=== PATIENT | male | born 1955 | race Caucasian/White ===

== ENCOUNTER → 2017-12-12 08:05 | Outpatient (CLI) | payer BC, SELFPAY | PROVIDERS: Family Provider Family Medicine; PCP Family Medicine; Visit Provider Family Medicine | DX: R13.10 Dysphagia, unspecified (principal) | CPT/HCPCS: 74246 ==

== ENCOUNTER → 2019-12-07 14:03 | Outpatient (CLI) | payer BC, SELFPAY ==
--- NOTE | 2019-12-07 14:16 | EKG12_ITS ---
Test Reason : PREOP Blood Pressure : / mmHG Vent. Rate : 064 BPM Atrial Rate : 064 BPM P-R Int : 160 ms QRS Dur : 078 ms QT Int : 426 ms P-R-T Axes : 055 005 016 degrees QTc Int : 439 ms Normal sinus rhythm Normal ECG Confirmed by EVENS DOUGHERTY, TAMMI ([id number]), senior technical editor CARLOS BANGURA ([id number]) on 12/08/2019 10:48:52 AM Referred By: Nathaniel Garcia Confirmed By:TAMMI HORNER MD
[2019-12-07 14:35] LABS: Hematocrit 46.1 % (40-54); Hemoglobin 15.1 g/dL (13.0-16.5); Mean Corp Hgb Conc 32.8 g/dL (32-36); Mean Corpuscular Hgb 29.9 pg (27.0-32.0); Mean Corpuscular Volume 91.3 fL (80-94); Mean Platelet Vol. 9.4 fl (6.2-12.0); Platelet Count 246 K/mm3 (150-450); RBC Distribution Width CV 13.4 % (11.6-14.6); RBC Distribution Width SD 44.5 fl (35.1-43.9); Red Blood Count 5.05 M/mm3 (4.6-6.2); White Blood Count 8.1 K/mm3 (4.4-11.0)
[2019-12-07 14:49] LABS: Anion Gap 6 (5-15); BUN 17 mg/dL (7-18); BUN/Creat Ratio 17.6 RATIO (10-20); Chloride 106 mmol/L (98-107); Creatinine, Serum 0.96 mg/dL (0.70-1.30); EST Glomerular Filtration Rate 84 mL/min (>60); Est Glom Filt Rate - Afr Amer 101 mL/min (>60); Glucose 90 mg/dL (74-106); Potassium 3.5 mmol/L (3.5-5.1); Sodium Level 139 mmol/L (136-145)
== END ==
PROVIDERS: PCP Family Medicine; Referring Provider Physician Assistant Surgical; Visit Provider Physician Assistant Surgical
DX: Z01.810 Encounter for preprocedural cardiovascular examination (principal); Z01.818 Encounter for other preprocedural examination
CPT/HCPCS: 36415; 80048; 85027; 93005

== ENCOUNTER → 2019-12-08 11:20 | Outpatient (CLI) | payer BC, SELFPAY | PROVIDERS: PCP Family Medicine; Referring Provider Physician Assistant Surgical; Visit Provider Physician Assistant Surgical | DX: Z11.59 Encounter for screening for other viral diseases (principal) | CPT/HCPCS: 87635; 94799; U0003 ==

== ENCOUNTER 2024-12-27 11:38 | Emergency (ER) | payer MEDICARE, BC, SELFPAY ==
[2024-12-27 11:38] VITALS: BP 198/97; PULSE 81; RESP 16; TEMP 36.1; O2SAT 100; BMI 31.2
--- NOTE | 2024-12-27 11:53 | EDS_ITS ---
HPI HPI - GI History of Present Illness Chief Complaint: GI Bleed Informant: patient Abdominal Pain/Flank Pain Onset: Today Current Severity: Mild Nausea/Vomiting/Emesis GI Symptom: Negative for Nausea or Vomiting Diarrhea/Melena/Hematochezia GI Symptom: Positive for Melena; Negative for Diarrhea or Hematochezia Associated Symptoms Associated Symptoms: Negative for Dysuria, Frequency, Hematuria or Urgency Narrative Narrative: 69-year-old male today had blood in his stool. It was mainly dark. He has no history of GI bleed. He has never had rectal bleeding. He denies any nausea no weight loss. He has had no significant abdominal surgeries. Is not ever had upper or lower endoscopy they tried 1 time to do a colonoscopy but he said it was not very informative because he was not cleaned out enough. No history of cancer. He denies any abdominal pain. No nausea or vomiting. No hematemesis. He does use both meloxicam and allopurinol for gout and arthritis. He does occasionally use prilosec for hiatal hernia. Prior similar symptoms: No Recent Illness/Hospitalization: No PFSH [facility] Medical History (Updated 12/27/24 @ 13:[address] Calin Orellana MD) Hypertension GERD (gastroesophageal reflux disease) Hiatal hernia Home Medications ?Medication ?Instructions ?Recorded ?Last Taken ?Type pantoprazole 40 mg tablet,delayed 40 mg PO BID #60 tab s 12/27/24 Unknown Rx release (Protonix) Allergy/AdvReac Type Severity Reaction Status Date / Time Penicillins (PCN) Allergy Intermediate Hives Verified 12/27/24 11:40 Family History no significant family his Social History Smoking Status: Never smoker ROS ROS ED ROS Narrative Denies recent illness. Constitutional Constitutional ED: Denies chills or fever(s) ENT ENT ED: Denies ear pain Cardiovascular Cardiovascular: Denies chest pain Respiratory/Chest Respiratory/Chest: Denies cough or dyspnea Gastrointestinal Gastrointestinal: Denies abdominal pain Genitourinary Genitourinary ED: Denies dysuria or hematuria Musculoskeletal Musculoskeletal: Denies arthralgias Integumentary Denies abscess Neurologic Neurologic: Denies headache(s) Psychiatric Psychiatric: Denies anxiety or depression Endocrine Endocrinology: Denies polydipsia or polyphagia Hematologic/Lymphatic Hematologic/Lymphatic: Denies easy bleeding, easy bruising or lymphadenopathy Allergic/Immunologic Allergic/Immunologic ED: Denies mouth swelling, tongue swelling or urticaria EXAM Physical Exam Narrative Exam Narrative: 61-year-old male sitting upright in bed no acute distress. at bedside. Vital signs are stable afebrile. No acute distress. H EENT exam pupils round react light. Moist mucous members. Neck nontender no lymphadenopathy. Back nontender. Lungs clear to auscultation bilaterally. Heart regular rhythm no murmur. Rate about 80. Chest wall and ribs are nontender. Abdomen soft, nontender, nondistended normal bowel sounds without peritoneal signs. Moving all 4 extremities. Nontender no edema. Neurologically is awake alert. Answering question following commands. Rectal exam really no significant external hemorrhoids on his anus. Rectal exam no mass but he does have black stool consistent with a suspected upper GI bleed. Const Vital Signs: 12/27/24 11:38 Temperature 96.9 F L Temperature Source Temporal Pulse Rate 81 Respiratory Rate 16 Blood Pressure 198/97 H Blood Pressure Mean 130 Pulse Ox 100 Positive well nourished and well developed; Negative for cachectic, contractures or unkempt General Appearance ED: well developed; Negative for unkempt, cachectic, contractures or pallor Nutritional Appearance: Negative for cachectic HEENT Reports moist mucous membranes normocephalic and atraumatic Eyes PERRL and EOMs intact bilaterally General Eye ED: Negative for pale conjunctiva or scleral icterus Neck no lymphadenopathy, supple and no JVD Resp normal respiratory effort and clear to auscultation bilaterally Cardio regular rate, S1 normal heart sound, S2 normal heart sound and no murmurs GI non-tender, non-distended and no masses GI Narrative: Rectal exam no mass. Black stool consistent with upper GI bleed. Abdomen is completely nontender. No external hemorrhoids. Auscultation: normoactive bowel sounds Palpation: soft; Negative for tender, guarding, mass, pulsatile mass or rebound tenderness present Back/Spine no CVA tenderness Extremity full ROM Neuro CN's II-XII intact bilaterally and moves all extremities Sensorium / Orientation: alert, oriented to person, oriented to place and oriented to time Motor Exam: strength 5/5 throughout Psych mental status grossly normal and thought process normal Appearance: Negative for unkempt Skin no wounds General Skin Exam: Negative for jaundice or pallor Lesions: no lesions Rashes: no rashes MDM MDM MDM Narrative Medical decision making narrative: 69-year-old male had dark stool and blood this morning. He is never had a GI bleed. I suspect this may be upper because it is maroon to black stool. He will be started on Protonix. Blood counts to be obtained. He will be typed and screened. I do not think he needs any imaging he is having no abdominal pain I do not suspect he is bleeding enough to see it on CAT scan. Repeat exam patient is doing well at 1:20 PM. Abdomen is benign. He has not passed any more blood or black stool since he has been here. He has had no vomiting or nausea. His labs are unremarkable. I spoke to Dr. Marsh of GI. Both he and I and the patient and his are comfortable with him being discharged home. He will be started on Protonix twice a day. He will stop the meloxicam and allopurinol. And he will follow-up with Dr. Marsh's office this week. Were trying to schedule an appointment through the emergency department. Patient knows to return if he is passing more black or bloody stools, develops abdominal pain, vomiting blood or just feels worse. History & Record Review Discussion w/independent historian: Patient Additional record(s) reviewed:: Prior inpatient record, Prior outpatient record, Prior ED visit and Prior labs Lab Data Attestation: I reviewed the patient's lab results. Lab results narrative: CBC shows normal white count of 7 H&H 14.241 consistent with his baseline. Platelets 231. Electrolytes show sodium 140 gap 11. Normal BUN of 14 creatinine of 0.8. Glucose of 163. Labs: Laboratory Results - last 24 hr 12/27/24 12:20 WBC 7.0 RBC 4.62 Hgb 14.2 Hct 41.7 MCV 90.3 MCH 30.7 MCHC 34.1 RDW Std Deviation 46.9 H RDW Coeff of Mehul 14.3 Plt Count 231 MPV 9.6 Immature Gran % (Auto) 0.300 Neut % (Auto) 66.4 Lymph % (Auto) 25.3 [place] % (Auto) 5.0 Eos % (Auto) 2.1 Baso % (Auto) 0.9 Absolute Neuts (auto) 4.7 Absolute Lymphs (auto) 1.78 Nucleated RBC % 0 Sodium 140 Potassium 4.1 Chloride 105 Carbon Dioxide 23.7 Anion Gap 11 BUN 14 Creatinine 0.88 Estim Creat Clear Calc 91.81 Est GFR (MDRD) Non-Af 94 BUN/Creatinine Ratio 15.6 Glucose 163 H Calcium 8.8 Discharge Plan Triage Chief Complaint: GI Bleed ED Provider: Calin Orellana Dx/Rx/DC Orders Clinical Impression: GI (gastrointestinal bleed) Instructions: ED Lower GI Bleeding (Stable) Prescriptions: New pantoprazole [Protonix] 40 mg tablet,delayed release (DR/EC) 40 mg PO BID Qty: 60 0RF Primary Care Provider: Talha Gong Referrals: Talha Gong MD [Primary Care Provider] - Wang Marsh DO [Med Staff - Active Staff] - As soon as possible Activity Restrictions/Additional Instructions: You have GI bleeding. I suspect it is coming from your stomach and may be from the medications meloxicam and allopurinol. It could also be lower bleeding from the right side of your colon. The reason we know this is because of the black stool and dark blood is usually either stomach or right-sided colon. Stop the allopurinol and stop the meloxicam. We will start you on a stomach medication called Protonix that you will take it twice a day. Call and follow-up with Dr. Marsh the plumber maintenance this week. If you have increased bleeding or throw up any blood or you are just feeling worse return. Print Language: Albanian Disposition Disposition: Home, Self Care
--- OUTSIDE RECORDS SUMMARY | 2024-12-27 12:19 | XMS RPT_ITS | CCD ---
Author Organization [facility] Care Team Providers Care Hand Laster Name Role Phone Talha Fraga MD Primary Care Provider Talha Fraga MD Primary Care Provider [phone] [place] [employer] HAND.Aditi DAVID Unavailable Alee Pham PA-C Unavailable [phone] TALHA FRAGA Primary Care Unavailable JOSE FRANCISCO MAIN Attending Unavailable IVONNE BALDERAS Referring Unavailable IVONNE BALDERAS Attending Unavailable TALHA FRAGA Primary Care Unavailable TALHA FRAGA Referring Unavailable TALHA FRAGA Primary Care Unavailable TALHA FRAGA Referring Unavailable TALHA FRAGA Primary Care Unavailable TALHA FRAGA Attending Unavailable TK STILES Referring Unavailab le TALHA FRAGA Primary Care Unavailable TALHA FRAGA Referring Unavailable TALHA FRAGA Primary Care Unavailable TALHA FRAGA Primary Care Unavailable TALHA FRAGA Primary Care Unavailable TALHA FRAGA Referring Unavailable TALHA FRAGA Primary Care Unavailable TALHA FRAGA Referring Unavailable Alee Pham PA-C Unavailable [phone] [place] [employer] HAND.Aditi DAVID Unavailable Alee Pham PA-C Unavailable Allergies Allergy Classification Reported Allergen(s) Allergy Type Date of Onset Reaction(s) Facility (19 sources) Ampicillin; Translations: [AMPICILLIN] Drug Allergy 02-15-2005 [facility] [place] Work Phone: (15 sources) Penicillins; Translations: [PENICILLINS] Drug Allergy 02-15-2005 [facility] [place] Work Phone: (4 sources) Penicillins Drug Allergy 02-15-2005 Hives [facility] Medications Current Medications Medication Drug Class(es) Dates Sig (Normalized) Sig (Original) allopurinol 300 mg oral tablet (20 sources) Xanthine Oxidase Inhibitor Start: 04-25-2021 End: 10-14-2024 take 1 tablet by mouth once daily allopurinol (ZYLOPRIM) 300 mg tablet Take 1 tablet by mouth once daily. 90 tablet 1 10/15/2024 Active Comment on above: Take 1 tablet by jeremy once daily. ascorbic acid 500 mg oral tablet (18 sources) Vitamin C Start: 11-22-2014 take 1 tablet by mouth once daily ascorbic acid (VITAMIN C) 500 mg tablet Take 1 tablet by mouth once daily. 0 11/22/2014 Active Comment on above: Take 1 tablet by jeremy th once daily. cholecalciferol 0.05 mg oral capsule (19 sources) Vitamin D Start: 02-03-2024 take 1 capsule by mouth once daily Cholecalciferol, Vitamin D3, 50 mcg (2,000 unit) cap Take 1 capsule by mouth once daily. 02/03/2024 Active Start: 11-22-2014 End: 02-03-2024 take 1 capsule by mouth once daily Cholecalciferol, Vitamin D3, 5,000 unit cap Take 1 capsule by mouth once daily. 0 11/22/2014 02/03/2024 Discontinued (Clinical Decision) Comment on above: Take 1 capsule by mo [facility] once daily. chondroitin sulfates 400 mg / glucosamine hydrochloride 500 mg oral capsule (18 sources) Start: 8 gluc samuels/chondro samuels a/vit c/mn(GLUCOSAMINE-CHO NDROITIN MAX ST 500 MG-400 MG CAP) 2 tabs daily 0 07/17/2007 Active Comment on above: 2 tabs daily COMPOUNDED PRESCRIPTION (18 sources) Start: 7 COMPOUNDED PRESCRIPTION Prostate supplement - Revive - OTC 0 01/31/2017 Active Comment on above: Prostate supplement - Revive - OTC lisinopril 20 mg oral tablet (17 sources) Angiotensin Converting Enzyme Inhibitor Start: 5 End: 5 take 1 tablet by mouth once daily lisinopril (ZESTRIL) 20 mg tablet Take 1 tablet by mouth once daily. 90 tablet 1 10/15/2024 Active Start: 01-24-2023 End: 07-31-2024 take 1 tablet by mouth once daily lisinopril (ZESTRIL) 20 mg tablet Take 1 tablet by mouth once daily. 90 tablet 1 01/31/2024 07/31/2024 Discontinued Comment on above: Take 1 tablet by jeremy th once daily. meloxicam 15 mg oral tablet (11 sources) Nonsteroidal Anti-inflammatory Drug Start: take 1 tablet by mouth once daily at mealtime meloxicam (MOBIC) 15 mg tablet Take 1 tablet by mouth once daily. Take with food. 90 tablet 1 01/31/2024 Active multivitamins w-minerals/lut(CENTRU M SILVER TAB) (18 sources) Start: 008 multivitamins w-minerals/lut(CENTR UM SILVER TAB) Take one(1) tablet daily. 0 07/17/2007 Active Comment on above: Take one(1) tablet d aily. niacin 500 mg oral tablet (18 sources) Nicotinic Acid Start: 008 NIACIN 500 MG TAB Take one(1) tablet daily at bedtime. 0 07/17/2007 Active Comment on above: Take one(1) tablet d aily at bedtime. omeprazole 20 mg delayed release oral tablet (14 sources) Proton Pump Inhibitor Start: take 1 tablet by mouth once daily before breakfast Omeprazole Magnesium (PRILOSEC OTC) 20 mg tablet Take 1 tablet by mouth daily before breakfast. 1/2 hr before meal. 01/24/2023 Active Comment on above: Take 1 tablet by jeremy th daily before breakfast. 1/2 hr before meal. oseltamivir 75 mg oral capsule (1 source) Neuraminidase Inhibitor Start: End: take 1 capsule by mouth twice daily oseltamivir (TAMIFLU) 75 mg capsule Take 1 capsule by mouth two times a day for 5 days. 10 capsule 05/14/2024 05/19/2024 Active polyethylene glycol 3350 335369 mg / potassium chloride 2970 mg / sodium bicarbonate 6740 mg / sodium chloride 5860 mg / sodium sulfate 72549 mg powder for oral solution (1 source) Osmotic Laxative Start: End: peg 3350-Electrolytes (GOLYTELY) 236-22.74-6.74 -5.86 gram suspension Indications: Screening for colon cancer Take 4,000 mL by mouth one time only for 1 dose. Refer to printed prep instructions from your provider. 4000 mL 02/03/2024 02/03/2024 Active Zinc (18 sources) Start: 015 take 1 tablet by mouth once daily Zinc (CHELATED ZINC) 50 mg tab Take 1 tablet by mouth once daily. 0 11/22/2014 Active Comment on above: Take 1 tablet by [facility] once daily. Completed/Discontinued Medications Medication Drug Class(es) Dates Sig (Normalized) Sig (Original) Benzocaine (1 source) Standardized Chemical Allergen Start: 02-06-2024 End: 02-06-2024 1 [place], TOPICAL, DIRECTED, Starting on Cherelle 02/06/24 at 1330, Until Cherelle 02/06/24 at 1729, Dosing as directed for intraprocedural use only - Pharmaceutical Waste: Aerosol -, Intraprocedure calcium chloride 0.0014 meq/ml / potassium chloride 0.004 meq/ml / sodium chloride 0.103 meq/ml / sodium lactate 0.028 meq/ml injectable solution (1 source) Start: 02-06-2024 End: 02-06-2024 take 30 mL intravenously every hour 30 mL/hr, INTRAVENOUS, CONTINUOUS, Starting on Cherelle 02/06/24 at 1230, Until Cherelle 02/06/24 at 1347, Preprocedure celecoxib 200 mg oral capsule (5 sources) Nonsteroidal Anti-inflammatory Drug Start: 01-25-2022 End: 10-02-2022 take 1 capsule by mouth twice daily celecoxib (CELEBREX) 200 mg capsule Take 1 capsule by mouth twice daily. 180 capsule 1 07/17/2022 10/02/2022 Discontinued (Lack of Efficacy) Start: 11-20-2021 End: 01-25-2022 take 1 capsule by mouth once daily celecoxib (CELEBREX) 200 mg capsule Take 1 capsule by mouth once daily. 90 capsule 1 11/20/2021 01/25/2022 Discontinued Comment on above: Take 1 capsule by mo ut twice daily. Take 1 capsule by mo [facility] once daily. diphenhydrAMINE (1 source) Histamine-1 Receptor Antagonist Start: 2023 End: 2023 12.5-50 mg, INTRAVENOUS, DIRECTED, Starting on Cherelle 02/06/24 at 1330, Until Cherelle 02/06/24 at 1729, DOSING DIRECTED BY PHYSICIAN FOR PROCEDURAL SEDATION ONLY, Intraprocedure etodolac 300 mg oral capsule (3 sources) Nonsteroidal Anti-inflammatory Drug Start: 2022 End: 2022 take 1 capsule by mouth twice daily etodolac (LODINE) 300 mg capsule Take 1 capsule by mouth twice daily. 60 capsule 5 10/02/2022 01/24/2023 Discontinued Comment on above: Take 1 capsule by [facility] twice daily. 1 ml fentaNYL 0.05 mg/ml injection (1 source) Opioid Agonist Start: 2023 End: 2023 25-100 mcg, INTRAVENOUS, DIRECTED, Starting on Cherelle 02/06/24 at 1330, Until Cherelle 02/06/24 at 1729, DOSING DIRECTED BY PHYSICIAN FOR PROCEDURAL SEDATION ONLY, Intraprocedure hydroCHLOROthiazide 12.5 mg / lisinopril 10 mg oral tablet (7 sources) Thiazide Diuretic, Angiotensin Converting Enzyme Inhibitor Start: 2020 End: 2022 take 10-12.5 mg by mouth once lisinopril-hydroCHLO ROthiazide (ZESTORETIC) 10-12.5 mg per tablet Indications: Essential hypertension, benign Take 1 tablet by mouth once daily. 90 tablet 1 07/17/2022 01/24/2023 Discontinued (Changing Therapy/Dosage Form) Comment on above: Take 1 tablet by [facility] once daily. 5 ml midazolam 1 mg/ml injection (1 source) Benzodiazepine Start: 2023 End: 2023 1-5 mg, INTRAVENOUS, DIRECTED, Starting on Cherelle 02/06/24 at 1330, Until Cherelle 02/06/24 at 1729, DOSING DIRECTED BY PHYSICIAN FOR PROCEDURAL SEDATION ONLY, Intraprocedure mometasone furoate 1 mg/ml topical cream (5 sources) Corticosteroid Start: 2019 End: 2022 mometasone (ELOCON) 0.1 % cream Indications: Granuloma annulare Apply 1 application to affected area once daily. 45 g 1 01/11/2020 01/24/2023 Discontinued Comment on above: Apply 1 application to affected area once daily. Problems Active Problems Problem Classification Problem Date Documented Date Episodic/Chronic Disorders of lipid metabolism (20 sources) Mixed hyperlipidemia; Translations: [Mixed hyperlipidemia] Onset: 12-06-2015 Chronic Esophageal disorders (20 sources) Gastroesophageal reflux disease without esophagitis; Translations: [Gastro-esophageal reflux disease without esophagitis] Onset: 11-22-2014 Chronic Essential hypertension (20 sources) Benign essential hypertension; Translations: [Essential (primary) hypertension] Onset: 05-28-2005 Chronic Fever of unknown origin (1 source) Fever; Translations: [Fever, unspecified] 05-14-2024 Episodic Gout and other crystal arthropathies (20 sources) Chronic gout without tophus; Translations: [Chronic gout, unspecified, without tophus (tophi)] Onset: 10-29-2007 Chronic Hyperplasia of prostate (20 sources) Benign prostatic hypertrophy with outflow obstruction; Translations: [Benign prostatic hyperplasia with lower urinary tract symptoms] Onset: 11-22-2014 Chronic Influenza (1 source) Influenza due to Influenza A virus; Translations: [Influenza due to other identified influenza virus with other respiratory manifestations] 05-14-2024 Episodic Osteoarthritis (12 sources) Arthritis; Translations: [Unspecified osteoarthritis, unspecified site] Onset: 01-31-2024 01-31-2024 Chronic Other nervous system disorders (18 sources) Bilateral carpal tunnel syndrome; Translations: [Carpal tunnel syndrome, bilateral upper limbs] Onset: 11-22-2014 10-12-2020 Chronic Other nutritional; endocrine; and metabolic disorders (1 source) Body mass index 30+ - obesity; Translations: [Body mass index (BMI) 30.0-30.9, adult] 01-31-2024 Chronic Other nutritional; endocrine; and metabolic disorders (14 sources) Hypervitaminosis D; Translations: [Hypervitaminosis D] Onset: 02-03-2024 02-03-2024 Chronic Other nutritional; endocrine; and metabolic disorders (1 source) Hypervitaminosis D; Translations: [High vitamin D level] Onset: 02-03-2024 Chronic Other nutritional; endocrine; and metabolic disorders (1 source) Body mass index (BMI) 30.0-30.9, adult; Translations: [Body mass index (BMI) 30.0-30.9, adult] Onset: 01-31-2024 Chronic Poisoning by nonmedicinal substances (8 sources) Toxic effect of lead and its compounds, undetermined, initial encounter; Translations: [Toxic effect of unspecified lead compound] Onset: 03-14-2024 02-03-2024 Chronic Poisoning by nonmedicinal substances (1 source) Toxic effect of lead and its compounds, undetermined, sequela; Translations: [Late effect of toxic effects of nonmedical substances] 03-14-2024 Episodic Spondylosis; intervertebral disc disorders; other back problems (20 sources) Degeneration of cervical intervertebral disc; Translations: [Other cervical disc degeneration, unspecified cervical region] Onset: 11-22-2014 10-12-2020 Chronic Past or Other Problems Problem Classification Problem Date Documented Da te Episodic/Chronic Abdominal hernia (19 sources) Hiatal hernia; Translations: [Diaphragmatic hernia without obstruction or gangrene] Onset: 10-26-2020 10-26-2020 Episodic Administrative/social admission (20 sources) Advance directive discussed with patient; Translations: [Other specified counseling] Onset: 01-25-2022 Episodic Genitourinary symptoms and ill-defined conditions (2 sources) Microscopic hematuria; Translations: [Other microscopic hematuria] Onset: 03-13-2024 02-03-2024 Episodic Other acquired deformities (16 sources) Lumbar spondylolisthesis; Translations: [Spondylolisthesis , lumbar region] Onset: 01-24-2023 01-24-2023 Episodic Other aftercare (20 sources) Patient encounter status; Translations: [Other senior living (current) drug therapy] Onset: 10-12-2020 10-12-2020 Episodic Other aftercare (1 source) Other senior living (current) drug therapy; Translations: [Medication management] Onset: 10-12-2020 Episodic Other gastrointestinal disorders (10 sources) Burping; Translations: [Eructation] Onset: 02-06-2024 02-03-2024 Episodic Other gastrointestinal disorders (1 source) Eructation; Translations: [Belching] Onset: 02-06-2024 Episodic Other inflammatory condition of skin (18 sources) Granuloma annulare; Translations: [Granuloma annulare] Onset: 11-21-2018 10-12-2020 Episodic Other screening for suspected conditions (not mental disorders or infectious disease) (20 sources) Raised prostate specific antigen; Translations: [Elevated prostate specific antigen [PSA]] Onset: 11-22-2014 Episodic Residual codes; unclassified (20 sources) Contact with and (suspected) exposure to lead; Translations: [Personal history of contact with and (suspected) exposure to lead] Onset: 05-30-2015 05-30-2015 Episodic Residual codes; unclassified (11 sources) Active living will ; Translations: [Other specified health status] Onset: 01-31-2024 01-31-2024 Episodic Results Test Name Value Interpretation Reference Range Facility 25(OH)D3 [facility] 2024 25-hydroxyvitamin D3 [Mass/Vol] 77.3 ng/mL Normal 31.0-80.0 [facility] Comment on above: Order Comment: Speci men Type: BLOOD SPECIMENOrdering Facility: [facility] Address: [address] [place] [address] Result Comment: Clas sification of 25 OH Vitamin D status: Deficiency/Insufficiency: < or = 30 ng/ml. Sufficiency/Optimal Levels: 31-80 ng/mL Toxicity: > 100 ng/mL. Test performed by chemiluminescent immunoassay. Performed By: #### 1 989-3 ####[facility] [id number] [address] 25(OH)D3 [facility] 2024 25-hydroxyvitamin D3 [Mass/Vol] 89.0 ng/mL High 31.0-80.0 [facility] Comment on above: Order Comment: Speci men Type: BLOOD SPECIMENOrdering Facility: [facility] Address: [address] [place] [address] Result Comment: Clas sification of 25 OH Vitamin D status: Deficiency/Insufficiency: < or = 30 ng/ml. Sufficiency/Optimal Levels: 31-80 ng/mL Toxicity: > 100 ng/mL. Test performed by chemiluminescent immunoassay. Performed By: #### 1 989-3 ####[facility] [id number] [address] [place] CNOVon 05-14-2024 CNOV Office Visit (UCWSTR ) ARTHUR DIEGO ([id number]) 1955 M Date Time Provider Department 05/14/24 3:45 PM TALHA HUERTA [facility] During your visit today, we recorded the following information about you: Temperature Pulse Respiration Blood pressure 99.8 degrees 102/minute 20/minute 157/98 Weight 95.4 kg Talha Huerta, YUSRA[employer] 05/14/2024 4:00 PM Signed Subjective HPI Nontoxic-appearing male presents urgent care chief complaint flulike symptoms. Duration of symptom 1 day. Associated symptoms cough shortness of breath with coughing body aches chills fatigue sore throat headache. States symptoms were abrupt. Sick contact . OTC medications Mucinex Tylenol. Denies any chest pain hemoptysis pleuritic pain nausea vomiting abdominal pain change in bowel or bladder habits. Past medical history prescription medications allergies reviewed. .Patient presents with: Cough: Sob with intermittent low grade temp x 1 day PAST MEDICAL HISTORY Diagnosis Date Advance directive discussed with patient 01/25/2022 Discussed 12/2021, declined packets Anterolisthesis of lumbar spine 01/24/2023 MRI: 11/06/2022: L5-S1 2-3 mm Arthritis 01/31/2024 On meloxicam BENIGN HYPERTENSION 05/28/2005 BPH with urinary obstruction 11/22/2014 Carpal tunnel syndrome, bilateral 11/22/2014 Cerebral cysts Degenerative disc disease, cervical 11/22/2014 Elevated prostate specific antigen (PSA) 11/22/2014 Encounter for Medicare annual wellness exam 10/26/2020 Medicare Part B: 08/27/2021 Last done: 01/24/2023 Gastroesophageal reflux disease 11/22/2014 Gout 10/29/2007 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 Patient declined. Mixed hyperlipidemia 12/06/2015 Spondylosis of lumbar region without myelopathy or radiculopathy 11/21/2018 Well adult exam 10/26/2020 Last done: 10/26/2020 PAST SURGICAL HISTORY Procedure Laterality Date CARPAL TUNNEL Left 12/18/2019 COLONOSCOPY FLX DX W/COLLJ SPEC WHEN PFRMD 05/15/13 Colonoscopy NEUROPLASTY AND/TRANSPOSITION ULNAR NERVE ELBOW Left 12/18/2019 ALLERGIES Ampicillin and Penicillins MEDICATIONS Cholecalciferol, Vitamin D3, 50 mcg (2,000 unit) cap Take 1 capsule by mouth once daily. allopurinol (ZYLOPRIM) 300 mg tablet Take 1 tablet by mouth once daily. lisinopril (ZESTRIL) 20 mg tablet Take 1 tablet by mouth once daily. meloxicam (MOBIC) 15 mg tablet Take 1 tablet by mouth once daily. Take with food. Omeprazole Magnesium (PRILOSEC OTC) 20 mg tablet Take 1 tablet by mouth daily before breakfast. 1/2 hr before meal. COMPOUNDED PRESCRIPTION Prostate supplement - Revive - OTC Zinc (CHELATED ZINC) 50 mg tab Take 1 tablet by mouth once daily. ascorbic acid (VITAMIN C) 500 mg tablet Take 1 tablet by mouth once daily. multivitamins w-minerals/lut(CENTRUM SILVER TAB) Take one(1) tablet daily. gluc samuels/chondro samuels a/vit c/mn(GLUCOSAMINE-CHONDROITIN MAX ST 500 MG-400 MG CAP) 2 tabs daily NIACIN 500 MG TAB Take one(1) tablet daily at bedtime. FAMILY HISTORY Problem Relation Age of Onset Hypertension Mother other (dementia [Other]) Mother other (pancreatic cancer [Other]) Father other (ovarian cancer [Other]) Sister Chronic Kidney Disease Sister on dialysis None Brother Social History Tobacco Use Smoking status: Never Smokeless tobacco: Never Vaping Use Vaping status: Never Used Substance Use Topics Alcohol use: Yes Comment: RARE Drug use: Never BP 157/98 Pulse 102 Temp 37.7 ?C (99.8 ?F) (Right Tympanic) Resp 20 Wt 95.4 kg (210 lb 5.1 oz) SpO2 98% BMI 31.91 kg/m? Review of Systems Constitutional: Positive for chills, fever and malaise/fatigue. HENT: Positive for congestion and sore throat. Negative for ear discharge, ear pain and sinus pain. Eyes: Negative for blurred vision, pain, discharge and redness. Respiratory: Positive for cough. Negative for hemoptysis, sputum production, shortness of breath, wheezing and stridor. Cardiovascular: Negative for chest pain. Gastrointestinal: Negative for abdominal pain, diarrhea, nausea and vomiting. Musculoskeletal: Positive for myalgias. Skin: Negative for itching and rash. Neurological: Positive for headaches. Negative for dizziness. Objective Physical Exam Constitutional: General: He is not in acute distress. Appearance: He is not diaphoretic. HENT: Head: Normocephalic. Jaw: No trismus, tenderness, swelling or pain on movement. Nose: Congestion present. Mouth/Throat: Mouth: Mucous membranes are moist. Pharynx: Oropharynx is clear. Uvula midline. No pharyngeal swelling, oropharyngeal exudate, posterior oropharyngeal erythema or uvula swelling. Eyes: Conjunctiva/sclera: Conjunctivae normal. Pupils: Pupils are equal, round, and reactive to lig (more content not included)... Normal [facility] INFLUENZA A&B MOLECULAR (POC )on 05-14-2024 Flu A (POCT) Positive Abnormal Negative [facility] Comment on above: Location:[address], [facility] Interpretation and review of laboratory results Abnormal [facility] Procedural Control Valid [facility] Location:[address], [address] [place] [address] POINT OF CARE [facility] 25(OH)D3 [facility] 2023 25-hydroxyvitamin D3 [Mass/Vol] 99.3 ng/mL High 31.0-80.0 [facility] Comment on above: Order Comment: Speci men Type: BLOOD SPECIMENOrdering Facility: [facility] Address: [address] [place] [address] Result Comment: Clatavo sification of 25 OH Vitamin D status: Deficiency/Insufficiency: < or = 30 ng/ml. Sufficiency/Optimal Levels: 31-80 ng/mL Toxicity: > 100 ng/mL. Test performed by chemiluminescent immunoassay. Performed By: #### 1 989-3 ####[facility] [id number] [address] STATES OF [facility] CNPMira 04-16-2024 CNPN Telephone (FAMPWS) ARTHUR DIEGO ([id number]) 1955 Date Time Provider Department 04/16/24 [facility] During your visit today, we recorded the following information about you: Talha Fraga MD 04/16/2024 7:46 PM Signed Let patient know his Vit is improved at 99.3 compared to 126 last month. Advise to cont to avoid any supplemental Vit D and will repeat in a month. Order placed. Lulu Mckeon MA 04/17/2024 8:27 AM Signed Left message for patient to contact office. .TEQUILA De La Rosa Kathryn, MA 04/20/2024 10:39 AM Signed Message left for pt to call back for results. Laila Reyes MA, LPN 04/23/2024 2:53 PM Signed Patient notified of results and provider's instructions. Patient verbalizes understanding. Laila Greer LPN Allergies As of Date: 04/16/2024 Noted Allergy Reaction AMPICILLIN 02/15/2005 4 - Hives PENICILLINS 02/15/2005 4 - Hives Date Reviewed: 02/06/2024 Reviewed by: Aruna Dougherty, RN - Fully Assessed Reason for Visit: Results [95] Primary Visit Diagnosis:High vitamin D level [E67.3] Order(s):VITAMIN D 25 HYDROXY [SQVITD] Order #: [id number] FUTURE Prescriptions as of 04/23/2024 - Cholecalciferol, Vitamin D3, 50 mcg (2,000 unit) cap Take 1 capsule by mouth once daily. - allopurinol (ZYLOPRIM) 300 mg tablet Take 1 tablet by mouth once daily. - lisinopril (ZESTRIL) 20 mg tablet Take 1 tablet by mouth once daily. - meloxicam (MOBIC) 15 mg tablet Take 1 tablet by mouth once daily. Take with food. - Omeprazole Magnesium (PRILOSEC OTC) 20 mg tablet Take 1 tablet by mouth daily before breakfast. 1/2 hr before meal. - COMPOUNDED PRESCRIPTION Prostate supplement - Revive - OTC - Zinc (CHELATED ZINC) 50 mg tab Take 1 tablet by mouth once daily. - ascorbic acid (VITAMIN C) 500 mg tablet Take 1 tablet by mouth once daily. - multivitamins w-minerals/lut(CENTRUM SILVER TAB) Take one(1) tablet daily. - gluc samuels/chondro samuels a/vit c/mn(GLUCOSAMINE-CHONDROITIN MAX ST 500 MG-400 MG CAP) 2 tabs daily - NIACIN 500 MG TAB Take one(1) tablet daily at bedtime. Problem List As Of Date 04/16/2024 Noted Resolved Essential hypertension, benign [I10] 05/28/2005 Gout [M10.9] 10/29/2007 BPH with urinary obstruction [N40.1, N13.8] 11/22/2014 Carpal tunnel syndrome, bilateral [G56.03] 11/22/2014 Elevated prostate specific antigen (PSA) [R97.2*11/22/2014 Gastroesophageal reflux disease [K21.9] 11/22/2014 Degenerative disc disease, cervical [M50.30] 11/22/2014 Lead exposure [Z77.011] 05/30/2015 Mixed hyperlipidemia [E78.2] 12/06/2015 Spondylosis of lumbar region without myelopathy*11/21/2018 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/21/2018 Encounter for screening for diabetes mellitus [*10/12/2020 Medication management [Z79.899] 10/12/2020 Encounter for Medicare annual wellness exam [Z0*10/26/2020 Hiatal hernia [K44.9] 10/26/2020 Advance directive discussed with patient [Z71.8*01/25/2022 Anterolisthesis of lumbar spine [M43.16] 01/24/2023 Screening for colon cancer [Z12.11] 01/31/[address] [Z78.9] 01/31/2024 Arthritis [M19.90] 01/31/2024 High vitamin D level [E67.3] 02/03/2024 Belching [R14.2] 02/06/2024 Lead poisoning [T56.0X1A] 03/14/2024 Encounter Status:[facility] Tele[facility] (FAMPWS) ARTHUR DIEGO ([id number]) 1955 M Date Time Provider Department 03/14/24 [facility] During your visit today, we recorded the following information about you: Talha Fraga MD 03/14/2024 8:38 AM Signed Let patient know his UA is ok. His Vit D is still way to high. Advise him to stop any supplemental Vit D he is taking. Order placed to repeat in a month. Tommy Forbes LPN 03/14/2024 10:39 AM Signed Telephone call placed to patient. Made aware of results and recommendations. Voices understanding. 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 - allopurinol (ZYLOPRIM) 300 mg tablet Take 1 tablet by mouth once daily. - lisinopril (ZESTRIL) 20 mg tablet Take 1 tablet by mouth once daily. - meloxicam (MOBIC) 15 mg tablet Take 1 tablet by mouth once daily. Take with food. - Omeprazole Magnesium (PRILOSEC OTC) 20 mg tablet Take 1 tablet by mouth daily before breakfast. 1/2 hr before meal. - COMPOUNDED PRESCRIPTION Prostate supplement - Revive - OTC - Zinc (CHELATED ZINC) 50 mg tab Take 1 tablet by mouth once daily. - ascorbic acid (VITAMIN C) 500 mg tablet Take 1 tablet by mouth once daily. - multivitamins w-minerals/lut(CENTRUM SILVER TAB) Take one(1) tablet daily. - gluc samuels/chondro samuels a/vit c/mn(GLUCOSAMINE-CHONDROITIN MAX ST 500 MG-400 MG CAP) 2 tabs daily - NIACIN 500 MG TAB Take one(1) tablet daily at bedtime. 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/21/2018 Encounter for screening for diabetes mellitus [*10/12/2020 Medication management [Z79.899] 10/12/2020 Encounter for Medicare annual wellness exam [Z0*10/26/2020 Hiatal hernia [K44.9] 10/26/2020 Advance directive discussed with patient [Z71.8*01/25/2022 Anterolisthesis of lumbar spine [M43.16] 01/24/2023 Screening for colon cancer [Z12.11] 01/31/[address] [Z78.9] 01/31/2024 Arthritis [M19.90] 01/31/2024 High vitamin D level [E67.3] 02/03/2024 Belching [R14.2] 02/06/2024 Lead poisoning [T56.0X1A] 03/14/2024 Encounter Status:Closed by TOMMY FORBES on 03/14/24 Normal [facility] 25(OH)D3 SerPl-mCncon 2023 25-hydroxyvitamin D3 [Mass/Vol] 126.0 ng/mL High 31.0-80.0 [facility] Comment on above: Order Comment: Speci men Type: BLOOD SPECIMENOrdering Facility: [facility] Address: [address] [place] [address] Result Comment: Clas sification of 25 OH Vitamin D status: Deficiency/Insufficiency: < or = 30 ng/ml. Sufficiency/Optimal Levels: 31-80 ng/mL Toxicity: > 100 ng/mL. Test performed by chemiluminescent immunoassay. Performed By: #### 1 989-3 ####[facility] [id number] [place] [address] [place] Urinalysis complete panel (U )on 03-13-2024 Bacteria LM.HPF (Urine sed) [#/Area] Negative Normal Negative [facility] Comment on above: Order Comment: Speci men Type: URINE SPECIMENOrdering Facility: [facility] Address: [address] [place] [address] Performed By: #### 2 4356-8 ####[facility] [id number] [place] [address] [place] Bilirubin Ql (U) Negative Normal Negative [facility] Comment on above: Order Comment: Speci men Type: URINE SPECIMENOrdering Facility: [facility] Address: [address] [place] [address] Performed By: #### 2 4356-8 ####[facility] [id number] [place] [address] [place] Clarity (Unsp spec) Clear Normal Clear [facility] Comment on above: Order Comment: Speci men Type: URINE SPECIMENOrdering Facility: [facility] Address: [address] [place] [address] Performed By: #### 2 4356-8 ####[facility] [id number] [place] [address] [place] [facility] Color (U) Yellow Normal Yellow [facility] Comment on above: Order Comment: Speci men Type: URINE SPECIMENOrdering Facility: [facility] Address: [address] [place] [address] Performed By: #### 2 4356-8 ####[facility] [id number] [place] [address] [place] Epithelial cells LM.HPF (Urine sed) [#/Area] None Seen Normal [facility] Comment on above: Order Comment: Speci men Type: URINE SPECIMENOrdering Facility: [facility] Address: [address] [place] [address] Performed By: #### 2 4356-8 ####[facility] [id number] [place] [address] [place] Glucose Test strip (U) [Mass/Vol] Negative Normal Negative [facility] Comment on above: Order Comment: Speci men Type: URINE SPECIMENOrdering Facility: [facility] Address: [address] [place] [address] Performed By: #### 2 4356-8 ####[facility] [id number] [place] [address] [place] Hemoglobin Ql (U) Negative Normal Negative [facility] Comment on above: Order Comment: Speci men Type: URINE SPECIMENOrdering Facility: [facility] Address: [address] [place] [address] Performed By: #### 2 4356-8 ####[facility] [id number] [id number] [place] [address] [place] Hyaline casts (Urine sed) [#/Area] 0 /[LPF] Normal 0 /LPF [facility] Comment on above: Order Comment: Speci men Type: URINE SPECIMENOrdering Facility: [facility] Address: [address] [place] [address] Performed By: #### 2 4356-8 ####[facility] [id number] [place] [address] [place] Ketones Ql (U) Negative Normal Negative [facility] Comment on above: Order Comment: Speci men Type: URINE SPECIMENOrdering Facility: [facility] Address: [address] [place] [address] Performed By: #### 2 4356-8 ####[facility] [id number] [place] Leukocyte esterase Test strip Ql (U) Trace Abnormal Negative [facility] Comment on above: Order Comment: Speci men Type: URINE SPECIMENOrdering Facility: [facility] Address: [address] [place] [address] Performed By: #### 2 4356-8 ####[facility] [id number] [place] [address] [place] Nitrite Ql (U) Negative Normal Negative [facility] Comment on above: Order Comment: Speci men Type: URINE SPECIMENOrdering Facility: [facility] Address: [address] [place] [address] Performed By: #### 2 4356-8 ####[facility] [id number] [place] [address] [place] pH (U) 6.0 [pH] Normal <8.5 [facility] Comment on above: Order Comment: Speci men Type: URINE SPECIMENOrdering Facility: [facility] Address: [address] [place] [address] Performed By: #### 2 4356-8 ####[facility] [id number] [place] [address] [place] Protein (U) [Mass/Vol] Negative Normal Negative [facility] Comment on above: Order Comment: Speci men Type: URINE SPECIMENOrdering Facility: [facility] Address: [address] [place] [address] Performed By: #### 2 4356-8 ####[facility] [id number] [place] [address] [place] RBC LM.HPF (Urine sed) [#/Area] 0-2 /HPF Normal 0-2 /HPF [facility] Comment on above: Order Comment: Speci men Type: URINE SPECIMENOrdering Facility: [facility] Address: [address] [place] [address] Performed By: #### 2 4356-8 ####[facility] [id number] [place] [address] [place] Specific gravity (U) [Rel density] 1.019 Normal 1.005-1.030 [facility] Comment on above: Order Comment: Speci men Type: URINE SPECIMENOrdering Facility: [facility] Address: [address] [place] [address] Performed By: #### 2 4356-8 ####[facility] [id number] [place] [address] [place] Urobilinogen Ql (U) 1.0 EU/dL Normal 0.2-1.0 EU/dL [facility] Comment on above: Order Comment: Speci men Type: URINE SPECIMENOrdering Facility: [facility] Address: [address] [place] [address] Performed By: #### 2 4356-8 ####[facility] [id number] [place] [address] [place] WBC LM.HPF (Urine sed) [#/Area] 0-5 /HPF Normal 0-5 /HPF [facility] Comment on above: Order Comment: Speci men Type: URINE SPECIMENOrdering Facility: [facility] Address: [address] [place] [address] Performed By: #### 2 4356-8 ####[facility] [id number] VEE SANCHEZ [id number] [place], [place] [address] [place] [id number] 02-06-2024 [id number] HNO ID: [id number] Author: ARUNA DOUGHERTY RN Service: ? Author Type: Registered Nurse Type: [id number] Filed: 02/06/2024 13:51 Note Text: The patient received a copy of Colonoscopy and EGD discharge instructions that contain information for how to contact the physician who performed the procedure and when to seek medical care. Aruna Dougherty RN Normal [facility] Colonoscopyon 02-06-2024 Colonoscopy [facility] Patient Name: Arthur Diego Procedure Date: 02/06/2024 1:09 PM Date of : 1955 Admit Type: Outpatient Age: 68 Gender: Male Note Status: Finalized Procedure: Colonoscopy Indications: Screening for colorectal malignant neoplasm Providers: Jose Francisco Main MD Patient Profile: This is a 68 year old male. Refer to note in patient chart for documentation of history and physical. Last Colonoscopy: April 2013. Referring Physician: Ivonne Balderas (Referring ), Talha Fraga (Referring MD) Medicines: Fentanyl 50 micrograms IV, Midazolam 5 mg IV, Diphenhydramine 50 mg IV Complications: No immediate complications. Estimated blood loss: None. Requesting Provider: Procedure: Pre-Anesthesia Assessment: - Prior to the procedure, a History and Physical was performed, and patient medications and allergies were reviewed. The patient's tolerance of previous anesthesia was also reviewed. The risks and benefits of the procedure and the sedation options and risks were discussed with the patient. All questions were answered, and informed consent was obtained. Prior Anticoagulants: The patient has taken no anticoagulant or antiplatelet agents. ASA Grade Assessment: II - A patient with mild systemic disease. After reviewing the risks and benefits, the patient was deemed in satisfactory condition to undergo the procedure. After I obtained informed consent, the scope was passed under direct vision. Throughout the procedure, the patient's blood pressure, pulse, and oxygen saturations were monitored continuously. The Colonoscope was introduced through the anus with the intention of advancing to the cecum. The scope was advanced to the sigmoid colon before the procedure was aborted. Medications were given. The colonoscopy was extremely difficult due to poor endoscopic visualization. The patient tolerated the procedure well. The quality of the bowel preparation was unsatisfactory. No anatomical landmarks were photographed. Moderate Sedation: The administration of moderate sedation was initiated at 13:14 PM. Moderate (conscious) sedation was personally administered by the endoscopist. The following parameters were monitored: oxygen saturation, heart rate, blood pressure, respiratory rate, EKG, adequacy of pulmonary ventilation, and response to care. Total physician intraservice time was 16 minutes. Findings: The perianal and digital rectal examinations were normal. Multiple medium-mouthed and small-mouthed diverticula were found in the sigmoid colon. Extensive amounts of semi-liquid semi-solid solid stool was found in the entire colon, precluding visualization. The exam was otherwise without abnormality. Impression: - Preparation of the colon was unsatisfactory. Patient will need to have 2 days of clear liquids followed by his bowel prep. Would recommend drinking the bowel prep as fast as he can. His preparation today was entirely unsatisfactory and with the amount of diverticular disease try to advance the scope in the setting could outpatient psychiatrist to be a [place] adventure. - Diverticulosis in the sigmoid colon. - Stool in the entire examined colon. - The examination was otherwise normal. - No specimens collected. Recommendation: - Patient has a contact number available for emergencies. The signs and symptoms of potential delayed complications were discussed with the patient. Return to normal activities tomorrow. Written discharge instructions were provided to the patient. - Resume previous diet. - Continue present medications. - Repeat colonoscopy at appointment to be scheduled because the bowel preparation was poor. - Return to nurse practitioner at appointment to be scheduled. Procedure Code(s): --- Professional --- 60208, 53, Colonoscopy, flexible; diagnostic, including collection of specimen(s) by brushing or washing, when performed (separate procedure) G0500, Moderate sedation services provided by the same physician or other qualified health post acute care nurse performing a gastrointestinal endoscopic service that sedation supports, requiring the presence of an independent trained observer to assist in the monitoring of the patient's level of consciousness and physiological status; initial 15 minutes of intra-service time; patient age 5 years or older (additional time may be reported with [address]3027, as appropriate) Diagnosis Code(s): --- Professional --- Z12.11, Encounter for screening for malignant neoplasm of colon K57.30, Diverticulosis of large intestine without perforation or abscess without bleeding CPT copyright 2020 [employer]. All rights reserved. The codes documented in this report are preliminary and upon chief strategy officer review may be revised to meet current compliance requirements. Attending Participation: I personally performed the entir (more content not included)... Normal [facility] Colonoscopy Study observatio non 02-06-2024 [facility] Patient Name: Arthur Diego Procedure Date: 02/06/2024 1:09 PM Date of : 1955 Admit Type: Outpatient Age: 68 Gender: Male Note Status: Finalized Procedure: Colonoscopy Indications: Screening for colorectal malignant neoplasm Providers: Jose Francisco Main MD Patient Profile: This is a 68 year old male. Refer to note in patient chart for documentation of history and physical. Last Colonoscopy: April 2013. Referring Physician: Ivonne Balderas (Referring MD), Talha Fraga (Referring MD) Medicines: Fentanyl 50 micrograms IV, Midazolam 5 mg IV, Diphenhydramine 50 mg IV Complications: No immediate complications. Estimated blood loss: None. Requesting Provider: Procedure: Pre-Anesthesia Assessment: - Prior to the procedure, a History and Physical was performed, and patient medications and allergies were reviewed. The patient's tolerance of previous anesthesia was also reviewed. The risks and benefits of the procedure and the sedation options and risks were discussed with the patient. All questions were answered, and informed consent was obtained. Prior Anticoagulants: The patient has taken no anticoagulant or antiplatelet agents. ASA Grade Assessment: II - A patient with mild systemic disease. After reviewing the risks and benefits, the patient was deemed in satisfactory condition to undergo the procedure. After I obtained informed consent, the scope was passed under direct vision. Throughout the procedure, the patient's blood pressure, pulse, and oxygen saturations were monitored continuously. The Colonoscope was introduced through the anus with the intention of advancing to the cecum. The scope was advanced to the sigmoid colon before the procedure was aborted. Medications were given. The colonoscopy was extremely difficult due to poor endoscopic visualization. The patient tolerated the procedure well. The quality of the bowel preparation was unsatisfactory. No anatomical landmarks were photographed. Moderate Sedation: The administration of moderate sedation was initiated at 13:14 PM. Moderate (conscious) sedation was personally administered by the endoscopist. The following parameters were monitored: oxygen saturation, heart rate, blood pressure, respiratory rate, EKG, adequacy of pulmonary ventilation, and response to care. Total physician intraservice time was 16 minutes. Findings: The perianal and digital rectal examinations were normal. Multiple medium-mouthed and small-mouthed diverticula were found in the sigmoid colon. Extensive amounts of semi-liquid semi-solid solid stool was found in the entire colon, precluding visualization. The exam was otherwise without abnormality. Impression: - Preparation of the colon was unsatisfactory. Patient will need to have 2 days of clear liquids followed by his bowel prep. Would recommend drinking the bowel prep as fast as he can. His preparation today was entirely unsatisfactory and with the amount of diverticular disease try to advance the scope in the setting could outpatient psychiatrist to be a [place] adventure. - Diverticulosis in the sigmoid colon. - Stool in the entire examined colon. - The examination was otherwise normal. - No specimens collected. Recommendation: - Patient has a contact number available for emergencies. The signs and symptoms of potential delayed complications were discussed with the patient. Return to normal activities tomorrow. Written discharge instructions were provided to the patient. - Resume previous diet. - Continue present medications. - Repeat colonoscopy at appointment to be scheduled (more content not included)... [facility] EGD Study observation Eder antonio 02-06-2024 [facility] Gastrointestinal Endoscopy Patient Name: Arthur Diego Procedure Date: 02/06/2024 1:09 PM Date of : 1955 Admit Type: Outpatient Age: 68 Gender: Male Note Status: Finalized Procedure: Upper GI endoscopy Indications: Gastro-esophageal reflux disease, Eructation Providers: Jose Francisco Main MD Patient Profile: This is a 68 year old male. Refer to note in patient chart for documentation of history and physical. Referring Physician: Ivonne Balderas (Referring MD) Medicines: Fentanyl 50 micrograms IV, Midazolam 5 mg IV, Diphenhydramine 50 mg IV, Benzocaine spray Complications: No immediate complications. Estimated blood loss: Minimal. Requesting Provider: Procedure: Pre-Anesthesia Assessment: - Prior to the procedure, a History and Physical was performed, and patient medications and allergies were reviewed. The patient's tolerance of previous anesthesia was also reviewed. The risks and benefits of the procedure and the sedation options and risks were discussed with the patient. All questions were answered, and informed consent was obtained. Prior Anticoagulants: The patient has taken no anticoagulant or antiplatelet agents. ASA Grade Assessment: II - A patient with mild systemic disease. After reviewing the risks and benefits, the patient was deemed in satisfactory condition to undergo the procedure. After obtaining informed consent, the endoscope was passed under direct vision. Throughout the procedure, the patient's blood pressure, pulse, and oxygen saturations were monitored continuously. The Endoscope was introduced through the mouth, and advanced to the second part of duodenum. The upper GI endoscopy was accomplished without difficulty. The patient tolerated the procedure well. Moderate Sedation: The administration of moderate sedation was initiated at 13:14 PM. Moderate (conscious) sedation was personally administered by the endoscopist. The following parameters were monitored: oxygen saturation, heart rate, blood pressure, respiratory rate, EKG, adequacy of pulmonary ventilation, and response to care. Total physician intraservice time was 16 minutes. Findings: The Z-line was variable and was found 39 cm from the incisors. Biopsies were taken with a cold forceps for histology. The entire examined stomach was normal. Biopsies were taken with a cold forceps for Helicobacter pylori testing. The examined duodenum was normal. Biopsies for histology were taken with a cold forceps for evaluation of celiac disease. Impression: - Z-line variable, 39 cm from the incisors. Biopsied. - Normal stomach. Biopsied. - Normal examined duodenum. Biopsied. Recommendation: - Patient has a contact number available for emergencies. The signs and symptoms of potential delayed complications were discussed with the patient. Return to normal activities tomorrow. Written discharge instructions were provided to the patient. - Resume previous diet. - Continue present medications. - Await pathology results. - Repeat upper endoscopy in 5 years for surveillance. - Return to nurse practitioner at appointment to be scheduled. Procedure Code(s): --- Professional --- 96211, Esophagogastroduodenoscopy, flexible, transoral; with biopsy, single or multiple G0500, Moderate sedation services provided by the same physician or other qualified health post acute care nurse performing a gastrointestinal endoscopic service that sedation supports, requiring the presence of an independent trained observer to assist in the monitoring of the patient's level of consciousness and physiological status; initial 15 minutes of intra-service time; (more content not included)... [facility] HISTORY PHYSICALon HISTORY PHYSICAL HNO ID: [id number] Author: JOSE FRANCISCO MAIN MD Service: General Surgery Author Type: Physician Type: H&P Filed: 02/06/2024 12:29 Note Text: HISTORY AND PHYSICAL Arthur Diego : 1955 REFERRING PHYSICIAN: Talha Fraga [address] [facility] [address] CHIEF COMPLAINT: Patient presents with: Consult HPI: Arthur is a 68 year old male referred for endoscopy. Arthur notes due for screening colonoscopy. rAthur denies abdominal pain. Arthur denies diarrhea. Arthur denies constipation. Arthur denies a change in bowel habits. Arthur denies melena. Arthur denies bright red blood per rectum. Arthur denies hemorrhoids. Arthur notes heartburn. Well controlled with Prilosec 20mg daily +excessive belching after drinks or meals, even water. +hx of hiatal hernia after excessive coughing with walking pneumonia in 2015. Refers symptoms have just gotten much worse.- Thought EGD would have been done with last scope, no findings of that. Typically take NSAIDs, however is currently not taking. Arthur denies dysphagia. Arthur denies a history of ulcers/ peptic ulcer disease. Arthur denies family history of colon issues. Arthur's medical history is significant for HTN, GERD, gout AND arthritis. Arthur has undergone prior endoscopy. Last colonoscopy 04/2013 at [facility] with Dr. Flower. Sedation received: Midazolam 7 mg IV, Fentanyl 50 micrograms IV Impression: -Diverticulosis in the sigmoid colon and in the descending colon. - Internal hemorrhoids. CURRENT MEDICATIONS Current Outpatient Medications Medication Sig Cholecalciferol, Vitamin D3, 50 mcg (2,000 unit) cap Take 1 capsule by mouth once daily. allopurinol (ZYLOPRIM) 300 mg tablet Take 1 tablet by mouth once daily. lisinopril (ZESTRIL) 20 mg tablet Take 1 tablet by mouth once daily. meloxicam (MOBIC) 15 mg tablet Take 1 tablet by mouth once daily. Take with food. Omeprazole Magnesium (PRILOSEC OTC) 20 mg tablet Take 1 tablet by mouth daily before breakfast. 1/2 hr before meal. COMPOUNDED PRESCRIPTION Prostate supplement - Revive - OTC Zinc (CHELATED ZINC) 50 mg tab Take 1 tablet by mouth once daily. ascorbic acid (VITAMIN C) 500 mg tablet Take 1 tablet by mouth once daily. multivitamins w-minerals/lut(CENTRUM SILVER TAB) Take one(1) tablet daily. gluc samuels/chondro samuels a/vit c/mn(GLUCOSAMINE-CHONDROITIN MAX ST 500 MG-400 MG CAP) 2 tabs daily NIACIN 500 MG TAB Take one(1) tablet daily at bedtime. No current facility-administered medications for this visit. ALLERGIES: Ampicillin and Penicillins PAST MEDICAL HISTORY PAST MEDICAL HISTORY Diagnosis Date Advance directive discussed with patient 01/25/2022 Discussed 12/2021, declined packets Anterolisthesis of lumbar spine 01/24/2023 MRI: 11/06/2022: L5-S1 2-3 mm Arthritis 01/31/2024 On meloxicam BENIGN HYPERTENSION 05/28/2005 BPH with urinary obstruction 11/22/2014 Carpal tunnel syndrome, bilateral 11/22/2014 Cerebral cysts Degenerative disc disease, cervical 11/22/2014 Elevated prostate specific antigen (PSA) 11/22/2014 Encounter for Medicare annual wellness exam 10/26/2020 Medicare Part B: 08/27/2021 Last done: 01/24/2023 Gastroesophageal reflux disease 11/22/2014 Gout 10/29/2007 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 Hiatal hernia 10/26/2020 Mixed hyperlipidemia 12/06/2015 Spondylosis of lumbar region without myelopathy or radiculopathy 11/21/2018 Well adult exam 10/26/2020 Last done: 10/26/2020 PAST SURGICAL HISTORY PAST SURGICAL HISTORY Procedure Laterality Date CARPAL TUNNEL Left 12/18/2019 COLONOSCOPY FLX DX W/COLLJ SPEC WHEN PFRMD 05/15/13 Colonoscopy NEUROPLASTY AND/TRANSPOSITION ULNAR NERVE ELBOW Left 12/18/2019 FAMILY HISTORY FAMILY HISTORY Problem Relation Age of Onset Hypertension Mother other (dementia [Other]) Mother other (pancreatic cancer [Other]) Father other (ovarian cancer [Other]) Sister Chronic Kidney Disease Sister on dialysis None Brother SOCIAL HISTORY Social History Tobacco Use Smoking status: Never Smokeless tobacco: Never Vaping Use Vaping status: Never Used Substance Use Topics Alcohol use: Yes Comment: RARE Drug use: Never REVIEW OF SYMPTOMS: The review of systems data was entered by the nurse and reviewed by me Nursing Notes: Cyndi Seymour LPN 02/03/2024 1:23 PM Signed REVIEW OF SYSTEMS: General: The patient denies fatigue, denies weight loss, denies weight gain, denies feeling hot, and denies feelings of cold. Eyes: The patient denies glaucoma, denies eye injury/surgery, wears glasses or contacts. Ear/Nose/Throat: The patient denies allergies, denies hayfever, denies ear infections, and denies bloody noses. Cardiovascular: The patient denies chest pain, denies heart disease, denies high blood pressure,denies cardiac stent, denies prior heart attack, denies irregular heart beat, denies high cholesterol, denies poor circulation, denies heart failure, other cardia (more content not included)... Normal [facility] No Panel Informationon 02-05 Radiology Study observation (narrative) [facility] SURGICAL PATHOLOGYon 024 CASE REPORT Normal [facility] Comment on above: Order Comment: Speci men Type: TISSUE SPECIMEN Ordering Facility: [facility] Address: [address] [place] [address] Result Comment: Surg ica Pathology Report Case: [id number] Authorizing Provider: Jose Francisco Main MD Collected: 02/06/2024 01:22 PM Ordering Location: Ambulatory Surgery Received: 02/06/2024 01:52 PM Pathologist: Shukri Acosta MD Specimens: A) - Small Bowel, Duodenum, Biopsy B) - Stomach, Antrum, Biopsy, Antral for H/H C) - Esophagus, Distal, Biopsy D) - Esophagus, Mid, Biopsy Performed By: #### S #### [facility] CLIA [id number] [address] [place], [place] [address] [place] FINAL DIAGNOSIS Normal [facility] Comment on above: Order Comment: Speci men Type: TISSUE SPECIMEN Ordering Facility: [facility] Address: [address] [place] [address] Result Comment: A. S mall bowel, duodenum, biopsy: - Duodenal mucosa within normal limits. B. Stomach, antrum, biopsy: - Antral / corpus junctional mucosa with patchy chronic inactive gastritis. - No morphologic evidence of Helicobacter. C. Esophagus, distal, biopsy: - Squamous mucosa within normal limits. D. Esophagus, mid, biopsy: - Squamous mucosa within normal limits. Performed By: #### S #### [facility] CLIA [id number] [address] [place] [address] OF [place] FINAL PERFORMING LAB Normal [facility] Comment on above: Order Comment: Speci men Type: TISSUE SPECIMEN Ordering Facility: [facility] Address: [address] [place] [address] Result Comment: Diag nostic interpretation performed at [facility], [address] [place] [address] CLIA# [id number] Aitchbone Breaker: Juan Moura M.D. Performed By: #### S #### [facility] CLIA [id number] [address] [place] [address] GROSS DESCRIPTION Normal [facility] Comment on above: Order Comment: Speci men Type: TISSUE SPECIMEN Ordering Facility: [facility] Address: [address] [place] [address] Result Comment: A. S mall Bowel, Duodenum, Biopsy Received in formalin are two pieces of feliciano, soft tissue aggregating to 0.8 x 0.3 x 0.1 cm. Totally submitted in one cassette. B. Stomach, Antrum, Biopsy Received in formalin is one piece of feliciano, soft tissue measuring 0.8 x 0.2 x 0.1 cm. Totally submitted in one cassette. C. Esophagus, Distal, Biopsy Received in formalin are two pieces of feliciano-white, soft tissue aggregating to 1.0 x 0.3 x 0.1 cm. Totally submitted in one cassette. D. Esophagus, Mid, Biopsy Received in formalin is one piece of feliciano-white, soft tissue measuring 0.5 x 0.3 x 0.1 cm. Totally submitted in one cassette. Gross examination performed at [facility], [address] [place] [address] FFS 02/06/2024 10:15 PM Performed By: #### S #### [facility] CLIA [id number] [address] [place], [place] [id number] [place] Upper GI endoscopyon 10-10-2 024 Upper GI endoscopy [facility] Gastrointestinal Endoscopy Patient Name: Arthur Diego Procedure Date: 02/06/2024 1:09 PM Date of : 1955 Admit Type: Outpatient Age: 68 Gender: Male Note Status: Finalized Procedure: Upper GI endoscopy Indications: Gastro-esophageal reflux disease, Eructation Providers: Jose Francisco Main MD Patient Profile: This is a 68 year old male. Refer to note in patient chart for documentation of history and physical. Referring Physician: Ivonne Balderas (Referring MD) Medicines: Fentanyl 50 micrograms IV, Midazolam 5 mg IV, Diphenhydramine 50 mg IV, Benzocaine spray Complications: No immediate complications. Estimated blood loss: Minimal. Requesting Provider: Procedure: Pre-Anesthesia Assessment: - Prior to the procedure, a History and Physical was performed, and patient medications and allergies were reviewed. The patient's tolerance of previous anesthesia was also reviewed. The risks and benefits of the procedure and the sedation options and risks were discussed with the patient. All questions were answered, and informed consent was obtained. Prior Anticoagulants: The patient has taken no anticoagulant or antiplatelet agents. ASA Grade Assessment: II - A patient with mild systemic disease. After reviewing the risks and benefits, the patient was deemed in satisfactory condition to undergo the procedure. After obtaining informed consent, the endoscope was passed under direct vision. Throughout the procedure, the patient's blood pressure, pulse, and oxygen saturations were monitored continuously. The Endoscope was introduced through the mouth, and advanced to the second part of duodenum. The upper GI endoscopy was accomplished without difficulty. The patient tolerated the procedure well. Moderate Sedation: The administration of moderate sedation was initiated at 13:14 PM. Moderate (conscious) sedation was personally administered by the endoscopist. The following parameters were monitored: oxygen saturation, heart rate, blood pressure, respiratory rate, EKG, adequacy of pulmonary ventilation, and response to care. Total physician intraservice time was 16 minutes. Findings: The Z-line was variable and was found 39 cm from the incisors. Biopsies were taken with a cold forceps for histology. The entire examined stomach was normal. Biopsies were taken with a cold forceps for Helicobacter pylori testing. The examined duodenum was normal. Biopsies for histology were taken with a cold forceps for evaluation of celiac disease. Impression: - Z-line variable, 39 cm from the incisors. Biopsied. - Normal stomach. Biopsied. - Normal examined duodenum. Biopsied. Recommendation: - Patient has a contact number available for emergencies. The signs and symptoms of potential delayed complications were discussed with the patient. Return to normal activities tomorrow. Written discharge instructions were provided to the patient. - Resume previous diet. - Continue present medications. - Await pathology results. - Repeat upper endoscopy in 5 years for surveillance. - Return to nurse practitioner at appointment to be scheduled. Procedure Code(s): --- Professional --- 05697, Esophagogastroduodenoscopy, flexible, transoral; with biopsy, single or multiple G0500, Moderate sedation services provided by the same physician or other qualified health post acute care nurse performing a gastrointestinal endoscopic service that sedation supports, requiring the presence of an independent trained observer to assist in the monitoring of the patient's level of consciousness and physiological status; initial 15 minutes of intra-service time; patient age 5 years or older (additional time may be reported with 84656, as appropriate) Diagnosis Code(s): --- Professional --- K22.89, Other specified disease of esophagus K21.9, Gastro-esophageal reflux disease without esophagitis R14.2, Eructation CPT copyright 2020 [employer]. All rights reserved. The codes documented in this report are preliminary and upon chief strategy officer review may be revised to meet current compliance requirements. Attending Participation: I personally performed the entire procedure. Scope In: 1:19:35 PM Scope Out: 1:23:56 PM MD Jose Francisco Robin MD 02/06/2024 1:34:45 PM This report has been signed electronically by Jose Francisco Main MD Number of Addenda: 0 Note Initiated On: 02/06/2024 1:09 PM Estimated Blood Loss: Estimated blood loss was minimal. Normal [facility] CNOVon 02-03-2024 CNOV Office Visit (GENSWS ) ARTHUR DIEGO ([id number]) 1955 M Date Time Provider Department 02/03/24 1:30 PM IVONNE BALDERAS During your visit today, we recorded the following information about you: Temperature Pulse Respiration Blood pressure 97.3 degrees 76/minute 14/minute 142/90 Weight Height 93 kg 1.729 m LionCyndiJONATHAN 02/03/2024 1:23 PM Signed REVIEW OF SYSTEMS: General: The patient denies fatigue, denies weight loss, denies weight gain, denies feeling hot, and denies feelings of cold. Eyes: The patient denies glaucoma, denies eye injury/surgery, wears glasses or contacts. Ear/Nose/Throat: The patient denies allergies, denies hayfever, denies ear infections, and denies bloody noses. Cardiovascular: The patient denies chest pain, denies heart disease, denies high blood pressure,denies cardiac stent, denies prior heart attack, denies irregular heart beat, denies high cholesterol, denies poor circulation, denies heart failure, other cardiac issues, denies claudication, denies cold feet, denies peripheral arterial stent. Respiratory: The patient denies tuberculosis, denies pneumonia, denies frequent cough, denies pulmonary embolism, denies shortness of breath, and denies coughing up blood. Gastrointestinal: The patient denies difficulty swallowing, denies acid reflux, denies ulcers, denies vomiting, denies jaundice/hepatitis, denies gallbladder problems, denies black or tarry stools, denies hemorrhoids, denies bleeding from rectum, notes diverticulitis, denies constipation, denies diarrhea, denies loss of stool control, and notes hernias. Kidney/Bladder: The patient denies kidney stones, denies urine infections, and denies bloody urine. Skin: The patient denies a history of skin cancer, denies bleeding/changing moles, and denies a history of skin rash. Neurologic: The patient denies a history of epilepsy/convulsions, denies headaches, denies head/spinal injuries, and denies stroke/TIA. Psychiatric: The patient denies psychiatric medications, denies depression, and denies voices, denies substance abuse. Endocrine: The patient denies thyroid disorders, denies diabetes, and denies hormonal problems. Hematologic: The patient denies a history of bruising, denies bleeding, and denies anemia, denies blood clots. Infections: The patient denies a history of measles and mumps, denies rheumatic fever, and denies sexually transmitted diseases. Musculoskeletal: The patient denies back pain/injury, notes back problems, denies sciatica, denies knee/foot trouble, notes arthritis, or notes gout. When was patient's last Mammogram screening? N/A Last Colonoscopy: 05/15/2013 JONATHAN Araujo Kimberley, [employer] TEACHER 02/03/2024 1:42 PM Signed HISTORY AND PHYSICAL Arthur Diego : 1955 REFERRING PHYSICIAN: Talha Fraga [address] [place] [id number] CHIEF COMPLAINT: Patient presents with: Consult HPI: Arthur is a 68 year old male referred for endoscopy. Arthur notes due for screening colonoscopy. Arthur denies abdominal pain. Arthur denies diarrhea. Arthur denies constipation. Arthur denies a change in bowel habits. Arthur denies melena. Arthur denies bright red blood per rectum. Arthur denies hemorrhoids. Arthur notes heartburn. Well controlled with Prilosec 20mg daily +excessive belching after drinks or meals, even water. +hx of hiatal hernia after excessive coughing with walking pneumonia in 2015. Refers symptoms have just gotten much worse.- Thought EGD would have been done with last scope, no findings of that. Typically take NSAIDs, however is currently not taking. Arthur denies dysphagia. Arthur denies a history of ulcers/ peptic ulcer disease. Arthur denies family history of colon issues. Arthur's medical history is significant for HTN, GERD, gout AND arthritis. Arthur has undergone prior endoscopy. Last colonoscopy 04/2013 at [facility] with Dr. Flower. Sedation received: Midazolam 7 mg IV, Fentanyl 50 micrograms IV Impression: -Diverticulosis in the sigmoid colon and in the descending colon. - Internal hemorrhoids. Current Outpatient Medications Medication Sig Cholecalciferol, Vitamin D3, 50 mcg (2,000 unit) cap Take 1 capsule by mouth once daily. allopurinol (ZYLOPRIM) 300 mg tablet Take 1 tablet by mouth once daily. lisinopril (ZESTRIL) 20 mg tablet Take 1 tablet by mouth once daily. meloxicam (MOBIC) 15 mg tablet Take 1 tablet by mouth once daily. Take with food. Omeprazole Magnesium (PRILOSEC OTC) 20 mg tablet Take 1 tablet by mouth daily before breakfast. 1/2 hr before meal. COMPOUNDED PRESCRIPTION Prostate supplement - Revive - OTC Zinc (CHELATED ZINC) 50 mg tab Take 1 tablet by mouth once daily. ascorbic acid (VITAMIN C) 500 mg tablet Take 1 tablet by mouth once daily. multivitamins w-minerals/lut(CENTRUM SILVER TAB) T (more content not included)... Normal [facility] 02-03-2024 [facility]THUR DIEGO ([id number]) 1955 M Date Time Provider Department 02/03/24 TALHA FRAGA [facility] During your visit today, we recorded the following information about you: Talha Fraga MD 02/03/2024 11:28 AM Signed Let patient know his lead level is high. I have placed a referral to see occupational Med to help get this lower. His UA showed some blood. Want to repeat in a month. Order placed. His Vit D level is way to high at 144.8. this can lead to calcium issues. I would advise him to stop his vit D for a week the start 2,000 international unit(s) 's just once a day. We will recheck level in a month. Lipid panel ok. HDL is low and increased physical activity can help improve this. All his other labs and PSA were ok. Destiney Bhagat MA 02/03/2024 11:44 AM Signed Patient informed and verbalized understanding. Does not wish at this time to see Occ med. TEQUILA Miles Jeffrey A, MD 02/03/2024 12:25 PM Signed Please advise patient that lead toxicity can lead to memory and chronic physical issues. Talha Fraga MD 02/03/2024 12:25 PM Signed Addended by: TALHA FRAGA on: 02/03/2024 12:25 PM Modules accepted: Lulu Bond MA 02/03/2024 1:22 PM Signed Left message with patient's to contact the office. TEQUILA De La Rosa Laurie Lynn, LPN 02/03/2024 2:32 PM Signed Spoke with pt and information listed below given. Pt verbalizes understanding. Pt aware of your information. Does not wish to pursue at this time. Masha Johnson LPN Allergies As of Date: 02/03/2024 Noted Allergy Reaction AMPICILLIN 02/15/2005 4 - Hives PENICILLINS 02/15/2005 4 - Hives Date Reviewed: 02/03/2024 Reviewed by: Ivonne Balderas APRN.[employer]UC[employer] TEACHER - Fully Assessed Reason for Visit: Results [95] Primary Visit Diagnosis:Toxic effect of lead, undetermined intent, initial encounter [T56.0X4A] Other Visit Diagnoses:Microscopic hematuria [R31.29] High vitamin D level [E67.3] Order(s):URINALYSIS, WITH MICROSCOPIC [SQUAWMIC] Order #: [id number] FUTURE VITAMIN D 25 HYDROXY [SQVITD] Order #: [id number] FUTURE Cholecalciferol, Vitamin D3, 50 mcg (2,000 unit) capTake 1 capsule by mouth once daily.Disp: Rfl: Prescriptions as of 02/03/2024 - Cholecalciferol, Vitamin D3, 50 mcg (2,000 unit) cap Take 1 capsule by mouth once daily. - peg 3350-Electrolytes (GOLYTELY) 236-22.74-6.74 -5.86 gram suspension Take 4,000 mL by mouth one time only for 1 dose. Refer to printed prep instructions from your provider. - allopurinol (ZYLOPRIM) 300 mg tablet Take 1 tablet by mouth once daily. - lisinopril (ZESTRIL) 20 mg tablet Take 1 tablet by mouth once daily. - meloxicam (MOBIC) 15 mg tablet Take 1 tablet by mouth once daily. Take with food. - Omeprazole Magnesium (PRILOSEC OTC) 20 mg tablet Take 1 tablet by mouth daily before breakfast. 1/2 hr before meal. - COMPOUNDED PRESCRIPTION Prostate supplement - Revive - OTC - Zinc (CHELATED ZINC) 50 mg tab Take 1 tablet by mouth once daily. - ascorbic acid (VITAMIN C) 500 mg tablet Take 1 tablet by mouth once daily. - multivitamins w-minerals/lut(CENTRUM SILVER TAB) Take one(1) tablet daily. - gluc samuels/chondro samuels a/vit c/mn(GLUCOSAMINE-CHONDROITIN MAX ST 500 MG-400 MG CAP) 2 tabs daily - NIACIN 500 MG TAB Take one(1) tablet daily at bedtime. Medication notes this encounter CHOLECALCIFEROL (VITAMIN D3) 125 MCG (5,000 UNIT) CAPSULE >> Talha Fraga MD 02/03/2024 11:26 AM level over 144 Problem List As Of Date 02/03/2024 Noted Resolved Essential hypertension, benign [I10] 05/28/2005 Gout [M10.9] 10/29/2007 BPH with urinary obstruction [N40.1, N13.8] 11/22/2014 Carpal tunnel syndrome, bilateral [G56.03] 11/22/2014 Elevated prostate specific antigen (PSA) [R97.2*11/22/2014 Gastroesophageal reflux disease [K21.9] 11/22/2014 Degenerative disc disease, cervical [M50.30] 11/22/2014 Lead exposure [Z77.011] 05/30/2015 Mixed hyperlipidemia [E78.2] 12/06/2015 Spondylosis of lumbar region without myelopathy*11/21/2018 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/21/2018 Encounter for screening for diabetes mellitus [*10/12/2020 Medication management [Z79.899] 10/12/2020 Encounter for Medicare annual wellness exam [Z0*10/26/2020 Hiatal hernia [K44.9] 10/26/2020 Advance directive discussed with patient [Z71.8*01/25/2022 Anterolisthesis of lumbar spine [M43.16] 01/24/2023 Screening for colon cancer [Z12.11] 01/31/[address] [Z78.9] 01/31/2024 Arthritis [M19.90] 01/31/2024 High vitamin D level [E67.3] 02/03/2024 Prescriptions ordered this encounter Disp Refills Start End CHOLECALCIFEROL (VITAMIN D3) 50 MCG * 02/03/2024 Class: OTC Route: ORAL Sig: Take 1 capsule by mouth once daily. Medications Discontinued During This Encounter Prescriptions - Cholecalciferol, Vitamin D3, 5,000 unit cap (Disconti (more content not included)... Normal [facility] 25(OH)D3 SerPl-mCncon 2023 25-hydroxyvitamin D3 [Mass/Vol] 144.8 ng/mL High 31.0-80.0 [facility] Comment on above: Order Comment: Speci men Type: BLOOD SPECIMENOrdering Facility: [facility] Address: [address] [place] [address] Performed By: #### 1 [id number] ####[facility] [id number] [address] OF [facility] CNOVon 01-31-2024 CNOV Office Visit (FAMPWS ) ARTHUR DIEGO ([id number]) 1955 M Date Time Provider Department 01/31/24 8:00 AM TALHA FRAGA FAMPWS During your visit today, we recorded the following information about you: Pulse Respiration Blood pressure Weight 62/minute 16/minute 136/82 91.6 kg Height 1.734 m Talha Fraga MD 01/31/2024 10:16 AM Addendum Arthur Diego is a 68 year old male here for a Medicare wellness visit. Medicare Health Risk Assessment General Health Good Exercise: Minutes/Day 0 min Exercise: Days/Week 0 days Alcohol: Daily Use Monthly or less Alcohol: Drinks/Day 1 or 2 Alcohol: 6 or more drinks Never Feel off balance No Concerns: Teeth/Dentures No Concerns: Sexual function No Troubled by feelings None of the above Frequency: Eating healthy diet Several days ADLs requiring help None of the above Safety precautions in home/vehicle No Smoke, vape, chews tobacco No Difficulty hearing No Difficulty seeing No Current Providers Specialists: I have reviewed specialist-related care of the patient in the medical record. Current care team: Patient Care Team: Talha Fraga MD as PCP - General (Family Medicine) Optho Medical/Family history review Reviewed and updated problem list, medical/surgical/family/soci al history, medications, and allergies. Opioid use review Opioid Medications (last 90 days) No data to display Anxiety/Depression screening PHQ-2 Score: 0 (Lower risk for depression) Recommendation: no further intervention at this time Cognitive screening Cognitive screening reviewed and No further action needed (score 3-5). Functional Observation Was the patient's Timed Up AND Go test unsteady or >= 12 seconds? No Advance Care Planning Surrogate decision maker and/or advance care plan documented Measurements BP 142/94 (BP Site: Left Arm, BP Position: Sitting, BP Cuff Size: Regular Adult) Pulse 62 Resp 16 Ht 173.4 cm (5' 8.25) Wt 91.6 kg (202 lb) BMI 30.49 kg/m? Vision Screening: Follows with optometry/ophthalmology Assessment/Plan Medicare annual wellness visit, subsequent (Z00.00) - Counseled on healthy diet and regular exercise - Fall avoidance information provided - Personalized prevention plan provided See Below Chief Complaint Patient presents with: Medicare Wellness Exam HPI Arthur Diego is a 68 year old male who presents here today for Chronic Medical Conditions. and Medicare Annual Visit. Patient with Hx of HTN, Hyperlipidemia, GERD, Gout, BPH, elevated PSA, spondylosis lumbar region as well as those reviewed and addressed below and in ROS. Patient has been doing well. No new issues or concerns. Past medical history, appointments, medications, allergies reviewed. Previous Medical History PAST MEDICAL HISTORY Diagnosis Date Advance directive discussed with patient 01/25/2022 Discussed 12/2021, declined packets Anterolisthesis of lumbar spine 01/24/2023 MRI: 11/06/2022: L5-S1 2-3 mm BENIGN HYPERTENSION 05/28/2005 BPH with urinary obstruction 11/22/2014 Carpal tunnel syndrome, bilateral 11/22/2014 Cerebral cysts Degenerative disc disease, cervical 11/22/2014 Elevated prostate specific antigen (PSA) 11/22/2014 Encounter for Medicare annual wellness exam 10/26/2020 Medicare Part B: 08/27/2021 Last done: 01/24/2023 Gastroesophageal reflux disease 11/22/2014 Gout 10/29/2007 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 Hiatal hernia 10/26/2020 Mixed hyperlipidemia 12/06/2015 Spondylosis of lumbar region without myelopathy or radiculopathy 11/21/2018 Well adult exam 10/26/2020 Last done: 10/26/2020 Previous Surgical History PAST SURGICAL HISTORY Procedure Laterality Date CARPAL TUNNEL Left 12/18/2019 COLONOSCOPY FLX DX W/COLLJ SPEC WHEN PFRMD 05/15/13 Colonoscopy NEUROPLASTY AND/TRANSPOSITION ULNAR NERVE ELBOW Left 12/18/2019 Family History FAMILY HISTORY Problem Relation Age of Onset Hypertension Mother other (pancreatic cancer [Other]) Father other (ovarian cancer [Other]) Sister None Sister None Brother other (dementia [Other]) Mother Patient Allergies ALLERGIES Allergen Reactions Ampicillin Hives Penicillins Hives Current Medications Current Outpatient Medications on File Prior to Visit Medication Sig lisinopril (ZESTRIL) 20 mg tablet Take 1 tablet by mouth once daily. allopurinol (ZYLOPRIM) 300 mg tablet Take 1 tablet by mouth once daily. Omeprazole Magnesium (PRILOSEC OTC) 20 mg tablet Take 1 tablet by mouth daily before breakfast. 1/2 hr before meal. COMPOUNDED PRESCRIPTION Prostate supplement - Revive - OTC Zinc (CHELATED ZINC) 50 mg tab Take 1 tablet by mouth once daily. Cholecalciferol, Vitamin D3, 5,000 unit cap Take 1 capsule by mouth once daily. (Patient taking differently: Take 5,000 Units by mouth once daily. Take (2) tablets daily) ascorbic acid (VITAMIN C) 500 mg tab (more content not included)... Normal [facility] Comprehensive metabolic 2000 panelon 01-31-2024 Albumin [Mass/Vol] 4.6 g/dL Normal 3.9-4.9 [facility] Comment on above: Order Comment: Speci men Type: BLOOD SPECIMENOrdering Facility: [facility] Address: [facility] [place] [address] Performed By: #### 2 132-9, 36412-4 ####[facility] [id number] [place] [address] [place] ALP [Catalytic activity/Vol] 106 U/L Normal 38-113 [facility] Comment on above: Order Comment: Speci men Type: BLOOD SPECIMENOrdering Facility: [facility] Address: [address] [place] [address] Performed By: #### 2 132-9, 06909-2 ####[facility] [id number] [place] [address] [place] ALT [Catalytic activity/Vol] 39 U/L Normal 10-54 [facility] Comment on above: Order Comment: Speci men Type: BLOOD SPECIMENOrdering Facility: [facility] Address: [address] [place] [address] Performed By: #### 2 132-9, 00499-4 ####[facility] [id number] [place] [address] [place] Anion gap [Moles/Vol] 12 mmol/L Normal 8-15 [facility] Comment on above: Order Comment: Speci men Type: BLOOD SPECIMENOrdering Facility: [facility] Address: [address] [place] [address] Performed By: #### 2 132-9, 44637-5 ####[facility] [id number] [place] [address] [place] AST [Catalytic activity/Vol] 26 U/L Normal 14-40 [facility] Comment on above: Order Comment: Speci men Type: BLOOD SPECIMENOrdering Facility: [facility] Address: [address] [place] [address] Performed By: #### 2 132-9, 19572-8 ####[facility] [id number] [place] [address] [place] Bilirubin [Mass/Vol] 0.4 mg/dL Normal 0.2-1.3 [facility] Comment on above: Order Comment: Speci men Type: BLOOD SPECIMENOrdering Facility: [facility] Address: [address] [place] [address] Performed By: #### 2 132-9, 53945-6 ####[facility] [id number] [place] [address] [place] Calcium [Mass/Vol] 9.7 mg/dL Normal 8.5-10.2 [facility] Comment on above: Order Comment: Speci men Type: BLOOD SPECIMENOrdering Facility: [facility] Address: [address] [place] [address] Performed By: #### 2 132-9, 25387-3 ####[facility] [id number] [place] [address] [place] Chloride [Moles/Vol] 103 mmol/L Normal 98-107 [facility] Comment on above: Order Comment: Speci men Type: BLOOD SPECIMENOrdering Facility: [facility] Address: [address] [place] [address] Performed By: #### 2 132-9, 39723-2 ####[facility] [id number] [place] [address] [place] CO2 [Moles/Vol] 25 mmol/L Normal 22-30 [facility] Comment on above: Order Comment: Speci men Type: BLOOD SPECIMENOrdering Facility: [facility] Address: [address] [place] [address] Performed By: #### 2 132-9, 18597-3 ####[facility] [id number] [place] [address] [place] Creatinine [Mass/Vol] 0.85 mg/dL Normal 0.73-1.22 [facility] Comment on above: Order Comment: Speci men Type: BLOOD SPECIMENOrdering Facility: [facility] Address: [address] [place] [address] Performed By: #### 2 132-9, 65415-0 ####[facility] [id number] [place] [address] [place] Creatinine and Glomerular filtration rate.predicted panel (S/P/Bld) 95 mL/min/1.73m??? Normal >=60 [facility] Comment on above: Order Comment: Akiko johnson Type: BLOOD SPECIMENOrdering Facility: [facility] Address: [address] [place] [address] Result Comment: Amanda mated Glomerular Filtration Rate (eGFR) is calculated using the 2020 CKD-EPI creatinine equation. This equation utilizes serum creatinine, sex, and age as parameters. The creatinine assay has traceable calibration to isotope dilution-mass spectrometry. Refer to KDIGO guidelines for clinical interpretation. In patients with unstable renal function, e.g. those with acute kidney injury, the eGFR may not accurately reflect actual GFR. Performed By: #### 2 132-9, 14002-1 ####[facility] [id number] [place] [address] [place] Glucose [Mass/Vol] 98 mg/dL Normal 74-99 [facility] Comment on above: Order Comment: Akiko johnson Type: BLOOD SPECIMENOrdering Facility: [facility] Address: [address] [place] [address] Result Comment: The [place] Diabetes [employer] (ADA) provides guidance for cutoff values for fasting glucose and random glucose. The ADA defines fasting as no caloric intake for at least 8 hours. Fasting plasma glucose results between 100 to 125 mg/dL indicate increased risk for diabetes (prediabetes). Fasting plasma glucose results greater than or equal to 126 mg/dL meet the criteria for diagnosis of diabetes. In the absence of unequivocal hyperglycemia, results should be confirmed by repeat testing. In a patient with classic symptoms of hyperglycemia or hyperglycemic crisis, random plasma glucose results greater than or equal to 200 mg/dL meet the criteria for diagnosis of diabetes. Reference: Standards of Medical Care in Diabetes 2016, [place] [employer]. Diabetes Care. 2016.39(Suppl 1). Performed By: #### 2 132-9, ####[facility] [id number] [address] [address] [place] Potassium [Moles/Vol] 4.2 mmol/L Normal 3.7-5.1 [facility] Comment on above: Order Comment: Speci men Type: BLOOD SPECIMENOrdering Facility: [facility] Address: [address] [place] [address] Performed By: #### 2 132-9, ####[facility] [id number] [place] [address] [place] Protein [Mass/Vol] 6.8 g/dL Normal 6.3-8.0 [facility] Comment on above: Order Comment: Speci men Type: BLOOD SPECIMENOrdering Facility: [facility] Address: [address] [place] [address] Performed By: #### 2 1329, ####[facility] [id number] [place] [address] [place] Sodium [Moles/Vol] 140 mmol/L Normal 136-144 [facility] Comment on above: Order Comment: Speci men Type: BLOOD SPECIMENOrdering Facility: [facility] Address: [address] [place] [address] Performed By: #### 2 132-9, ####[facility] [id number] [place] [id number] [place] Urea nitrogen [Mass/Vol] 14 mg/dL Normal 9-24 [facility] Comment on above: Order Comment: Speci men Type: BLOOD SPECIMENOrdering Facility: [facility] Address: [address] [place] [address] Performed By: #### 2 132-9, ####[facility] [id number] [place] [id number] [place] Free PSA [Mass/Vol]on 2023 Free PSA/Total PSA [Mass fraction] 28 % Normal [facility] Comment on above: Order Comment: Speci men Type: BLOOD SPECIMENOrdering Facility: [facility] Address: [address] [place] [address] Result Comment: Tota l and free PSA test methodology used is the Electrochemiluminescence Immunoassay by [employer]. Total or free PSA values by differing methodologies cannot be interchanged. The below table lists the probability of finding prostate cancer upon needle biopsy, for men 50 years or older and total PSA concentrations from 4.0-10.0 ng/mL. Results should be interpreted within the broader clinical context. Free PSA(%) 50-59 years 60-69 years >69 years <11 49.2% 57.5% 64.5% 11-18 26.9% 33.9% 40.8% 19-25 18.3% 23.9% 29.7% >25 9.1% 12.2% 15.8% Performed By: #### L IP, 3084-1, 78707-8, 41940-3 ####[facility] [id number] [facility] [id number] [place] [address] [place] Prostate specific Ag [Mass/Vol] 3.01 ng/mL High <2.60 [facility] Comment on above: Order Comment: Speci men Type: BLOOD SPECIMENOrdering Facility: [facility] Address: [address] [place] [address] Result Comment: Tota l PSA test methodology used is the Electrochemiluminescence Immunoassay by [employer]. Total PSA values by differing methodologies cannot be interchanged. For an individual patient, the significance of a PSA level should be interpreted in a broad clinical context, including age, race, family history, digital rectal exam, prostate size, results of prior testing (prostate biopsy, free PSA, PCA3), and use of 5-alpha reductase inhibitors. Considering the high incidence of asymptomatic cancer in the general population that may not pose an ultimate risk to a patient, the decision to recommend urological evaluation or prostate biopsy should be individualized after consideration of all these factors. REFERENCE: Brody Foster M.D., M.P.H., Raf Ambrocio M.D., Ph.D., Indra Spence M.D., Cyndi Shah M.P.H., Ella Molina Sc.D. Effect of Verification Bias on Screening for Prostate Cancer by Measurement of Prostatic Specific Antigen. N Engl J Med 2003,349:335-42. Performed By: #### L IPNF, 3084-1, 09701-2, ####[facility] [id number] [address] [address] [place] LIPID PANEL, NONFASTINGon Cholesterol [Mass/Vol] 163 mg/dL Normal <200 [facility] Comment on above: Order Comment: Speci men Type: BLOOD SPECIMENOrdering Facility: [facility] Address: [address] [place] [address] Result Comment: <200 mg/dL, Desirable 200-239 mg/dL, Borderline high >239 mg/dL, High Performed By: #### L IPNF, 3084-1, 72816-5, ####[facility] [id number] [place] [address] [place] HDL CHOLESTEROL, NF 30 mg/dL Low >39 [facility] Comment on above: Order Comment: Speci men Type: BLOOD SPECIMENOrdering Facility: [facility] Address: [address] [place] [address] Result Comment: 40-5 9 mg/dL, Acceptable >59 mg/dL, High: Negative risk factor for coronary heart disease <40 mg/dL, Low: Positive risk factor for coronary heart disease Performed By: #### L IPNF, 3084-1, 05823-6, ####[facility] [id number] [place] [address] [place] LDL CHOLESTEROL, NF 104 mg/dL High <100 [facility] Comment on above: Order Comment: Speci men Type: BLOOD SPECIMENOrdering Facility: [facility] Address: [address] [place] [address] Result Comment: <100 mg/dL, Optimal 100-129 mg/dL, Near optimal/above optimal 130-159 mg/dL, Borderline high 160-189 mg/dL, High >189 mg/dL, Very high Secondary prevention optimal LDL Cholesterol levels are recommended to be < 70 mg/dL Performed By: #### L IPCARRIE, 3084-1, 62410-4, ####[facility] [id number] [place] [address] [place] LDL/HDL RATIO, NF 3.47 mg/dL High <2.54 [facility] Comment on above: Order Comment: Akiko men Type: BLOOD SPECIMENOrdering Facility: [facility] Address: [address] [place] [address] Result Comment: Refe rence: 1. National Cholesterol Education Program ATP III Guideline At-A-Glance Quick Desk Reference: National Heart, Lung, and Blood [place]. National Institutes of Health. 2001: NIH Publication No. 01-3305. 2. An International Atherosclerosis Society position paper: global recommendations for the management of dyslipidemia: executive summary, Atherosclerosis. 2014: 232(2):410-413. Performed By: #### L GARIMA, 4-1, 77327-9, ####[facility] [id number] [place] [address] [place] NON HDL CHOL, NF 133 mg/dL High <130 [facility] Comment on above: Order Comment: Akiko men Type: BLOOD SPECIMENOrdering Facility: [facility] Address: [address] [place] [address] Result Comment: <130 mg/dL, Optimal 130-159 mg/dL, Near optimal/above optimal 160-189 mg/dL, Borderline high 190-219 mg/dL, High >219 mg/dL, Very high Secondary prevention optimal non HDL Cholesterol levels are recommended to be <100 mg/dL Performed By: #### L IPNF, 3084-1, 79226-0, ####[facility] [id number] [place] [id number] [place] T CHOL/HDL RATIO NF 5.43 mg/dL High <5.10 [facility] Comment on above: Order Comment: Speci men Type: BLOOD SPECIMENOrdering Facility: [facility] Address: [address] [place] [address] Performed By: #### L IPNF, 3084-1, 17440-2, ####[facility] [id number] [place] [address] [place] TRIGLYCERIDES, NF 144 mg/dL Normal <150 [facility] Comment on above: Order Comment: Speci men Type: BLOOD SPECIMENOrdering Facility: [facility] Address: [address] [place] [address] Result Comment: <150 mg/dL, Normal 150-199 mg/dL, Borderline high 200-499 mg/dL, High >499 mg/dL, Very high Performed By: #### L IPNF, 3084-1, 80324-8, ####[facility] [id number] [place] [address] [place] VLDL CHOLESTEROL, NF 29 mg/dL Normal <30 [facility] Comment on above: Order Comment: Speci men Type: BLOOD SPECIMENOrdering Facility: [facility] Address: [address] [place] [address] Performed By: #### L IPNF, 3084-1, 38295-1, ####[facility] [id number] [place] [address] [place] Lead (Bld) [Mass/Vol]on Lead (BldV) [Mass/Vol] 17.0 ug/dL High <3.5 [facility] Comment on above: Order Comment: Speci men Type: VENOUS BLOOD SPECIMENOrdering Facility: [facility] Address: [address] [place] [address] Result Comment: The Centers for Disease Control and Prevention (CDC) recommends a blood lead reference value of less than 3.5 ???g/dL (Update of the Blood Lead Reference Value - [facility], 2020). The CDC's updated Recommended Actions Based on Blood Lead Level can be accessed at www.cdc.gov. Consult [facility] Department of Health and/or applicable regulatory agencies for specific guidance on testing follow up and patient management. This test was developed, and its performance characteristics determined by the [facility] Department of Pathology and Laboratory Medicine. It has not been cleared or approved by the FDA. The [facility] Department of Pathology and Laboratory Medicine is regulated under CLIA as qualified to perform high-complexity testing. This test is used for clinical purposes. It should not be regarded as investigational or for research. Performed By: #### 5 671-3 ####[facility] [id number] [place] [address] [place] Magnesium SerPl-mCncon 01-30 Magnesium [Mass/Vol] 1.8 mg/dL Normal 1.7-2.3 [facility] Comment on above: Order Comment: Speci men Type: BLOOD SPECIMENOrdering Facility: [facility] Address: [address] [place] [address] Performed By: #### L IP, 3084-1, 00993-6, 76637-4 ####[facility] [id number] [place] [address] [place] Urate SerPl-mCncon 4 Urate [Mass/Vol] 3.9 mg/dL Low 4.0-8.1 [facility] Comment on above: Order Comment: Speci men Type: BLOOD SPECIMENOrdering Facility: [facility] Address: [address] [place] [address] Performed By: #### L IPNF, 3084-1, 52537-1, 71387-5 ####[facility] [id number] [place] [address] [place] Urinalysis complete panel (U )on 01-31-2024 Bacteria LM.HPF (Urine sed) [#/Area] Negative Normal Negative [facility] Comment on above: Order Comment: Speci men Type: URINE SPECIMENOrdering Facility: [facility] Address: [address] [place] [address] Performed By: #### 2 4356-8 ####[facility] [id number] [place] [address] [place] Bilirubin Ql (U) Negative Normal Negative [facility] Comment on above: Order Comment: Speci men Type: URINE SPECIMENOrdering Facility: [facility] Address: [address] [place] [address] Performed By: #### 2 4356-8 ####[facility] [id number] [place] [address] [place] Clarity (Unsp spec) Clear Normal Clear [facility] Comment on above: Order Comment: Speci men Type: URINE SPECIMENOrdering Facility: [facility] Address: [address] [place] [address] Performed By: #### 2 4356-8 ####[facility] [id number] [place] [address] [place] Color (U) Yellow Normal Yellow [facility] Comment on above: Order Comment: Speci men Type: URINE SPECIMENOrdering Facility: [facility] Address: [address] [place] [address] Performed By: #### 2 4356-8 ####[facility] [id number] [place] [address] [place] Epithelial cells LM.HPF (Urine sed) [#/Area] None Seen Normal [facility] Comment on above: Order Comment: Speci men Type: URINE SPECIMENOrdering Facility: [facility] Address: [address] [place] [address] Performed By: #### 2 4356-8 ####[facility] [id number] [place] [address] [place] Glucose Test strip (U) [Mass/Vol] Negative Normal Negative [facility] Comment on above: Order Comment: Speci men Type: URINE SPECIMENOrdering Facility: [facility] Address: [address] [place] [address] Performed By: #### 2 4356-8 ####[facility] [id number] [place] [address] [place] Hemoglobin Ql (U) 1+ Abnormal Negative [facility] Comment on above: Order Comment: Speci men Type: URINE SPECIMENOrdering Facility: [facility] Address: [address] [place] [address] Performed By: #### 2 4356-8 ####[facility] [id number] [place] [address] [place] Hyaline casts (Urine sed) [#/Area] 0 /[LPF] Normal 0 /LPF [facility] Comment on above: Order Comment: Speci men Type: URINE SPECIMENOrdering Facility: [facility] Address: [address] [place] [address] Performed By: #### 2 4356-8 ####[facility] [id number] [place] [address] [place] Ketones Ql (U) Negative Normal Negative [facility] Comment on above: Order Comment: Speci men Type: URINE SPECIMENOrdering Facility: [facility] Address: [address] [place] [address] Performed By: #### 2 4356-8 ####[facility] [id number] [place] [address] [place] Leukocyte esterase Test strip Ql (U) Negative Normal Negative [facility] Comment on above: Order Comment: Speci men Type: URINE SPECIMENOrdering Facility: [facility] Address: [address] [place] [address] Performed By: #### 2 4356-8 ####[facility] [id number] [place] [address] [place] Nitrite Ql (U) Negative Normal Negative [facility] Comment on above: Order Comment: Speci men Type: URINE SPECIMENOrdering Facility: [facility] Address: [address] [place] [address] Performed By: #### 2 4356-8 ####[facility] [id number] [place] [address] [place] pH (U) 6.0 [pH] Normal <8.5 [facility] Comment on above: Order Comment: Speci men Type: URINE SPECIMENOrdering Facility: [facility] Address: [address] [place] [address] Performed By: #### 2 4356-8 ####[facility] [id number] [place] [address] [place] Protein (U) [Mass/Vol] Negative Normal Negative [facility] Comment on above: Order Comment: Speci men Type: URINE SPECIMENOrdering Facility: [facility] Address: [address] [place] [address] Performed By: #### 2 4356-8 ####[facility] [id number] [place] [address] [place] RBC LM.HPF (Urine sed) [#/Area] 3-5 /HPF Abnormal 0-2 /HPF [facility] Comment on above: Order Comment: Speci men Type: URINE SPECIMENOrdering Facility: [facility] Address: [address] [place] [address] Performed By: #### 2 4356-8 ####[facility] [id number] [place] [address] [place] Specific gravity (U) [Rel density] 1.020 Normal 1.005-1.030 [facility] Comment on above: Order Comment: Speci men Type: URINE SPECIMENOrdering Facility: [facility] Address: [address] [place] [address] Performed By: #### 2 4356-8 ####[facility] [id number] [place] [address] [place] Urobilinogen Ql (U) 0.2 EU/dL Normal 0.2-1.0 EU/dL [facility] Comment on above: Order Comment: Speci men Type: URINE SPECIMENOrdering Facility: [facility] Address: [address] [place] [address] Performed By: #### 2 4356-8 ####[facility] [id number] [place] [address] [place] WBC LM.HPF (Urine sed) [#/Area] 0-5 /HPF Normal 0-5 /HPF [facility] Comment on above: Order Comment: Speci men Type: URINE SPECIMENOrdering Facility: [facility] Address: [address] [place] [address] Performed By: #### 2 4356-8 ####[facility] [id number] [place] [address] [place] Vit B12 [facility] 01-30- 024 Cobalamin (Vitamin B12) [Mass/Vol] 927 pg/mL Normal 232-1245 [facility] Comment on above: Order Comment: Speci men Type: BLOOD SPECIMENOrdering Facility: [facility] Address: [address] [place] [address] Performed By: #### 2 132-9, 24549-4 ####[facility] [id number] [place] [address] [place] Comprehensive metabolic 2000 panelon 01-25-2023 Albumin [Mass/Vol] 4.8 g/dL 3.9 - 4.9 g/dL [facility] ALP [Catalytic activity/Vol] 86 U/L 38 - 113 U/L [facility] ALT [Catalytic activity/Vol] 37 U/L 10 - 54 U/L [facility] Anion gap [Moles/Vol] 13 mmol/L 9 - 18 mmol/L [facility] AST [Catalytic activity/Vol] 34 U/L 14 - 40 U/L [facility] Bilirubin [Mass/Vol] 0.5 mg/dL 0.2 - 1.3 mg/dL [facility] Calcium [Mass/Vol] 10.1 mg/dL 8.5 - 10. 2 mg/dL [facility] Chloride [Moles/Vol] 101 mmol/L 97 - 105 mmol/L [facility] CO2 [Moles/Vol] 26 mmol/L 22 - 30 mmol/L [facility] Creatinine [Mass/Vol] 0.88 mg/dL 0.73 - 1.22 mg/dL [facility] Estimated Glomerular Filtration Rate 95 mL/min/1.73m >=60 mL/min/1.73m [facility] Glucose [Mass/Vol] 86 mg/dL 74 - 99 mg/dL [facility] Potassium [Moles/Vol] 4.2 mmol/L 3.7 - 5.1 mmol/L [facility] Protein [Mass/Vol] 7.0 g/dL 6.3 - 8.0 g/dL [facility] Sodium [Moles/Vol] 140 mmol/L 136 - 144 mmol/L [facility] Urea nitrogen [Mass/Vol] 15 mg/dL 9 - 24 mg/dL [facility] LIPID PANEL, NONFASTINGon Cholesterol [Mass/Vol] 158 mg/dL <200 mg/dL [facility] HDL Cholesterol, Nonfasting 30 mg/dL Low >39 mg/dL [facility] LDL Cholesterol, Nonfasting 90 mg/dL <100 mg/dL [facility] LDL/HDL Ratio, Nonfasting 3.00 mg/dL High <2.54 mg/dL [facility] Non HDL Cholesterol, Nonfasting 128 mg/dL <130 mg/dL [facility] Total Chol/HDL Ratio, Nonfasting 5.27 mg/dL High <5.10 mg/dL [facility] Triglycerides, Nonfasting 189 mg/dL High <150 mg/dL [facility] VLDL Cholesterol, Nonfasting 38 mg/dL High <30 mg/dL [facility] MAGNESIUM BLDon 01-25-2023 Magnesium [Mass/Vol] 1.7 mg/dL 1.7 - 2.3 mg/dL [facility] URIC ACID BLOODon 01-25-2023 Urate [Mass/Vol] 3.7 mg/dL Low 4.0 - 8.1 mg/dL [facility] Urinalysis complete panel (U )on 01-25-2023 Bilirubin Ql (U) Negative Negative [facility] Clarity (Unsp spec) Clear Clear [facility] Color (U) Colorless Yellow [facility] Glucose Test strip (U) [Mass/Vol] Negative Trace, Negative [facility] Hemoglobin Ql (U) Negative Negative, Trace [facility] Ketones Ql (U) Negative Trace, Negative [facility] Leukocyte esterase Test strip Ql (U) Negative Negative, 25 Darwin/uL [facility] Nitrite Ql (U) Negative Negative [facility] pH (U) 6.5 [pH] 5.0 - 8.0 [facility] Protein (U) [Mass/Vol] Negative Trace, Negative [facility] RBC LM.HPF (Urine sed) [#/Area] 0-3 /HPF 0-3 /HPF [facility] Specific gravity (U) [Rel density] 1.009 1.005 - 1.030 [facility] Urobilinogen Ql (U) Negative Negative [facility] WBC LM.HPF (Urine sed) [#/Area] 0-5 /HPF 0-5 /HPF [facility] XR Lumbar spine 2 Viewson IMPRESSION: Lumbar s pine degenerative changes as described above. Hyperbaric Welder Diver: SELINA Transcribe Date/Time: Jan 25 2023 4:32P Dictated by : SHELLY BURDICK MD This examination was interpreted and the report reviewed and electronically signed by: SHELLY BURDICK MD on Jan 25 2023 4:34PM [facility] DIVISION OF RADIOLOGY * * *Final Report* * * DATE OF EXAM: Jan 24 2023 2:33PM WOX [id number] - XR LUMBAR 2V FLEX/EXT / PROCEDURE REASON: Anterolisthesis of lumbar spine * * * * Physician Interpretation * * * * EXAM TITLE: XR LUMBAR 2V FLEX/EXT EXAM DATE/TIME: 01/24/2023 2:33 PM COMPARISON: None. CLINICAL INDICATION/HISTORY: Anterolisthesis TECHNIQUE: Lateral extension and lateral flexion views of the lumbar spine are presented. FINDINGS: There are five [id number]-[id number] lumbar vertebrae. No fracture or subluxations are noted on the lateral projections. No change in alignment of the lumbar spine with lateral extension and lateral flexion. There appears be L3-4 mild disc space narrowing. There is mild to moderate osteophyte formation, with possible facet arthrosis. Multilevel kissing spine is demonstrated. DIVISION OF RADIOLOGY Provider, Basilia Carreon [facility] - 01/25/2023 * * *Final Report* * * DATE OF EXAM: Jan 24 2023 2:33PM WOX [id number] - XR LUMBAR 2V FLEX/EXT / PROCEDURE REASON: Anterolisthesis of lumbar spine * * * * Physician Interpretation * * * * EXAM TITLE: XR LUMBAR 2V FLEX/EXT EXAM DATE/TIME: 01/24/2023 2:33 PM COMPARISON: None. CLINICAL INDICATION/HISTORY: Anterolisthesis TECHNIQUE: Lateral extension and lateral flexion views of the lumbar spine are presented. FINDINGS: There are five xqk-gps-fuupbsq lumbar vertebrae. No fracture or subluxations are noted on the lateral projections. No change in alignment of the lumbar spine with lateral extension and lateral flexion. There appears be L3-4 mild disc space narrowing. There is mild to moderate osteophyte formation, with possible facet arthrosis. Multilevel kissing spine is demonstrated. IMPRESSION IMPRESSION: Lumbar spine degenerative changes as described above. Hyperbaric Welder Diver: SELINA Transcribe Date/Time: Jan 25 2023 4:32P Dictated by : SHELLY BURDICK MD This examination was interpreted and the report reviewed and electronically signed by: SHELLY BURDICK MD on Jan 25 2023 4:34PM EST [facility] XR Lumbar spine 2 ViewsOrder ed By: [facility] Provider on 01-25-2023 [facility] XR Lumbar spine 2 Viewson Radiology Study observation (narrative) [facility] CORONAVIRUS 19, DEMARIO SENDOUTo n 12-09-2019 COVID-19,DEMARIO Not Detected Normal Not Detected [facility] Comment on above: Result Comment: This test was developed and its performance characteristics determined by [employer]. This test has not been FDA cleared or approved. This test has been authorized by FDA under an Emergency Use Authorization (EUA). This test is only authorized for the duration of time the declaration that circumstances exist justifying the authorization of the emergency use of in vitro diagnostic tests for detection of SARS-CoV-2 virus and/or diagnosis of COVID-19 infection under section 564(b)(1) of the Act, 21 U.S.C. 360bbb-3(b)(1), unless the authorization is terminated or revoked sooner. When diagnostic testing is negative, the possibility of a false negative result should be considered in the context of a patient's recent exposures and the presence of clinical signs and symptoms consistent with COVID-19. An individual without symptoms of COVID-19 and who is not shedding SARS-CoV-2 virus would expect to have a negative (not detected) result in this assay. Performed By: #### L 3400.2408 #### [facility] (refer to report for specific site) refer to report for address and phone number 12 Lead EKGon 12-07-[address] [facility] [address] [place] [address] 12 Lead EKG 12/07/19 1426 MR#: [id number] Acct: [id number] Name: ARTHUR DIEGO Rep #: [id number] : [id number] From: Maikel Anaya MD Attending Dr: Nathaniel Garcia PA-C Status: REG CL I Ordering Dr: Nathaniel Garcia PA-C Date: 12/07/19 Location: LAB Sex: M C Admitted: Test Reason : PREOP Blood Pressure : / mmHG Vent. Rate : 064 BPM Atrial Rate : 064 BPM P-R Int : 160 ms QRS Dur : 078 ms QT Int : 426 ms P-R-T Axes : 055 005 016 degrees QTc Int : 439 ms Normal sinus rhythm Normal ECG Confirmed by MAIKEL ANAYA MD ([id number]), news video editor CARLOS BANGURA ([id number]) on 12/08/2019 10:48:52 AM Referred By: Nathaniel Garcia Confirmed By:MAIKEL ANAYA MD 12/08/19 1048 Date Maikel Anaya MD CC: KASI Garcia; Dr. Sam Estrada III, MD Signed Normal [facility] Basic Metabolic Profile (BMP )on 12-07-2019 Calcium [Mass/Vol] 9.0 mg/dL Normal 8.5-10.1 [facility] Comment on above: Performed By: #### L 500.2500 #### [facility] [address] [place], [address] Chloride [Moles/Vol] 106 mmol/L Normal 98-107 [facility] Comment on above: Performed By: #### L 500.2500 #### [facility] [address] [place], [address] CO2 [Moles/Vol] 27.0 mmol/L Normal 21.0-32.0 [facility] Comment on above: Performed By: #### L 500.2500 #### [facility] [address] [place], [address] Creatinine [Mass/Vol] 0.96 mg/dL Normal 0.70-1.30 [facility] Comment on above: Result Comment: The validity of the calculated GFR AND GFRAA in patients over 70 years has not been determined. Clinical correlation is essential. Performed By: #### L 500.2500 #### [facility] [address] [place], [address] EST GFR - AA 101 mL/min Normal >60 [facility] Comment on above: Result Comment: Afri can Anguillan GFR Calc Performed By: #### L 500.2500 #### [facility] [address] [place], [address] GAP 6 Normal 5-15 [facility] Comment on above: Performed By: #### L 500.2500 #### [facility] [address] [place], [address] GFR/1.73 sq M predicted among non-blacks MDRD (S/P/Bld) [Vol rate/Area] 84 mL/min/{1.73_m2} Normal >60 [facility] Comment on above: Result Comment: Non- GFR Calc Performed By: #### L 500.2500 #### [facility] [address] [place] [place], [address] Glucose [Mass/Vol] 90 mg/dL Normal 74-106 [facility] Comment on above: Result Comment: Rajni laboy note revised GLUCOSE reference range effective 2017. Performed By: #### L 500.2500 #### [facility] [address] [place], [address] Potassium [Moles/Vol] 3.5 mmol/L Normal 3.5-5.1 [facility] Comment on above: Performed By: #### L 500.2500 #### [facility] [address] [place], [address] Sodium [Moles/Vol] 139 mmol/L Normal 136-145 [facility] Comment on above: Performed By: #### L 500.2500 #### [facility] [address] [place], [address] Urea nitrogen [Mass/Vol] 17 mg/dL Normal 7-18 [facility] Comment on above: Performed By: #### L 500.2500 #### [facility] [address] [place], [address] Urea nitrogen [Mass/Vol] 17.6 RATIO Normal 10-20 [facility] Comment on above: Performed By: #### L 500.2500 #### [facility] [address] [place], [address] CBC-Complete Blood Cnt No Di ffon 12-07-2019 Erythrocyte distribution width (RBC) [Ratio] 13.4 % Normal 11.6-14.6 [facility] Comment on above: Performed By: #### L 100.0500 #### [facility] [address] [place], [address] Hematocrit (Bld) [Volume fraction] 46.1 % Normal 40-54 [facility] Comment on above: Performed By: #### L 100.0500 #### [facility] [address] [place], [address] Hemoglobin (Bld) [Mass/Vol] 15.1 g/dL Normal 13.0-16.5 [facility] Comment on above: Performed By: #### L 100.0500 #### [facility] [address] [place], [address] MCH (RBC) [Entitic mass] 29.9 pg Normal 27.0-32.0 [facility] Comment on above: Performed By: #### L 100.0500 #### [facility] [address] [place], [address] MCHC (RBC) [Mass/Vol] 32.8 g/dL Normal 32-36 [facility] Comment on above: Performed By: #### L 100.0500 #### [facility] [address] [place], [address] MCV (RBC) [Entitic vol] 91.3 fL Normal 80-94 [facility] Comment on above: Performed By: #### L 100.0500 #### [facility] [address] [place], [address] Platelet mean volume (Bld) [Entitic vol] 9.4 fL Normal 6.2-12.0 [facility] Comment on above: Performed By: #### L 100.0500 #### [facility] [address] [place], [address] Platelets (Bld) [#/Vol] 246 10*3/uL Normal 150-450 [facility] Comment on above: Performed By: #### L 100.0500 #### [facility] [address] [place], [address] RBC (Bld) [#/Vol] 5.05 M/mm3 Normal 4.6-6.2 [facility] Comment on above: Performed By: #### L 100.0500 #### [facility] [address] [place], [address] RDW SD 44.5 fl High 35.1-43.9 [facility] Comment on above: Performed By: #### L 100.0500 #### [facility] [address] [place], [address] WBC (Bld) [#/Vol] 8.1 10*3/uL Normal 4.4-11.0 [facility] Comment on above: Performed By: #### L 100.0500 #### [facility] [address] [place], [address] Vital Signs Date Time Vital Sign Value Performing Clinician Facility 05-14-2024 15:34-0500 Body mass index (BMI) [Ratio] 31.91 kg/m2 Talha Huerta APRN.[employer]CHO[employer] EDUCATION TEACHER Work Phone: [facility] 05-14-2024 15:34-0500 Body temperature 99.81 [degF] Talha Huerta APRN.H[employer] SPECIAL EDUCATION TEACHER Work Phone: [facility] 05-14-2024 15:34-0500 Body weight 95.4 kg Talha Huerta APRN.[employer] SPECIAL EDUCATION TEACHER Work Phone: [facility] 05-14-2024 15:34-0500 Diastolic blood pressure 98 mm[Hg] Talha Huerta APRN.H[employer]CHO[employer] SPECIAL EDUCATION TEACHER Work Phone: [facility] 05-14-2024 15:34-0500 Heart rate 102 /min Talha Huerta APRN.H[employer]CHO[employer] SPECIAL EDUCATION TEACHER Work Phone: [facility] 05-14-2024 15:34-0500 Respiratory rate 20 /min Talha Huerta APRN.H[employer] SCHO[employer] SPECIAL EDUCATION TEACHER Work Phone: [facility] 05-14-2024 15:34-0500 SaO2% (BldA) [Mass fraction] 98 % Talha Huerta BASE PLY HAND.H[employer]CHOOL SPECIAL EDUCATION TEACHER Work Phone: [facility] 05-14-2024 15:34-0500 Systolic blood pressure 157 mm[Hg] Talha Huerta [employer] HAND.[employer] EDUCATION TEACHER Work Phone: [facility] 02-06-2024 14:09-0400 Heart rate 66 /min Jose Francisco Main MD Work Phone: [facility] 02-06-2024 14:09-0400 Respiratory rate 16 /min Jose Francisco Main MD Work Phone: [facility] 02-06-2024 14:09-0400 SaO2% (BldA) [Mass fraction] 95 % Jose Francisco Main MD Work Phone: [facility] 02-06-2024 13:59-0400 Diastolic blood pressure 60 mm[Hg] Jose Francisco Main MD Work Phone: [facility] 02-06-2024 13:59-0400 Systolic blood pressure 117 mm[Hg] Jose Francisco Main MD Work Phone: [facility] 02-06-2024 12:28-0400 Body mass index (BMI) [Ratio] 31.11 kg/m2 Jose Francisco Main MD Work Phone: [facility] 02-06-2024 12:28-0400 Body temperature 97.2 [degF] Jose Francisco Main MD Work Phone: [facility] 02-06-2024 12:28-0400 Body weight 93 kg Jose Francisco Main MD Work Phone: [facility] 02-03-2024 13:17-0400 Body height 172.9 cm Ivonne Balderas [employer] EDUCATION TEACHER Work Phone: [facility] 02-03-2024 13:17-0400 Body mass index (BMI) [Ratio] 31.11 kg/m2 Ivonne Drew [employer] EDUCATION TEACHER Work Phone: [facility] 02-03-2024 13:17-0400 Body temperature 97.3 [degF] Ivonne Drew [employer] HAND.H[employer]CHO[employer] SPECIAL EDUCATION TEACHER Work Phone: [facility] 02-03-2024 13:17-0400 Body weight 92.99 kg Ivonne Drew [employer] SPECIAL EDUCATION TEACHER Work Phone: [facility] 02-03-2024 13:17-0400 Diastolic blood pressure 90 mm[Hg] Ivonne Drew [employer] HAND.H[employer]CHO[employer] SPECIAL EDUCATION TEACHER Work Phone: [facility] Comment on above: Cyndi notified of blood pressure- pat ient reports being nervous. 02-03-2024 13:17-0400 Heart rate 76 /min Ivonne Drew [employer].H[employer]CHO[employer] SPECIAL EDUCATION TEACHER Work Phone: [facility] 02-03-2024 13:17-0400 Respiratory rate 14 /min Ivonne Drew [employer] SPECIAL EDUCATION TEACHER Work Phone: [facility] 02-03-2024 13:17-0400 SaO2% (BldA) [Mass fraction] 99 % Ivonne Drew [employer].H[employer]CHO[employer] SPECIAL EDUCATION TEACHER Work Phone: [facility] 02-03-2024 13:17-0400 Systolic blood pressure 142 mm[Hg] Ivonne Drew [employer] HAND.H[employer]CHO[employer] EDUCATION TEACHER Work Phone: [facility] Comment on above: Cyndi notified of blood pressure- pat ient reports being nervous. 01-31-2024 08:32-0400 Diastolic blood pressure 82 mm[Hg] Talha Fraga MD Work Phone: [facility] 01-31-2024 08:32-0400 Systolic blood pressure 136 mm[Hg] Talha Fraga MD Work Phone: [facility] 01-31-2024 07:52-0400 Body height 173.4 cm Talha Fraga MD Work Phone: [facility] 01-31-2024 07:52-0400 Body mass index (BMI) [Ratio] 30.49 kg/m2 Talha Fraga MD Work Phone: [facility] 01-31-2024 07:52-0400 Body weight 91.63 kg Talha Fraga MD Work Phone: [facility] 01-31-2024 07:52-0400 Heart rate 62 /min Talha Fraga MD Work Phone: [facility] 01-31-2024 07:52-0400 Respiratory rate 16 /min Talha Fraga MD Work Phone: [facility] 01-24-2023 13:27-0400 Diastolic blood pressure 84 mm[Hg] Talha Fraga MD Work Phone: [facility] 01-24-2023 13:27-0400 Systolic blood pressure 122 mm[Hg] Talha Fraga MD Work Phone: [facility] 01-24-2023 13:09-0400 Body height 174 cm Talha Fraga MD Work Phone: [facility] 01-24-2023 13:09-0400 Body weight 92.08 kg Talha Fraga MD Work Phone: [facility] 01-24-2023 13:09-0400 Heart rate 64 /min Talha Fraga MD Work Phone: [facility] 01-24-2023 13:09-0400 Respiratory rate 16 /min Talha Fraga MD Work Phone: [facility] 01-25-2022 13:33-0400 Diastolic blood pressure 82 mm[Hg] Talha Fraga MD Work Phone: [facility] 01-25-2022 13:33-0400 Systolic blood pressure 128 mm[Hg] Talha Fraga MD Work Phone: [facility] 01-25-2022 13:04-0400 Body height 172.7 cm Talha Fraga MD Work Phone: [facility] 01-25-2022 13:04-0400 Body weight 91.63 kg Talha Fraga MD Work Phone: [facility] 01-25-2022 13:04-0400 Heart rate 72 /min Talha Fraga MD Work Phone: [facility] 01-25-2022 13:04-0400 Respiratory rate 16 /min Talha Fraga MD Work Phone: [facility] Encounters Encounter Date Encounter Type Care Provider Facility Start: 10-14-2024 End: 10-15-2024 Refill Talha Fraga MD Work Phone: [facility] [place] Comment on above: Refill Request Start: 09-25-2024 End: 09-28-2024 Follow-up encounter Tk Stiles MD Work Phone: [facility] [place] Start: 09-24-2024 End: 09-24-2024 ambulatory TK STILES Facility:[facility] Start: 07-31-2024 End: 08-03-2024 Refill Talha Fraga MD Work Phone: [facility] [place] Comment on above: Refill Request Start: 07-29-2024 End: 07-30-2024 Follow-up encounter Tk Stiles MD Work Phone: [facility] [place] Start: 07-27-2024 End: 07-27-2024 ambulatory TALHA FRAGA Facility:[facility] Start: 05-14-2024 End: 05-14-2024 ambulatory TALHA FRAGA Facility:[facility] Start: 05-14-2024 End: 05-14-2024 Office outpatient visit 25 minutes Talha Huerta APRN.CNP Work Phone: [place] [facility] Comment on above: Fever, unspecified f ever cause (Primary Dx); Influenza A Start: 04-16-2024 End: 04-23-2024 Telephone encounter Talha Fraga MD Work Phone: [facility] [place] Comment on above: Results Start: 04-16-2024 End: 04-16-2024 ambulatory TALHA FRAGA Facility:[facility] Start: 03-14-2024 End: 03-14-2024 Telephone encounter Talha Fraga MD Work Phone: [facility] [place] Comment on above: Results Start: 03-13-2024 End: 03-13-2024 ambulatory TALHA FRAGA Facility:[facility] Start: 02-06-2024 End: 02-06-2024 ambulatory TALHA FRAGA Facility:[facility] Start: 02-06-2024 End: 02-06-2024 Subsequent hospital visit by physician Jose Francisco Main MD Work Phone: Ambulatory Surgery Comment on above: Gastroesophageal ref lux disease, unspecified whether esophagitis present [K21.9] Start: 02-03-2024 End: 02-03-2024 Telephone encounter Talha Fraga MD Work Phone: [facility] [place] Comment on above: Results Start: 02-03-2024 End: 02-03-2024 ambulatory IVONNE BALDERAS Facility:[facility] Start: 02-03-2024 End: 02-03-2024 Patient encounter procedure Ivonne Balderas JUAN Work Phone: General Surgery Comment on above: Screening for colon cancer (Primary Dx); Gastroesophageal reflux disease, unspecified whether esophagitis present; Belching; Hiatal hernia Start: 01-31-2024 End: 01-31-2024 ambulatory TALHA FRAGA Facility:[facility] Start: 01-31-2024 End: 01-31-2024 Patient encounter procedure Talha Fraga MD Work Phone: [facility] [place] Comment on above: Encounter for Medica re annual wellness exam (Primary Dx); Essential hypertension, benign; Mixed hyperlipidemia; Gastroesophageal reflux disease without esophagitis; Chronic gout without tophus, unspecified cause, unspecified site; BPH with urinary obstruction; Elevated prostate specific antigen (PSA); Advance directive discussed with patient; Medication management; Screening for depression; Encounter for screening examination for other mental health and behavioral disorders; Screening for colon cancer; Body mass index (BMI) 30.0-30.9, adult; Arthritis; Lead exposure Start: 07-16-2023 Telephone encounter Talha Fraga MD Work Phone: [facility] [place] Start: 01-24-2023 End: 01-24-2023 Subsequent hospital visit by physician [facility] [place] Work Phone: Radiology Comment on above: Anterolisthesis of l umbar spine [M43.16] Start: 01-24-2023 End: 01-24-2023 Patient encounter procedure Talha Fraga MD Work Phone: [facility] [place] Comment on above: Encounter for Medica re annual wellness exam (Primary Dx); Essential hypertension, benign; Mixed hyperlipidemia; Gastroesophageal reflux disease without esophagitis; Chronic gout without tophus, unspecified cause, unspecified site; BPH with urinary obstruction; Elevated prostate specific antigen (PSA); Advance directive discussed with patient; Medication management; Anterolisthesis of lumbar spine Start: 10-04-2022 Telephone encounter Talha Fraga MD Work Phone: [facility] [place] Comment on above: Insurance Authorizat ion (Etodolac ) Start: 10-02-2022 ambulatory Talha ward MD Work Phone: [facility] [place] Comment on above: Other Anti -inflamma tory Drugs Start: 07-16-2022 Refill Talha ward MD Work Phone: [facility] [place] Comment on above: Refill Request Start: 01-25-2022 End: 01-25-2022 Patient encounter procedure Talha Fraga MD Work Phone: [facility] [place] Comment on above: Medicare annual well ness visit, initial (Primary Dx); Essential hypertension, benign; Mixed hyperlipidemia; Gastroesophageal reflux disease without esophagitis; Chronic gout without tophus, unspecified cause, unspecified site; Elevated prostate specific antigen (PSA); BPH with urinary obstruction; Advance directive discussed with patient Procedures Date Procedure Procedure Detail Performing Clinician Start: 05-14-2024 INFLUENZA A&B MOLECULAR (POC) [facility] Provid er Start: 02-06-2024 Colonoscopy flx dx w/collj spec when pfrmd Ivonne Balderas APRN.CNP Work Phone: Start: 02-06-2024 Esophagogastroduodenoscopy transoral diagnostic Ivonne Balderas APRN.CNP Work Phone: Start: 02-06-2024 Colonoscopy Jose Francisco Main MD Work Phone: Start: 01-31-2024 Adult depression screening assessment Talha Fraga MD Work Phone: Start: 01-31-2024 Lipid 1996 panel - Serum or Plasma Everett Fraga MD Work Phone: Start: 01-24-2023 Radex spine lumbosacral 2/3 views Sourav Fraga MD Work Phone: Start: 01-24-2023 Lipid 1996 panel - Serum or Plasma Everett Fraga MD Work Phone: Start: 05-15-2013 Colonoscopy Talha Fraga MD Work Phone: Plan of Treatment Date Care Activity Detail Author Start: 02-05-2034 Screening for malign ant neoplasm of colon [facility] Start: 09-24-2031 RSV Vaccine (1 - 1-d ose 75+ series) RSV Vaccine (1 - 1-dose 75+ series) [facility] Start: 10-26-2030 Urine microalbumin profile [facility] Start: 01-30-2029 Lipid panel Lipid Screening [facility] Start: 01-30-2029 Prostate specific antigen measurement Prostate Cancer Screening Discussion [facility] Start: 01-25-2028 Lipid panel Lipid Screening [facility] Start: 01-25-2028 Prostate specific antigen measurement Prostate Cancer Screening Discussion [facility] Start: 02-21-2027 Lipid 1996 panel - Serum or Plasma Lipid Screening [facility] Start: 02-21-2027 LIPID SCREEN LIPID SCREEN [facility] Start: 02-21-2027 PROSTATE CANCER SCREENING DISCUSSION PROSTATE CANCER SCREENING DISCUSSION [facility] Start: 01-30-2027 Diabetes Screening Diabetes Screenin [facility] Start: 01-24-2026 Diabetes Screening Diabetes Screenin [facility] Start: 10-19-2025 LIPID SCREEN LIPID SCREEN [facility] Start: 10-19-2025 PROSTATE CANCER SCREENING DISCUSSION PROSTATE CANCER SCREENING DISCUSSION [facility] Start: 02-21-2025 DIABETES SCREEN DIABETES SCREEN [facility] Start: 02-21-2025 Diabetes Screening Diabetes Screenin g [facility] Start: 02-02-2025 End: 02-02-2025 Patient encounter procedure [facility] [place] Comment on above: Medicare wellness Start: 01-30-2025 Annual PCP Team Process Stripper collin Disease Visit Annual PCP Team Chronic Disease Visit [facility] Start: 01-30-2025 Anxiety Screening Anxiety Screening [facility] Start: 01-30-2025 BP Controlled (<130/80) BP Controlle d (<130/80) [facility] Start: 01-30-2025 Depression Screening Depression Scre ening [facility] Start: 01-30-2025 Medicare Annual Wellness Visit Medicare Annual Wellness Visit [facility] Start: 01-30-2025 Pneumococcal Vaccine : 50+ (1 of 1 - PCV) Pneumococcal Vaccine: 50+ (1 of 1 - PCV) [facility] Comment on above: Postponed from 09/23 (Declined at this time) Start: 01-30-2025 Pneumococcal Vaccine : 65+ (1 of 1 - PCV) Pneumococcal Vaccine: 65+ (1 of 1 - PCV) [facility] Comment on above: Postponed from 09/23 (Declined at this time) Start: 01-30-2025 Shingrix Vaccine (1 of 2) Shingrix Vaccine (1 of 2) [facility] Comment on above: Postponed from 09/23 (Declined at this time) Start: 09-24-2024 End: 09-24-2024 ambulatory 09/24/2024 7:30 AM EDT Results Only [facility] [address] [place] [address] [facility] Start: 08-28-2024 End: 11-27-2024 25-hydroxyvitamin D3 [Mass/volume] in Serum or Plasma VITAMIN D 25 HYDROXY Lab Routine High vitamin D level Expected: 08/28/2024, Expires: 11/27/2024 [facility] Work Phone: Comment on above: Expected: 08/28/2024 , Expires: 11/27/2024 Start: 05-17-2024 End: 08-16-2024 25-hydroxyvitamin D3 [Mass/volume] in Serum or Plasma VITAMIN D 25 HYDROXY Lab Routine High vitamin D level Expected: 05/17/2024, Expires: 08/16/2024 [facility] Work Phone: Comment on above: Expected: 05/17/2024 , Expires: 08/16/2024 Start: 04-29-2024 Advance Directive Discussion Advance Directive Discussion [facility] Start: 04-15-2024 End: 04-15-2024 ambulatory 04/15/2024 8:15 AM EST Results Only [place] [facility] [address] [place] [address] [facility] Start: 04-13-2024 End: 07-13-2024 25-hydroxyvitamin D3 [Mass/volume] in Serum or Plasma VITAMIN D 25 HYDROXY Lab Routine High vitamin D level Expected: 04/13/2024, Expires: 07/13/2024 [facility] Work Phone: Comment on above: Expected: 04/13/2024 , Expires: 07/13/2024 Start: 03-05-2024 End: 06-04-2024 25-hydroxyvitamin D3 [Mass/volume] in Serum or Plasma VITAMIN D 25 HYDROXY Lab Routine High vitamin D level Expected: 03/05/2024, Expires: 06/04/2024 [facility] Comment on above: Expected: 03/05/2024 , Expires: 06/04/2024 Start: 03-05-2024 End: 06-04-2024 Urinalysis complete panel - Urine URINALYSIS, WITH MICROSCOPIC Lab Routine Microscopic hematuria Expected: 03/05/2024, Expires: 06/04/2024 [facility] Work Phone: Comment on above: Expected: 03/05/2024 , Expires: 06/04/2024 Start: 02-28-2024 Annual PCP Team Process Stripper collin Disease Visit Annual PCP Team Chronic Disease Visit [facility] Start: 02-14-2024 End: 02-14-2024 Patient encounter procedure 02/14/2024 11:00 AM EDT Office Visit General Surgery [address] [place] [address] Ivonne Balderas APRN.[employer] TEACHER [address] [place] [address] 02-05 colonoscopy follow up General Surgery Comment on above: 02-05 colonoscopy fo llow up Start: 02-06-2024 End: 02-06-2024 Patient encounter procedure 02/06/2024 2:45 PM EDT Appointment Ambulatory Surgery [address] [place] [address] Jose Francisco Main MD [address] [place] [address] Ambulatory Surgery Start: 02-03-2024 End: 02-03-2024 Patient encounter procedure 02/03/2024 1:30 PM EDT Office Visit General Surgery [address] [place] [address] Ivonne Balderas APRN.[employer] TE[employer]ER [address] [place] [address] Screening for colon cancer General Surgery Comment on above: Screening for colon cancer Start: 01-31-2024 End: 05-01-2024 25-hydroxyvitamin D3 [Mass/volume] in Serum or Plasma [facility] Comment on above: Expected: 01/31/2024 , Expires: 05/01/2024 Start: 01-31-2024 End: 05-01-2024 Cobalamin (Vitamin B12) [Mass/volume] in Serum or Plasma [facility] Work Phone: Comment on above: Expected: 01/31/2024 , Expires: 05/01/2024 Start: 01-31-2024 End: 05-01-2024 Comprehensive metabolic 2000 panel - Serum or Plasma [facility] Comment on above: Expected: 01/31/2024 , Expires: 05/01/2024 Start: 01-31-2024 End: 05-01-2024 Lead [Mass/volume] in Blood [facility] Comment on above: Expected: 01/31/2024 , Expires: 05/01/2024 Start: 01-31-2024 End: 05-01-2024 LIPID PANEL, NONFASTING [facility] Comment on above: Expected: 01/31/2024 , Expires: 05/01/2024 Start: 01-31-2024 End: 05-01-2024 Magnesium [Mass/volume] in Serum or Plasma [facility] Comment on above: Expected: 01/31/2024 , Expires: 05/01/2024 Start: 01-31-2024 End: 05-01-2024 Prostate Specific Ag Free [Mass/volume] in Serum or Plasma [facility] Comment on above: Expected: 01/31/2024 , Expires: 05/01/2024 Start: 01-31-2024 End: 05-01-2024 Urate [Mass/volume] in Serum or Plasma [facility] Comment on above: Expected: 01/31/2024 , Expires: 05/01/2024 Start: 01-31-2024 End: 05-01-2024 Urinalysis complete panel - Urine [facility] Comment on above: Expected: 01/31/2024 , Expires: 05/01/2024 Start: 01-29-2024 End: 01-29-2024 Patient encounter procedure 01/29/2024 8:00 AM EDT Office Visit [facility] [place] [address], [place] [address] Talha Fraga MD [address] [place], [place] [id number] Medicare Wellness [facility] [place] Comment on above: Medicare Wellness Start: 01-25-2024 Annual PCP Team Process Stripper collin Disease Visit Annual PCP Team Chronic Disease Visit [facility] Start: 12-29-2023 Covid-19 Vaccine ( season) Covid-19 Vaccine ( season) [facility] Start: 10-20-2023 DIABETES SCREEN DIABETES SCREEN [facility] Start: 05-15-2023 Colonoscopy COLONOSCOPY [facility] Start: 05-15-2023 COLORECTAL CANCER SCREENING COLORECTAL CANCER SCREENING [facility] Start: 05-15-2023 Screening for malign ant neoplasm of colon [facility] Start: 04-29-2023 Advance Directive Discussion Advance Directive Discussion [facility] Start: 04-29-2023 Depression Assessment Depression Ass essment [facility] Start: 01-25-2023 ANNUAL PCP TEAM VOIP NETWORK TECHNICIAN COLLIN DISEASE VISIT ANNUAL PCP TEAM CHRONIC DISEASE VISIT [facility] Start: 01-25-2023 BP CONTROLLED (<130/80) BP CONTROLLE D (<130/80) [facility] Start: 01-25-2023 COVID-19 VACCINE (2 - Booster for Magda series) COVID-19 VACCINE (2 - Booster for Magda series) [facility] Comment on above: Postponed from 12/15 (Declined at this time) Start: 01-25-2023 Pneumococcal Vaccine : 65+ (1 - PCV) Pneumococcal Vaccine: 65+ (1 - PCV) [facility] Comment on above: Postponed from 09/23 (Declined at this time) Start: 01-25-2023 PNEUMOCOCCAL: 65+ (1 - PCV) PNEUMOCOCCAL: 65+ (1 - PCV) [facility] Comment on above: Postponed from 09/23 (Declined at this time) Start: 01-25-2023 SHINGRIX VACCINE (1 of 2) SHINGRIX VACCINE (1 of 2) [facility] Comment on above: Postponed from 09/23 (Insurance Coverage) Start: 01-24-2023 End: 03-26-2023 Cobalamin (Vitamin B12) [Mass/volume] in Serum or Plasma [facility] Work Phone: Comment on above: Expected: 01/24/2023 , Expires: 03/26/2023 Start: 01-24-2023 End: 03-26-2023 Prostate Specific Ag Free [Mass/volume] in Serum or Plasma [facility] Work Phone: Comment on above: Expected: 01/24/2023 , Expires: 03/26/2023 Start: 12-28-2022 Covid-19 Vaccine () Covid-19 Vaccine () [facility] Start: 04-29-2022 ADVANCE DIRECTIVE DISCUSSION ADVANCE DIRECTIVE DISCUSSION [facility] Start: 04-29-2022 DEPRESSION ASSESSMENT DEPRESSION ASS ESSMENT [facility] Start: 01-25-2022 End: 03-27-2022 Comprehensive metabolic 2000 panel - Serum or Plasma COMP METABOLIC PANEL Lab Routine Essential hypertension, benign Mixed hyperlipidemia Expected: 01/25/2022, Expires: 03/27/2022 [facility] Work Phone: Comment on above: Expected: 01/25/2022 , Expires: 03/27/2022 Start: 01-25-2022 End: 03-27-2022 LIPID PANEL, NONFASTING LIPID PANEL, NONFASTING Lab Routine Essential hypertension, benign Mixed hyperlipidemia Expected: 01/25/2022, Expires: 03/27/2022 [facility] Work Phone: Comment on above: Expected: 01/25/2022 , Expires: 03/27/2022 Start: 01-25-2022 End: 03-27-2022 Prostate Specific Ag Free [Mass/volume] in Serum or Plasma PSA FREE Lab Routine Elevated prostate specific antigen (PSA) Expected: 01/25/2022, Expires: 03/27/2022 [facility] Work Phone: Comment on above: Expected: 01/25/2022 , Expires: 03/27/2022 Start: 01-25-2022 End: 03-27-2022 Urate [Mass/volume] in Serum or Plasma URIC ACID BLOOD Lab Routine Chronic gout without tophus, unspecified cause, unspecified site Expected: 01/25/2022, Expires: 03/27/2022 [facility] Work Phone: Comment on above: Expected: 01/25/2022 , Expires: 03/27/2022 Start: 01-25-2022 End: 03-27-2022 Urinalysis complete panel - Urine URINALYSIS, WITH MICROSCOPIC Lab Routine Essential hypertension, benign Mixed hyperlipidemia Expected: 01/25/2022, Expires: 03/27/2022 [facility] Work Phone: Comment on above: Expected: 01/25/2022 , Expires: 03/27/2022 Start: 2021 Pneumococcal Vaccine : 65+ (1 of 1 - PCV) Pneumococcal Vaccine: 65+ (1 of 1 - PCV) [facility] Start: 04-29-2021 DEPRESSION ASSESSMENT DEPRESSION ASS ESSMENT [facility] Start: 2016 RSV Vaccine (1 - 1-d ose 60+ series) RSV Vaccine (1 - 1-dose 60+ series) [facility] Start: 12-23-2012 FECAL OCCULT BLOOD FECAL OCCULT BLOO D [facility] Start: 12-23-2012 Screening for malign ant neoplasm of colon Fecal Occult Blood [facility] Start: 2006 Shingrix Vaccine (1 of 2) Shingrix Vaccine (1 of 2) [facility] Start: 2001 COLOGUARD (FIT-DNA) COLOGUARD (FIT-D NA) [facility] Start: [address] COLONOGRAPHY [facility] Start: 2001 Screening for malign ant neoplasm of colon [facility] Start: 2001 SIGMOIDOSCOPY SIGMOIDOSCOPY [facility] Start: 1974 Anxiety Screening Anxiety Screening [facility] Start: 1974 Depression Screening Depression Scre ening [facility] End: 02-02-2025 EGD DIAGNOSTIC EGD DIAGNOSTIC Endoscopy Routine Gastroesophageal reflux disease, unspecified whether esophagitis present Belching 1 Occurrences starting 02/03/2024 until 02/02/2025 [facility] Work Phone: Comment on above: 1 Occurrences starti ng 02/03/2024 until 02/02/2025 INFLUENZA A&B MOLECU LAR (POC) INFLUENZA A&B MOLECULAR (POC) Microbiology Routine Fever, unspecified fever cause Ordered: 05/14/2024 [facility] Work Phone: Comment on above: Ordered: 05/14/2024 End: 02-23-2024 Radex spine lumbosacral 2/3 views XR LUMBAR LIMITED 2V FLEX/EXT Radiology Routine Anterolisthesis of lumbar spine 1 Occurrences starting 01/24/2023 until 02/23/2024 [facility] Work Phone: Comment on above: 1 Occurrences starti ng 01/24/2023 until 02/23/2024 Radex spine lumbosac ral 2/3 views XR LUMBAR LIMITED 2V FLEX/EXT Radiology Routine Anterolisthesis of lumbar spine 01/24/2023 2:33 PM EDT [facility] Work Phone: End: 02-02-2025 Screening colonoscopy COLONOSCOPY SCREENING Endoscopy Routine Screening for colon cancer 1 Occurrences starting 02/03/2024 until 02/02/2025 [facility] Comment on above: 1 Occurrences starti ng 02/03/2024 until 02/02/2025 SURGICAL PATHOLOGY [facility] Work Phone: Comment on above: Release Upon Vimalin g for 1 Occurrences starting 02/06/2024, 1 completed [facility] Immunizations Immunization Date Immunization Notes Care Provider Radha reeves 10-26-2020 tetanus toxoid, redu claudette diphtheria toxoid, and acellular pertussis vaccine, adsorbed Talha Fraga MD Work Phone: [facility] 10-20-2020 COVID-19 vaccine (MAGDA) Talha Fraga MD Work Phone: [facility] Work Phone: 02-02-2013 influenza virus vaccine, unspecified formulation Talha Fraga MD Work Phone: [facility] 12-21-2011 tetanus toxoid, redu claudette diphtheria toxoid, and acellular pertussis vaccine, adsorbed Tahla Fraga MD Work Phone: [facility] 02-03-2011 influenza virus vaccine, unspecified formulation Talha Fraga MD Work Phone: [facility] 02-25-2010 influenza virus vaccine, unspecified formulation Talha Fraga MD Work Phone: [facility] Work Phone: 02-16-2005 influenza virus vaccine, whole virus Talha Fraga MD Work Phone: [facility] Work Phone: 03-29-2004 influenza virus vaccine, whole virus Talha Fraga MD Work Phone: [facility] Work Phone: 10-13-1982 diphtheria and tetan us toxoids, adsorbed for pediatric use Talha Fraga MD Work Phone: [facility] Work Phone: 08-14-1970 diphtheria and tetan us toxoids, adsorbed for pediatric use Talha Fraga MD Work Phone: [facility] Work Phone: Payers Date Payer Category Payer [facility] [employer] D[employer] SUPPLEMENT Member Subscriber Plan / Payer (Effective 2021-Present) Name: Arthur Diego Relation to Subscriber: Self Name: Arthur Diego Payer ID: [id number] (NAIC) Group ID: [id number] Type: Indemnity Address: [address] [place] [id number] 2021 Medicare [id number] 2021 Unknown [employer] [place] DICARE SUPPLEMENT [id number] 2021-Present [phone] [id number] [facility] [id number] 2021 Medicare [id number] 2021 Medicare [id number] Social History Date Type Detail Facility Start: 12-21-2011 Tobacco smoking status NHIS Never sm oked tobacco [facility] Start: 12-21-2011 Tobacco use and exposure Smoke less tobacco non-user [facility] Start: 01-25-2022 End: 05-14-2024 Alcohol intake Current drinker of alcohol (finding) [facility] Start: 01-24-2022 History SDOH Alcohol Frequency 2 [facility] Start: 01-24-2022 History SDOH Alcohol Std Drinks 1 [facility] Start: 01-24-2022 History SDOH Social Connections Phone 4 [facility] Start: 01-24-2022 History SDOH Social Connections Meetings 3 [facility] Start: 01-24-2022 History SDOH Physica l Activity DPW 5 [facility] Start: 10-20-2020 Education 17 [facility] Start: 1955 Sex Assigned At Not on file C [facility] Start: 01-15-2022 End: 01-25-2022 Exposure to SARS-CoV-2 (event) Not sure [facility] Start: 01-18-2023 End: 01-23-2024 History of Social function [facility] Start: 01-18-2023 End: 01-23-2024 [facility] [employer] [facility] Has the [employer] oil, or water company threatened to shut off services in your home in past 12Mo No [facility] Do you belong to any clubs or organizations such as alevism groups, unions, fraternal or athletic groups, or school groups? Yes [facility] Are you now , , , , never or living with a partner? [facility] How often to you hav e a drink containing alcohol? Monthly or less [facility] How many standard dr inks containing alcohol do you have on a typical day? 1 or 2 [facility] How often do you hav e 6 or more drinks on 1 occasion? Never [facility] How hard is it for y ou to pay for the very basics like food, housing, medical care, and heating Not hard at all [facility] Do you feel stress - tense, restless, nervous, or anxious, or unable to sleep at night because your mind is troubled all the time - these days [OSQ] Only a little [facility] (I/We) worried zachary er (my/our) food would run out before (I/we) got money to buy more. Never true [facility] Do you feel stress - tense, restless, nervous, or anxious, or unable to sleep at night because your mind is troubled all the time - these days [OSQ] Not at all [facility] Functional Status Date Assessment Result Facility 02-27-2018 Are you deaf, or do you have serious difficulty hearing No 02/27/2018 5:11 PM Sam Banks III, MD No [facility] 02-27-2018 Are you blind, or do you have serious difficulty seeing, even when wearing glasses No 02/27/2018 5:11 PM Sam Banks III, MD No [facility] 02-27-2018 Do you have serious difficulty walking or climbing stairs No 02/27/2018 5:11 PM EDT Sam Estrada III, MD No [facility] 02-27-2018 Do you have difficul ty dressing or bathing No 02/27/2018 5:11 PM EDT Sam Estrada III, MD No [facility] 02-27-2018 Because of a physica l, mental, or emotional condition, do you have difficulty doing errands alone such as visiting a physician's office or shopping No 02/27/2018 5:11 PM EDT Sam Estrada III, MD No [facility] Mental Status Date Assessment Result Facility 02-27-2018 Because of a physica l, mental, or emotional condition, do you have serious difficulty concentrating, remembering, or making decisions No 02/27/2018 5:11 PM EDT Sam Estrada III, MD No [facility] Clinical Notes 01-25-2022 to 10-15-2024 Telephone Encounter - Laila Greer LPN - 10/15/2024 1:15 PM EDTTelephone Encounter - Laila Greer LPN - 10/15/2024 1:15 PM EDTPTalha adan APRN.[employer] TEACHER - 05/14/2024 3:45 PM EST Note Date & Type Note Facility 10-15-2024 Telephone encounter Note Prescription Refill Information The patient has been identified by name and date of : Yes Caregiver verified no other encounters exist for this prescription request: Yes Caregiver confirmed with patient/requestor that no other refills are due, in the near future, with this provider at this time: Yes The last office visit in the department: 01/31/24 Does the patient have a future office visit with this provider/department: Yes Requested Prescriptions Pending Prescriptions Disp Refills allopurinol (ZYLOPRIM) 300 mg tablet 90 tablet 1 Sig: Take 1 tablet by mouth once daily. lisinopril (ZESTRIL) 20 mg tablet 90 tablet 1 Sig: Take 1 tablet by mouth once daily. Laila Greer LPN October 15, 2024 1:15 PM [facility] 10-15-2024 Miscellaneous Notes Prescription Refill Information The patient has been identified by name and date of : Yes Caregiver verified no other encounters exist for this prescription request: Yes Caregiver confirmed with patient/requestor that no other refills are due, in the near future, with this provider at this time: Yes The last office visit in the department: 01/31/24 Does the patient have a future office visit with this provider/department: Yes Requested Prescriptions Pending Prescriptions Disp Refills allopurinol (ZYLOPRIM) 300 mg tablet 90 tablet 1 Sig: Take 1 tablet by mouth once daily. lisinopril (ZESTRIL) 20 mg tablet 90 tablet 1 Sig: Take 1 tablet by mouth once daily. Laila Greer LPN October 15, 2024 1:15 PM documented in this encounter [facility] 09-28-2024 Telephone encounter Note Pt notified of results via Megathread. Ashlee Cruz Ma [facility] 09-28-2024 Telephone encounter Note ----- Message from Tk Stiles MD sent at 09/25/2024 7:12 AM EDT ----- Repeat vitamin D level is normal. May resume vitamin D supplement at 1,000 units per day. F/u with PCP for recheck. [facility] 09-28-2024 Miscellaneous Notes Pt notified of results via Megathread. Ashlee Cruz Ma ----- Message from Tk Stiles MD sent at 09/25/2024 7:12 AM EDT ----- Repeat vitamin D level is normal. May resume vitamin D supplement at 1,000 units per day. F/u with PCP for recheck. documented in this encounter [facility] 08-03-2024 Telephone encounter Note The following approved medication requests have been transmitted electronically. Requested Prescriptions Signed Prescriptions Disp Refills lisinopril (ZESTRIL) 20 mg tablet 90 tablet 1 Sig: Take 1 tablet by mouth once daily. Authorizing Provider: TALHA FRAGA MD [facility] 08-03-2024 Miscellaneous Notes The following approved medication requests have been transmitted electronically. Requested Prescriptions Signed Prescriptions Disp Refills lisinopril (ZESTRIL) 20 mg tablet 90 tablet 1 Sig: Take 1 tablet by mouth once daily. Authorizing Provider: TALHA FRAGA MD Prescription Refill Information The patient has been identified by name and date of : Yes Caregiver verified no other encounters exist for this prescription request: Yes Caregiver confirmed with patient/requestor that no other refills are due, in the near future, with this provider at this time: Yes The last office visit in the department: 01/2024 Does the patient have a future office visit with this provider/department: Yes Requested Prescriptions Pending Prescriptions Disp Refills lisinopril (ZESTRIL) 20 mg tablet 90 tablet 1 Sig: Take 1 tablet by mouth once daily. Lulu Mckeon MA August 03, 2024 9:27 AM documented in this encounter [facility] 08-03-2024 Telephone encounter Note Prescription Refill Information The patient has been identified by name and date of : Yes Caregiver verified no other encounters exist for this prescription request: Yes Caregiver confirmed with patient/requestor that no other refills are due, in the near future, with this provider at this time: Yes The last office visit in the department: 01/2024 Does the patient have a future office visit with this provider/department: Yes Requested Prescriptions Pending Prescriptions Disp Refills lisinopril (ZESTRIL) 20 mg tablet 90 tablet 1 Sig: Take 1 tablet by mouth once daily. Lulu Mckeon MA August 03, 2024 9:27 AM [facility] 07-30-2024 Telephone encounter Note Patient notified of results, verbalizes understanding of instructions. Amanda Obrien LPN [facility] 07-30-2024 Miscellaneous Notes Patient notified of results, verbalizes understanding of instructions. Amanda Obrien LPN ----- Message from Tk Stiles MD sent at 07/29/2024 1:06 PM EDT ----- Vitamin D level is still high, but improving. Continue to hold vitamin D supplements. Recheck in 1-2 months. documented in this encounter [facility] 07-30-2024 Telephone encounter Note ----- Message from Tk Stiles MD sent at 07/29/2024 1:06 PM EDT ----- Vitamin D level is still high, but improving. Continue to hold vitamin D supplements. Recheck in 1-2 months. [facility] 05-14-2024 Note HNO ID: [id number] Author: TALHA HUERTA APRN.[employer] TE[employer]ER Service: ? Author Type: Nurse Practitioner Type: Progress Notes Filed: 05/14/2024 16:00 Note Text: Subjective HPI Nontoxic-appearing male presents urgent care chief complaint flulike symptoms. Duration of symptom 1 day. Associated symptoms cough shortness of breath with coughing body aches chills fatigue sore throat headache. States symptoms were abrupt. Sick contact . OTC medications Mucinex Tylenol. Denies any chest pain hemoptysis pleuritic pain nausea vomiting abdominal pain change in bowel or bladder habits. Past medical history prescription medications allergies reviewed. .Patient presents with: Cough: Sob with intermittent low grade temp x 1 day PAST MEDICAL HISTORY Diagnosis Date Advance directive discussed with patient 01/25/2022 Discussed 12/2021, declined packets Anterolisthesis of lumbar spine 01/24/2023 MRI: 11/06/2022: L5-S1 2-3 mm Arthritis 01/31/2024 On meloxicam BENIGN HYPERTENSION 05/28/2005 BPH with urinary obstruction 11/22/2014 Carpal tunnel syndrome, bilateral 11/22/2014 Cerebral cysts Degenerative disc disease, cervical 11/22/2014 Elevated prostate specific antigen (PSA) 11/22/2014 Encounter for Medicare annual wellness exam 10/26/2020 Medicare Part B: 08/27/2021 Last done: 01/24/2023 Gastroesophageal reflux disease 11/22/2014 Gout 10/29/2007 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 Patient declined. Mixed hyperlipidemia 12/06/2015 Spondylosis of lumbar region without myelopathy or radiculopathy 11/21/2018 Well adult exam 10/26/2020 Last done: 10/26/2020 PAST SURGICAL HISTORY Procedure Laterality Date CARPAL TUNNEL Left 12/18/2019 COLONOSCOPY FLX DX W/COLLJ SPEC WHEN PFRMD 05/15/13 Colonoscopy NEUROPLASTY AND/TRANSPOSITION ULNAR NERVE ELBOW Left 12/18/2019 ALLERGIES Ampicillin and Penicillins MEDICATIONS Cholecalciferol, Vitamin D3, 50 mcg (2,000 unit) cap Take 1 capsule by mouth once daily. allopurinol (ZYLOPRIM) 300 mg tablet Take 1 tablet by mouth once daily. lisinopril (ZESTRIL) 20 mg tablet Take 1 tablet by mouth once daily. meloxicam (MOBIC) 15 mg tablet Take 1 tablet by mouth once daily. Take with food. Omeprazole Magnesium (PRILOSEC OTC) 20 mg tablet Take 1 tablet by mouth daily before breakfast. 1/2 hr before meal. COMPOUNDED PRESCRIPTION Prostate supplement - Revive - OTC Zinc (CHELATED ZINC) 50 mg tab Take 1 tablet by mouth once daily. ascorbic acid (VITAMIN C) 500 mg tablet Take 1 tablet by mouth once daily. multivitamins w-minerals/lut(CENTRUM SILVER TAB) Take one(1) tablet daily. gluc samuels/chondro samuels a/vit c/mn(GLUCOSAMINE-CHONDROITIN MAX ST 500 MG-400 MG CAP) 2 tabs daily NIACIN 500 MG TAB Take one(1) tablet daily at bedtime. FAMILY HISTORY Problem Relation Age of Onset Hypertension Mother other (dementia [Other]) Mother other (pancreatic cancer [Other]) Father other (ovarian cancer [Other]) Sister Chronic Kidney Disease Sister on dialysis None Brother Social History Tobacco Use Smoking status: Never Smokeless tobacco: Never Vaping Use Vaping status: Never Used Substance Use Topics Alcohol use: Yes Comment: RARE Drug use: Never BP 157/98 Pulse 102 Temp 37.7 ?C (99.8 ?F) (Right Tympanic) Resp 20 Wt 95.4 kg (210 lb 5.1 oz) SpO2 98% BMI 31.91 kg/m? Review of Systems Constitutional: Positive for chills, fever and malaise/fatigue. HENT: Positive for congestion and sore throat. Negative for ear discharge, ear pain and sinus pain. Eyes: Negative for blurred vision, pain, discharge and redness. Respiratory: Positive for cough. Negative for hemoptysis, sputum production, shortness of breath, wheezing and stridor. Cardiovascular: Negative for chest pain. Gastrointestinal: Negative for abdominal pain, diarrhea, nausea and vomiting. Musculoskeletal: Positive for myalgias. Skin: Negative for itching and rash. Neurological: Positive for headaches. Negative for dizziness. Objective Physical Exam Constitutional: General: He is not in acute distress. Appearance: He is not diaphoretic. HENT: Head: Normocephalic. Jaw: No trismus, tenderness, swelling or pain on movement. Nose: Congestion present. Mouth/Throat: Mouth: Mucous membranes are moist. Pharynx: Oropharynx is clear. Uvula midline. No pharyngeal swelling, oropharyngeal exudate, posterior oropharyngeal erythema or uvula swelling. Eyes: Conjunctiva/sclera: Conjunctivae normal. Pupils: Pupils are equal, round, and reactive to light. Cardiovascular: Rate and Rhythm: Normal rate and regular rhythm. Heart sounds: Normal heart sounds. Pulmonary: Effort: Pulmonary effort is normal. No tachypnea, accessory muscle usage or respiratory distress. Breath sounds: Normal breath sounds. No stridor. No wheezing, rhonc (more content not included)... [facility] 05-14-2024 History of Present illness Narrative Subjective HPI Nontoxic-appearing male presents urgent care chief complaint flulike symptoms. Duration of symptom 1 day. Associated symptoms cough shortness of breath with coughing body aches chills fatigue sore throat headache. States symptoms were abrupt. Sick contact . OTC medications Mucinex Tylenol. Denies any chest pain hemoptysis pleuritic pain nausea vomiting abdominal pain change in bowel or bladder habits. Past medical history prescription medications allergies reviewed. .Patient presents with: Cough: Sob with intermittent low grade temp x 1 day PAST MEDICAL HISTORY Diagnosis Date Advance directive discussed with patient 01/25/2022 Discussed 12/2021, declined packets Anterolisthesis of lumbar spine 01/24/2023 MRI: 11/06/2022: L5-S1 2-3 mm Arthritis 01/31/2024 On meloxicam BENIGN HYPERTENSION 05/28/2005 BPH with urinary obstruction 11/22/2014 Carpal tunnel syndrome, bilateral 11/22/2014 Cerebral cysts Degenerative disc disease, cervical 11/22/2014 Elevated prostate specific antigen (PSA) 11/22/2014 Encounter for Medicare annual wellness exam 10/26/2020 Medicare Part B: 08/27/2021 Last done: 01/24/2023 Gastroesophageal reflux disease 11/22/2014 Gout 10/29/2007 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 Patient declined. Mixed hyperlipidemia 12/06/2015 Spondylosis of lumbar region without myelopathy or radiculopathy 11/21/2018 Well adult exam 10/26/2020 Last done: 10/26/2020 PAST SURGICAL HISTORY Procedure Laterality Date CARPAL TUNNEL Left 12/18/2019 COLONOSCOPY FLX DX W/COLLJ SPEC WHEN PFRMD 05/15/13 Colonoscopy NEUROPLASTY &/TRANSPOSITION ULNAR NERVE ELBOW Left 12/18/2019 ALLERGIES Ampicillin and Penicillins MEDICATIONS Cholecalciferol, Vitamin D3, 50 mcg (2,000 unit) cap Take 1 capsule by mouth once daily. allopurinol (ZYLOPRIM) 300 mg tablet Take 1 tablet by mouth once daily. lisinopril (ZESTRIL) 20 mg tablet Take 1 tablet by mouth once daily. meloxicam (MOBIC) 15 mg tablet Take 1 tablet by mouth once daily. Take with food. Omeprazole Magnesium (PRILOSEC OTC) 20 mg tablet Take 1 tablet by mouth daily before breakfast. 1/2 hr before meal. COMPOUNDED PRESCRIPTION Prostate supplement - Revive - OTC Zinc (CHELATED ZINC) 50 mg tab Take 1 tablet by mouth once daily. ascorbic acid (VITAMIN C) 500 mg tablet Take 1 tablet by mouth once daily. multivitamins w-minerals/lut(CENTRUM SILVER TAB) Take one(1) tablet daily. gluc samuels/chondro samuels a/vit c/mn(GLUCOSAMINE-CHONDROITIN MAX ST 500 MG-400 MG CAP) 2 tabs daily NIACIN 500 MG TAB Take one(1) tablet daily at bedtime. FAMILY HISTORY Problem Relation Age of Onset Hypertension Mother other (dementia [Other]) Mother other (pancreatic cancer [Other]) Father other (ovarian cancer [Other]) Sister Chronic Kidney Disease Sister on dialysis None Brother Social History Tobacco Use Smoking status: Never Smokeless tobacco: Never Vaping Use Vaping status: Never Used Substance Use Topics Alcohol use: Yes Comment: RARE Drug use: Never BP 157/98 Pulse 102 Temp 37.7 C (99.8 F) (Right Tympanic) Resp 20 Wt 95.4 kg (210 lb 5.1 oz) SpO2 98% BMI 31.91 kg/m Review of Systems Constitutional: Positive for chills, fever and malaise/fatigue. HENT: Positive for congestion and sore throat. Negative for ear discharge, ear pain and sinus pain. Eyes: Negative for blurred vision, pain, discharge and redness. Respiratory: Positive for cough. Negative for hemoptysis, sputum production, shortness of breath, wheezing and stridor. Cardiovascular: Negative for chest pain. Gastrointestinal: Negative for abdominal pain, diarrhea, nausea and vomiting. Musculoskeletal: Positive for myalgias. Skin: Negative for itching and rash. Neurological: Positive for headaches. Negative for dizziness. Objective Physical Exam Constitutional: General: He is not in acute distress. Appearance: He is not diaphoretic. HENT: Head: Normocephalic. Jaw: No trismus, tenderness, swelling or pain on movement. Nose: Congestion present. Mouth/Throat: Mouth: Mucous membranes are moist. Pharynx: Oropharynx is clear. Uvula midline. No pharyngeal swelling, oropharyngeal exudate, posterior oropharyngeal erythema or uvula swelling. Eyes: Conjunctiva/sclera: Conjunctivae normal. Pupils: Pupils are equal, round, and reactive to light. Cardiovascular: Rate and Rhythm: Normal rate and regular rhythm. Heart sounds: Normal heart sounds. Pulmonary: Effort: Pulmonary effort is normal. No tachypnea, accessory muscle usage or respiratory distress. Breath sounds: Normal breath sounds. No stridor. No wheezing, rhonchi or rales. Musculoskeletal: Cervical back: Normal range of motion and neck supple. No edema, erythema, rigidity or tenderness. No pain with movement. Normal range of motion. Lymphadenopathy: Cervical: No cervical adenopathy. Skin: General: Skin is warm and dry. Neurological: Mental Status: He is alert and oriented to person, place, and time. ASSESSMENT/PLAN: 1. Fever, unspecified fever cause - ICD9: 780.60, ICD10: R50.9 (primary diagnosis) - INFLUENZA A&B MOLECULAR (POC) 2. Influenza A - ICD9: 487.1, ICD10: J10.1 Influenza A positive. Tamiflu risk and benefits discussed. Placed on Tamiflu. GFR 95 creatinine 0.January. Patient was educated on supportive therapies. Patient will follow up with primary care provider as needed. Patient was instructed to immediately proceed to emergency room for any new, worsening, or symptoms lasting longer than anticipated. The patient's clinical presentation is otherwise unremarkable at this time. Based on exam and clinical finding, the patient is stable for discharge. Plan of care was discussed with patient. Patient verbalizes understanding and agrees to plan of care. This note was generated using [employer] software. It may contain errors in wording, punctuation, or spelling. Talha Huerta APRN.[employer] SPECIAL EDUCATION TEACHER documented in this encounter [facility] 04-23-2024 Telephone encounter Note Patient notified of results and provider's instructions. Patient verbalizes understanding. Laila Greer LPN [facility] 04-23-2024 Miscellaneous Notes Patient notified of results and provider's instructions. Patient verbalizes understanding. Laila Greer LPN Message left for pt to call back for results. Ashlee Cruz MA Left message for patient to contact office. .Lulu Mckeon MA Let patient know his Vit is improved at 99.3 compared to 126 last month. Advise to cont to avoid any supplemental Vit D and will repeat in a month. Order placed. documented in this encounter [facility] 04-20-2024 Telephone encounter Note Message left for pt to call back for results. Ashlee Cruz MA [facility] 04-17-2024 Telephone encounter Note Left message for patient to contact office. .Lulu Mckeon MA [facility] 04-16-2024 Telephone encounter Note Let patient know his Vit is improved at 99.3 compared to 126 last month. Advise to cont to avoid any supplemental Vit D and will repeat in a month. Order placed. [facility] 03-14-2024 Telephone encounter Note Telephone call placed to patient. Made aware of results and recommendations. Voices understanding. Tommy Forbes LPN [facility] 03-14-2024 Miscellaneous Notes Telephone call placed to patient. Made aware of results and recommendations. Voices understanding. Tommy Forbes LPN Let patient know his UA is ok. His Vit D is still way to high. Advise him to stop any supplemental Vit D he is taking. Order placed to repeat in a month. documented in this encounter [facility] 03-14-2024 Telephone encounter Note Let patient know his UA is ok. His Vit D is still way to high. Advise him to stop any supplemental Vit D he is taking. Order placed to repeat in a month. [facility] 02-06-2024 History and physical note HISTORY AND PHYSICAL Arthur Diego : 1955 REFERRING PHYSICIAN: Talha Fraga [address] [facility] [address] CHIEF COMPLAINT: Patient presents with: Consult HPI: Arthur is a 68 year old male referred for endoscopy. Arthur notes due for screening colonoscopy. Arthur denies abdominal pain. Arthur denies diarrhea. Arthur denies constipation. Arthur denies a change in bowel habits. Arthur denies melena. Arthur denies bright red blood per rectum. Arthur denies hemorrhoids. Arthur notes heartburn. Well controlled with Prilosec 20mg daily +excessive belching after drinks or meals, even water. +hx of hiatal hernia after excessive coughing with walking pneumonia in 2015. Refers symptoms have just gotten much worse.- Thought EGD would have been done with last scope, no findings of that. Typically take NSAIDs, however is currently not taking. Arthur denies dysphagia. Arthur denies a history of ulcers/ peptic ulcer disease. Arthur denies family history of colon issues. Arthur's medical history is significant for HTN, GERD, gout & arthritis. Arthur has undergone prior endoscopy. Last colonoscopy 04/2013 at [facility] with Dr. Flower. Sedation received: Midazolam 7 mg IV, Fentanyl 50 micrograms IV Impression: -Diverticulosis in the sigmoid colon and in the descending colon. - Internal hemorrhoids. CURRENT MEDICATIONS Current Outpatient Medications Medication Sig Cholecalciferol, Vitamin D3, 50 mcg (2,000 unit) cap Take 1 capsule by mouth once daily. allopurinol (ZYLOPRIM) 300 mg tablet Take 1 tablet by mouth once daily. lisinopril (ZESTRIL) 20 mg tablet Take 1 tablet by mouth once daily. meloxicam (MOBIC) 15 mg tablet Take 1 tablet by mouth once daily. Take with food. Omeprazole Magnesium (PRILOSEC OTC) 20 mg tablet Take 1 tablet by mouth daily before breakfast. 1/2 hr before meal. COMPOUNDED PRESCRIPTION Prostate supplement - Revive - OTC Zinc (CHELATED ZINC) 50 mg tab Take 1 tablet by mouth once daily. ascorbic acid (VITAMIN C) 500 mg tablet Take 1 tablet by mouth once daily. multivitamins w-minerals/lut(CENTRUM SILVER TAB) Take one(1) tablet daily. gluc samuels/chondro samuels a/vit c/mn(GLUCOSAMINE-CHONDROITIN MAX ST 500 MG-400 MG CAP) 2 tabs daily NIACIN 500 MG TAB Take one(1) tablet daily at bedtime. No current facility-administered medications for this visit. ALLERGIES: Ampicillin and Penicillins PAST MEDICAL HISTORY PAST MEDICAL HISTORY Diagnosis Date Advance directive discussed with patient 01/25/2022 Discussed 12/2021, declined packets Anterolisthesis of lumbar spine 01/24/2023 MRI: 11/06/2022: L5-S1 2-3 mm Arthritis 01/31/2024 On meloxicam BENIGN HYPERTENSION 05/28/2005 BPH with urinary obstruction 11/22/2014 Carpal tunnel syndrome, bilateral 11/22/2014 Cerebral cysts Degenerative disc disease, cervical 11/22/2014 Elevated prostate specific antigen (PSA) 11/22/2014 Encounter for Medicare annual wellness exam 10/26/2020 Medicare Part B: 08/27/2021 Last done: 01/24/2023 Gastroesophageal reflux disease 11/22/2014 Gout 10/29/2007 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 Hiatal hernia 10/26/2020 Mixed hyperlipidemia 12/06/2015 Spondylosis of lumbar region without myelopathy or radiculopathy 11/21/2018 Well adult exam 10/26/2020 Last done: 10/26/2020 PAST SURGICAL HISTORY PAST SURGICAL HISTORY Procedure Laterality Date CARPAL TUNNEL Left 12/18/2019 COLONOSCOPY FLX DX W/COLLJ SPEC WHEN PFRMD 05/15/13 Colonoscopy NEUROPLASTY &/TRANSPOSITION ULNAR NERVE ELBOW Left 12/18/2019 FAMILY HISTORY FAMILY HISTORY Problem Relation Age of Onset Hypertension Mother other (dementia [Other]) Mother other (pancreatic cancer [Other]) Father other (ovarian cancer [Other]) Sister Chronic Kidney Disease Sister on dialysis None Brother SOCIAL HISTORY Social History Tobacco Use Smoking status: Never Smokeless tobacco: Never Vaping Use Vaping status: Never Used Substance Use Topics Alcohol use: Yes Comment: RARE Drug use: Never REVIEW OF SYMPTOMS: The review of systems data was entered by the nurse and reviewed by ne Nursing Notes: Cyndi Seymour LPN 02/03/2024 1:23 PM Signed REVIEW OF SYSTEMS: General: The patient denies fatigue, denies weight loss, denies weight gain, denies feeling hot, and denies feelings of cold. Eyes: The patient denies glaucoma, denies eye injury/surgery, wears glasses or contacts. Ear/Nose/Throat: The patient denies allergies, denies hayfever, denies ear infections, and denies bloody noses. Cardiovascular: The patient denies chest pain, denies heart disease, denies high blood pressure,denies cardiac stent, denies prior heart attack, denies irregular heart beat, denies high cholesterol, denies poor circulation, denies heart failure, other cardiac issues, denies claudication, denies cold feet, denies peripheral arterial stent. Respiratory: The patient denies tuberculosis, denies pneumonia, denies frequent cough, denies pulmonary embolism, denies shortness of breath, and denies coughing up blood. Gastrointestinal: The patient denies difficulty swallowing, denies acid reflux, denies ulcers, denies vomiting, denies jaundice/hepatitis, denies gallbladder problems, denies black or tarry stools, denies hemorrhoids, denies bleeding from rectum, notes diverticulitis, denies constipation, denies diarrhea, denies loss of stool control, and notes hernias. Kidney/Bladder: The patient denies kidney stones, denies urine infections, and denies bloody urine. Skin: The patient denies a history of skin cancer, denies bleeding/changing moles, and denies a history of skin rash. Neurologic: The patient denies a history of epilepsy/convulsions, denies headaches, denies head/spinal injuries, and denies stroke/TIA. Psychiatric: The patient denies psychiatric medications, denies depression, and denies voices, denies substance abuse. Endocrine: The patient denies thyroid disorders, denies diabetes, and denies hormonal problems. Hematologic: The patient denies a history of bruising, denies bleeding, and denies anemia, denies blood clots. Infections: The patient denies a history of measles and mumps, denies rheumatic fever, and denies sexually transmitted diseases. Musculoskeletal: The patient denies back pain/injury, notes back problems, denies sciatica, denies knee/foot trouble, notes arthritis, or notes gout. When was patient's last Mammogram screening? N/A Last Colonoscopy: 05/15/2013 Cyndi Seymour LPN PHYSICAL EXAMINATION: General: The patient is 68 year old, male well nourished, well hydrated in no acute distress. The patient is oriented to time, place, and person. VITALS: Blood pressure 142/90, pulse 76, temperature 36.3 C (97.3 F), temperature source Temporal, resp. rate 14, height 172.9 cm (5' 8.07), weight 93 kg (205 lb), SpO2 99%. Body mass index is 31.11 kg/m . HEENT: Normal cephalic, ataumatic, pupils are equally round, sclera are anicteric, mucous membranes are moist, oropharynx is clear. Neck has no masses, asymmetry or lymphadenopathy. Respiratory: Clear to auscultation and percussion. Normal respiratory excursion and pattern. Cardiac: Examination is regular rate and rhythm. Normal S1/S2 Abdominal exam: Soft, nontender, with no palpable masses. No hepatosplenomegaly. No palpable hernias. Extremities: no clubbing, cyanosis or edema. No adenopathy. LABORATORY VALUES: As Noted RADIOLOGIC STUDIES: As Noted Assessment IMPRESSION: screen for colon cancer, belching, hiatal hernia PLAN: I have reviewed my findings with the surgeon. Will plan for upper and lower endoscopy. We discussed the risks and benefits of the planned endoscopy. I have informed the patient that complications can occur including failure to complete the endoscopy and perforation. Arthur had the opportunity to ask questions concerning the planned endoscopy. My staff has also explained the procedure to the patient in understandable terms and has given the patient printed material concerning the procedure. Arthur freely consents to surgery. I plan to use Golytely bowel preparation I have explained to the patient the difference between IV conscious sedation and MAC anesthesia - and I have offered either, according to the patient's wishes. I have explained that with IV conscious sedation there is no anesthesia provider available and therefore there is a limitation of the amount of IV medications that can be given and that the patient may wake up in the middle of the procedure and/or experience pain/discomfort during the procedure. Further discussion was done and the patient was given the opportunity to ask questions and all questions were answered. Arthur chooses IV conscious sedation. Arthur was counseled that if there are changes in his/her medical condition, to let the office know if surgery should proceed. If there are changes in patient's medical condition from time of this encounter to the day of the procedure that preclude anesthesia, patient may have procedure cancelled for patient's safety. Diagnoses: (Z12.11) Screening for colon cancer (primary encounter diagnosis) (K21.9) Gastroesophageal reflux disease, unspecified whether esophagitis present (R14.2) Belching (K44.9) Hiatal hernia Consultation requested by Dr. Fraga for an opinion regarding screening for colon cancer. My final recommendations will be communicated back to the requesting physician by way of shared Medical record or letter to requesting physician via US mail. Portions of this documentation were copied and pasted from previous office visit notes in order to provide a cohesive continuity of the history. The note has been reviewed and edited and updated as necessary. Ivonne Balderas APRN.H[employer]CHO[employer] SPECIAL EDUCATION TEACHER UPDATED HISTORY AND PHYSICAL EXAMINATION SERVICE DATE: 02/06/2024 SERVICE TIME: 12:29 PM SENSITIVE EXAMINATION CONSENT: The sensitive examination was discussed with the Patient or Patient's Authorized Rn Nicu. As applicable, any other physician, advance practice provider, medical student, or other health professional student that will be observing or involved in the sensitive examination for educational or training purposes was discussed with the Patient or Authorized Rn Nicu. The Patient or Authorized Rn Nicu has agreed to proceed with the sensitive examination. (Sensitive examination includes inspection and/or palpation of the breasts, pelvis, prostate and anorectal regions) PHYSICAL EXAM MUST BE COMPLETED ON ADMISSION The History and Physical (completed in the past 30 days) has been reviewed and the patient has been examined. The contents accurately reflect the patient's condition with the following additions or revisions since the H&P was completed. Examination indicates no changes. This H&P can be found in the attached. SIGNATURE: Jose Francisco Main III, MD PATIENT NAME: Arthur Diego DATE: February 06, 2024 TIME: 12:29 PM [facility] 02-06-2024 History and physical note HISTORY AND PHYSICAL Arthur Diego : 1955 REFERRING PHYSICIAN: Talha Fraga [address] [facility] [address] CHIEF COMPLAINT: Patient presents with: Consult HPI: Arthur is a 68 year old male referred for endoscopy. Arthur notes due for screening colonoscopy. Arthur denies abdominal pain. Arthur denies diarrhea. Arthur denies constipation. Arthur denies a change in bowel habits. Arthur denies melena. Arthur denies bright red blood per rectum. Arthur denies hemorrhoids. Arthur notes heartburn. Well controlled with Prilosec 20mg daily +excessive belching after drinks or meals, even water. +hx of hiatal hernia after excessive coughing with walking pneumonia in 2015. Refers symptoms have just gotten much worse.- Thought EGD would have been done with last scope, no findings of that. Typically take NSAIDs, however is currently not taking. Arthur denies dysphagia. Arthur denies a history of ulcers/ peptic ulcer disease. Arthur denies family history of colon issues. Arthur's medical history is significant for HTN, GERD, gout & arthritis. Arthur has undergone prior endoscopy. Last colonoscopy 04/2013 at [facility] with Dr. Flower. Sedation received: Midazolam 7 mg IV, Fentanyl 50 micrograms IV Impression: -Diverticulosis in the sigmoid colon and in the descending colon. - Internal hemorrhoids. CURRENT MEDICATIONS Current Outpatient Medications Medication Sig Cholecalciferol, Vitamin D3, 50 mcg (2,000 unit) cap Take 1 capsule by mouth once daily. allopurinol (ZYLOPRIM) 300 mg tablet Take 1 tablet by mouth once daily. lisinopril (ZESTRIL) 20 mg tablet Take 1 tablet by mouth once daily. meloxicam (MOBIC) 15 mg tablet Take 1 tablet by mouth once daily. Take with food. Omeprazole Magnesium (PRILOSEC OTC) 20 mg tablet Take 1 tablet by mouth daily before breakfast. 1/2 hr before meal. COMPOUNDED PRESCRIPTION Prostate supplement - Revive - OTC Zinc (CHELATED ZINC) 50 mg tab Take 1 tablet by mouth once daily. ascorbic acid (VITAMIN C) 500 mg tablet Take 1 tablet by mouth once daily. multivitamins w-minerals/lut(CENTRUM SILVER TAB) Take one(1) tablet daily. gluc samuels/chondro samuels a/vit c/mn(GLUCOSAMINE-CHONDROITIN MAX ST 500 MG-400 MG CAP) 2 tabs daily NIACIN 500 MG TAB Take one(1) tablet daily at bedtime. No current facility-administered medications for this visit. ALLERGIES: Ampicillin and Penicillins PAST MEDICAL HISTORY PAST MEDICAL HISTORY Diagnosis Date Advance directive discussed with patient 01/25/2022 Discussed 12/2021, declined packets Anterolisthesis of lumbar spine 01/24/2023 MRI: 11/06/2022: L5-S1 2-3 mm Arthritis 01/31/2024 On meloxicam BENIGN HYPERTENSION 05/28/2005 BPH with urinary obstruction 11/22/2014 Carpal tunnel syndrome, bilateral 11/22/2014 Cerebral cysts Degenerative disc disease, cervical 11/22/2014 Elevated prostate specific antigen (PSA) 11/22/2014 Encounter for Medicare annual wellness exam 10/26/2020 Medicare Part B: 08/27/2021 Last done: 01/24/2023 Gastroesophageal reflux disease 11/22/2014 Gout 10/29/2007 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 Hiatal hernia 10/26/2020 Mixed hyperlipidemia 12/06/2015 Spondylosis of lumbar region without myelopathy or radiculopathy 11/21/2018 Well adult exam 10/26/2020 Last done: 10/26/2020 PAST SURGICAL HISTORY PAST SURGICAL HISTORY Procedure Laterality Date CARPAL TUNNEL Left 12/18/2019 COLONOSCOPY FLX DX W/COLLJ SPEC WHEN PFRMD 05/15/13 Colonoscopy NEUROPLASTY &/TRANSPOSITION ULNAR NERVE ELBOW Left 12/18/2019 FAMILY HISTORY FAMILY HISTORY Problem Relation Age of Onset Hypertension Mother other (dementia [Other]) Mother other (pancreatic cancer [Other]) Father other (ovarian cancer [Other]) Sister Chronic Kidney Disease Sister on dialysis None Brother SOCIAL HISTORY Social History Tobacco Use Smoking status: Never Smokeless tobacco: Never Vaping Use Vaping status: Never Used Substance Use Topics Alcohol use: Yes Comment: RARE Drug use: Never REVIEW OF SYMPTOMS: The review of systems data was entered by the nurse and reviewed by ne Nursing Notes: Cyndi Seymour LPN 02/03/2024 1:23 PM Signed REVIEW OF SYSTEMS: General: The patient denies fatigue, denies weight loss, denies weight gain, denies feeling hot, and denies feelings of cold. Eyes: The patient denies glaucoma, denies eye injury/surgery, wears glasses or contacts. Ear/Nose/Throat: The patient denies allergies, denies hayfever, denies ear infections, and denies bloody noses. Cardiovascular: The patient denies chest pain, denies heart disease, denies high blood pressure,denies cardiac stent, denies prior heart attack, denies irregular heart beat, denies high cholesterol, denies poor circulation, denies heart failure, other cardiac issues, denies claudication, denies cold feet, denies peripheral arterial stent. Respiratory: The patient denies tuberculosis, denies pneumonia, denies frequent cough, denies pulmonary embolism, denies shortness of breath, and denies coughing up blood. Gastrointestinal: The patient denies difficulty swallowing, denies acid reflux, denies ulcers, denies vomiting, denies jaundice/hepatitis, denies gallbladder problems, denies black or tarry stools, denies hemorrhoids, denies bleeding from rectum, notes diverticulitis, denies constipation, denies diarrhea, denies loss of stool control, and notes hernias. Kidney/Bladder: The patient denies kidney stones, denies urine infections, and denies bloody urine. Skin: The patient denies a history of skin cancer, denies bleeding/changing moles, and denies a history of skin rash. Neurologic: The patient denies a history of epilepsy/convulsions, denies headaches, denies head/spinal injuries, and denies stroke/TIA. Psychiatric: The patient denies psychiatric medications, denies depression, and denies voices, denies substance abuse. Endocrine: The patient denies thyroid disorders, denies diabetes, and denies hormonal problems. Hematologic: The patient denies a history of bruising, denies bleeding, and denies anemia, denies blood clots. Infections: The patient denies a history of measles and mumps, denies rheumatic fever, and denies sexually transmitted diseases. Musculoskeletal: The patient denies back pain/injury, notes back problems, denies sciatica, denies knee/foot trouble, notes arthritis, or notes gout. When was patient's last Mammogram screening? N/A Last Colonoscopy: 05/15/2013 Cyndi Seymour LPN PHYSICAL EXAMINATION: General: The patient is 68 year old, male well nourished, well hydrated in no acute distress. The patient is oriented to time, place, and person. VITALS: Blood pressure 142/90, pulse 76, temperature 36.3 C (97.3 F), temperature source Temporal, resp. rate 14, height 172.9 cm (5' 8.07), weight 93 kg (205 lb), SpO2 99%. Body mass index is 31.11 kg/m . HEENT: Normal cephalic, ataumatic, pupils are equally round, sclera are anicteric, mucous membranes are moist, oropharynx is clear. Neck has no masses, asymmetry or lymphadenopathy. Respiratory: Clear to auscultation and percussion. Normal respiratory excursion and pattern. Cardiac: Examination is regular rate and rhythm. Normal S1/S2 Abdominal exam: Soft, nontender, with no palpable masses. No hepatosplenomegaly. No palpable hernias. Extremities: no clubbing, cyanosis or edema. No adenopathy. LABORATORY VALUES: As Noted RADIOLOGIC STUDIES: As Noted Assessment IMPRESSION: screen for colon cancer, belching, hiatal hernia PLAN: I have reviewed my findings with the surgeon. Will plan for upper and lower endoscopy. We discussed the risks and benefits of the planned endoscopy. I have informed the patient that complications can occur including failure to complete the endoscopy and perforation. Arthur had the opportunity to ask questions concerning the planned endoscopy. My staff has also explained the procedure to the patient in understandable terms and has given the patient printed material concerning the procedure. Arthur freely consents to surgery. I plan to use Golytely bowel preparation I have explained to the patient the difference between IV conscious sedation and MAC anesthesia - and I have offered either, according to the patient's wishes. I have explained that with IV conscious sedation there is no anesthesia provider available and therefore there is a limitation of the amount of IV medications that can be given and that the patient may wake up in the middle of the procedure and/or experience pain/discomfort during the procedure. Further discussion was done and the patient was given the opportunity to ask questions and all questions were answered. Arthur chooses IV conscious sedation. Arthur was counseled that if there are changes in his/her medical condition, to let the office know if surgery should proceed. If there are changes in patient's medical condition from time of this encounter to the day of the procedure that preclude anesthesia, patient may have procedure cancelled for patient's safety. Diagnoses: (Z12.11) Screening for colon cancer (primary encounter diagnosis) (K21.9) Gastroesophageal reflux disease, unspecified whether esophagitis present (R14.2) Belching (K44.9) Hiatal hernia Consultation requested by Dr. Fraga for an opinion regarding screening for colon cancer. My final recommendations will be communicated back to the requesting physician by way of shared Medical record or letter to requesting physician via [place] mail. Portions of this documentation were copied and pasted from previous office visit notes in order to provide a cohesive continuity of the history. The note has been reviewed and edited and updated as necessary. Ivonne Balderas APRN.CNP UPDATED HISTORY AND PHYSICAL EXAMINATION SERVICE DATE: 02/06/2024 SERVICE TIME: 12:29 PM SENSITIVE EXAMINATION CONSENT: The sensitive examination was discussed with the Patient or Patient's Authorized Rn Nicu. As applicable, any other physician, advance practice provider, medical student, or other health professional student that will be observing or involved in the sensitive examination for educational or training purposes was discussed with the Patient or Authorized Rn Nicu. The Patient or Authorized Rn Nicu has agreed to proceed with the sensitive examination. (Sensitive examination includes inspection and/or palpation of the breasts, pelvis, prostate and anorectal regions) PHYSICAL EXAM MUST BE COMPLETED ON ADMISSION The History and Physical (completed in the past 30 days) has been reviewed and the patient has been examined. The contents accurately reflect the patient's condition with the following additions or revisions since the H&P was completed. Examination indicates no changes. This H&P can be found in the attached. SIGNATURE: Jose Francisco Main III, MD PATIENT NAME: Arthur Diego DATE: February 06, 2024 TIME: 12:29 PM documented in this encounter [facility] 02-06-2024 Note Formatting of this n ote might be different from the original. The patient received a copy of Colonoscopy and EGD discharge instructions that contain information for how to contact the physician who performed the procedure and when to seek medical care. Aruna Dougherty RN [facility] 02-06-2024 Miscellaneous Notes The patient received a copy of Colonoscopy and EGD discharge instructions that contain information for how to contact the physician who performed the procedure and when to seek medical care. Aruna Dougherty RN documented in this encounter [facility] 02-03-2024 Telephone encounter Note Spoke with pt and information listed below given. Pt verbalizes understanding. Pt aware of your information. Does not wish to pursue at this time. Masha Johnson LPN [facility] 02-03-2024 Miscellaneous Notes Spoke with pt and information listed below given. Pt verbalizes understanding. Pt aware of your information. Does not wish to pursue at this time. Masha Johnson LPN Left message with patient's to contact the office. Lulu Mckeon MA Addended by: TALHA FRAGA on: 02/03/2024 12:25 PM Modules accepted: Orders Please advise patient that lead toxicity can lead to memory and chronic physical issues. Patient informed and verbalized understanding. Does not wish at this time to see Occ med. Destiney Bhagat MA Let patient know his lead level is high. I have placed a referral to see occupational Med to help get this lower. His UA showed some blood. Want to repeat in a month. Order placed. His Vit D level is way to high at 144.8. this can lead to calcium issues. I would advise him to stop his vit D for a week the start 2,000 international unit(s) 's just once a day. We will recheck level in a month. Lipid panel ok. HDL is low and increased physical activity can help improve this. All his other labs and PSA were ok. documented in this encounter [facility] 02-03-2024 History of Present illness Narrative HISTORY AND PHYSICAL Arthur Diego : 1955 REFERRING PHYSICIAN: Talha Fraga [address] [facility] [address] CHIEF COMPLAINT: Patient presents with: Consult HPI: Artuhr is a 68 year old male referred for endoscopy. Arthur notes due for screening colonoscopy. Arthur denies abdominal pain. Arthur denies diarrhea. Arthur denies constipation. Arthur denies a change in bowel habits. Arthur denies melena. Arthur denies bright red blood per rectum. Arthur denies hemorrhoids. Arthur notes heartburn. Well controlled with Prilosec 20mg daily +excessive belching after drinks or meals, even water. +hx of hiatal hernia after excessive coughing with walking pneumonia in 2015. Refers symptoms have just gotten much worse.- Thought EGD would have been done with last scope, no findings of that. Typically take NSAIDs, however is currently not taking. Arthur denies dysphagia. Arthur denies a history of ulcers/ peptic ulcer disease. Arthur denies family history of colon issues. Arthur's medical history is significant for HTN, GERD, gout & arthritis. Arthur has undergone prior endoscopy. Last colonoscopy 04/2013 at [facility] with Dr. Flower. Sedation received: Midazolam 7 mg IV, Fentanyl 50 micrograms IV Impression: -Diverticulosis in the sigmoid colon and in the descending colon. - Internal hemorrhoids. Current Outpatient Medications Medication Sig Cholecalciferol, Vitamin D3, 50 mcg (2,000 unit) cap Take 1 capsule by mouth once daily. allopurinol (ZYLOPRIM) 300 mg tablet Take 1 tablet by mouth once daily. lisinopril (ZESTRIL) 20 mg tablet Take 1 tablet by mouth once daily. meloxicam (MOBIC) 15 mg tablet Take 1 tablet by mouth once daily. Take with food. Omeprazole Magnesium (PRILOSEC OTC) 20 mg tablet Take 1 tablet by mouth daily before breakfast. 1/2 hr before meal. COMPOUNDED PRESCRIPTION Prostate supplement - Revive - OTC Zinc (CHELATED ZINC) 50 mg tab Take 1 tablet by mouth once daily. ascorbic acid (VITAMIN C) 500 mg tablet Take 1 tablet by mouth once daily. multivitamins w-minerals/lut(CENTRUM SILVER TAB) Take one(1) tablet daily. gluc samuels/chondro samuels a/vit c/mn(GLUCOSAMINE-CHONDROITIN MAX ST 500 MG-400 MG CAP) 2 tabs daily NIACIN 500 MG TAB Take one(1) tablet daily at bedtime. No current facility-administered medications for this visit. ALLERGIES: Ampicillin and Penicillins PAST MEDICAL HISTORY Diagnosis Date Advance directive discussed with patient 01/25/2022 Discussed 12/2021, declined packets Anterolisthesis of lumbar spine 01/24/2023 MRI: 11/06/2022: L5-S1 2-3 mm Arthritis 01/31/2024 On meloxicam BENIGN HYPERTENSION 05/28/2005 BPH with urinary obstruction 11/22/2014 Carpal tunnel syndrome, bilateral 11/22/2014 Cerebral cysts Degenerative disc disease, cervical 11/22/2014 Elevated prostate specific antigen (PSA) 11/22/2014 Encounter for Medicare annual wellness exam 10/26/2020 Medicare Part B: 08/27/2021 Last done: 01/24/2023 Gastroesophageal reflux disease 11/22/2014 Gout 10/29/2007 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 Hiatal hernia 10/26/2020 Mixed hyperlipidemia 12/06/2015 Spondylosis of lumbar region without myelopathy or radiculopathy 11/21/2018 Well adult exam 10/26/2020 Last done: 10/26/2020 PAST SURGICAL HISTORY Procedure Laterality Date CARPAL TUNNEL Left 12/18/2019 COLONOSCOPY FLX DX W/COLLJ SPEC WHEN PFRMD 05/15/13 Colonoscopy NEUROPLASTY &/TRANSPOSITION ULNAR NERVE ELBOW Left 12/18/2019 FAMILY HISTORY Problem Relation Age of Onset Hypertension Mother other (dementia [Other]) Mother other (pancreatic cancer [Other]) Father other (ovarian cancer [Other]) Sister Chronic Kidney Disease Sister on dialysis None Brother Social History Tobacco Use Smoking status: Never Smokeless tobacco: Never Vaping Use Vaping status: Never Used Substance Use Topics Alcohol use: Yes Comment: RARE Drug use: Never REVIEW OF SYMPTOMS: The review of systems data was entered by the nurse and reviewed by ne Nursing Notes: Cyndi Seymoru LPN 02/03/2024 1:23 PM Signed REVIEW OF SYSTEMS: General: The patient denies fatigue, denies weight loss, denies weight gain, denies feeling hot, and denies feelings of cold. Eyes: The patient denies glaucoma, denies eye injury/surgery, wears glasses or contacts. Ear/Nose/Throat: The patient denies allergies, denies hayfever, denies ear infections, and denies bloody noses. Cardiovascular: The patient denies chest pain, denies heart disease, denies high blood pressure,denies cardiac stent, denies prior heart attack, denies irregular heart beat, denies high cholesterol, denies poor circulation, denies heart failure, other cardiac issues, denies claudication, denies cold feet, denies peripheral arterial stent. Respiratory: The patient denies tuberculosis, denies pneumonia, denies frequent cough, denies pulmonary embolism, denies shortness of breath, and denies coughing up blood. Gastrointestinal: The patient denies difficulty swallowing, denies acid reflux, denies ulcers, denies vomiting, denies jaundice/hepatitis, denies gallbladder problems, denies black or tarry stools, denies hemorrhoids, denies bleeding from rectum, notes diverticulitis, denies constipation, denies diarrhea, denies loss of stool control, and notes hernias. Kidney/Bladder: The patient denies kidney stones, denies urine infections, and denies bloody urine. Skin: The patient denies a history of skin cancer, denies bleeding/changing moles, and denies a history of skin rash. Neurologic: The patient denies a history of epilepsy/convulsions, denies headaches, denies head/spinal injuries, and denies stroke/TIA. Psychiatric: The patient denies psychiatric medications, denies depression, and denies voices, denies substance abuse. Endocrine: The patient denies thyroid disorders, denies diabetes, and denies hormonal problems. Hematologic: The patient denies a history of bruising, denies bleeding, and denies anemia, denies blood clots. Infections: The patient denies a history of measles and mumps, denies rheumatic fever, and denies sexually transmitted diseases. Musculoskeletal: The patient denies back pain/injury, notes back problems, denies sciatica, denies knee/foot trouble, notes arthritis, or notes gout. When was patient's last Mammogram screening? N/A Last Colonoscopy: 05/15/2013 Cyndi Seymour LPN PHYSICAL EXAMINATION: General: The patient is 68 year old, male well nourished, well hydrated in no acute distress. The patient is oriented to time, place, and person. VITALS: Blood pressure 142/90, pulse 76, temperature 36.3 C (97.3 F), temperature source Temporal, resp. rate 14, height 172.9 cm (5' 8.07), weight 93 kg (205 lb), SpO2 99%. Body mass index is 31.11 kg/m . HEENT: Normal cephalic, ataumatic, pupils are equally round, sclera are anicteric, mucous membranes are moist, oropharynx is clear. Neck has no masses, asymmetry or lymphadenopathy. Respiratory: Clear to auscultation and percussion. Normal respiratory excursion and pattern. Cardiac: Examination is regular rate and rhythm. Normal S1/S2 Abdominal exam: Soft, nontender, with no palpable masses. No hepatosplenomegaly. No palpable hernias. Extremities: no clubbing, cyanosis or edema. No adenopathy. LABORATORY VALUES: As Noted RADIOLOGIC STUDIES: As Noted Assessment IMPRESSION: screen for colon cancer, belching, hiatal hernia PLAN: I have reviewed my findings with the surgeon. Will plan for upper and lower endoscopy. We discussed the risks and benefits of the planned endoscopy. I have informed the patient that complications can occur including failure to complete the endoscopy and perforation. Arthur had the opportunity to ask questions concerning the planned endoscopy. My staff has also explained the procedure to the patient in understandable terms and has given the patient printed material concerning the procedure. Arthur freely consents to surgery. I plan to use Golytely bowel preparation I have explained to the patient the difference between IV conscious sedation and MAC anesthesia - and I have offered either, according to the patient's wishes. I have explained that with IV conscious sedation there is no anesthesia provider available and therefore there is a limitation of the amount of IV medications that can be given and that the patient may wake up in the middle of the procedure and/or experience pain/discomfort during the procedure. Further discussion was done and the patient was given the opportunity to ask questions and all questions were answered. Arthur chooses IV conscious sedation. Arthur was counseled that if there are changes in his/her medical condition, to let the office know if surgery should proceed. If there are changes in patient's medical condition from time of this encounter to the day of the procedure that preclude anesthesia, patient may have procedure cancelled for patient's safety. Diagnoses: (Z12.11) Screening for colon cancer (primary encounter diagnosis) (K21.9) Gastroesophageal reflux disease, unspecified whether esophagitis present (R14.2) Belching (K44.9) Hiatal hernia Consultation requested by Dr. Fraga for an opinion regarding screening for colon cancer. My final recommendations will be communicated back to the requesting physician by way of shared Medical record or letter to requesting physician via [place] mail. Portions of this documentation were copied and pasted from previous office visit notes in order to provide a cohesive continuity of the history. The note has been reviewed and edited and updated as necessary. Ivonne Balderas APRN.HIGH SCHOOL SPECIAL EDUCATION TEACHER documented in this encounter [facility] 02-03-2024 Note HNO ID: [id number] Author: IVONNE BALDERAS APRN.JOANN Service: ? Author Type: Nurse Practitioner Type: Progress Notes Filed: 02/03/2024 13:42 Note Text: HISTORY AND PHYSICAL Arthur Diego : 1955 REFERRING PHYSICIAN: Talha Fraga [address] [facility] [address] CHIEF COMPLAINT: Patient presents with: Consult HPI: Arthur is a 68 year old male referred for endoscopy. Arthur notes due for screening colonoscopy. Arthur denies abdominal pain. Arthur denies diarrhea. Arthur denies constipation. Arthur denies a change in bowel habits. Arthur denies melena. Arthur denies bright red blood per rectum. Arthur denies hemorrhoids. Arthur notes heartburn. Well controlled with Prilosec 20mg daily +excessive belching after drinks or meals, even water. +hx of hiatal hernia after excessive coughing with walking pneumonia in 2014. Refers symptoms have just gotten much worse.- Thought EGD would have been done with last scope, no findings of that. Typically take NSAIDs, however is currently not taking. Arthur denies dysphagia. Arthur denies a history of ulcers/ peptic ulcer disease. Arthur denies family history of colon issues. Arthur's medical history is significant for HTN, GERD, gout AND arthritis. Arthur has undergone prior endoscopy. Last colonoscopy 04/2013 at [facility] with Dr. Flower. Sedation received: Midazolam 7 mg IV, Fentanyl 50 micrograms IV Impression: -Diverticulosis in the sigmoid colon and in the descending colon. - Internal hemorrhoids. Current Outpatient Medications Medication Sig Cholecalciferol, Vitamin D3, 50 mcg (2,000 unit) cap Take 1 capsule by mouth once daily. allopurinol (ZYLOPRIM) 300 mg tablet Take 1 tablet by mouth once daily. lisinopril (ZESTRIL) 20 mg tablet Take 1 tablet by mouth once daily. meloxicam (MOBIC) 15 mg tablet Take 1 tablet by mouth once daily. Take with food. Omeprazole Magnesium (PRILOSEC OTC) 20 mg tablet Take 1 tablet by mouth daily before breakfast. 1/2 hr before meal. COMPOUNDED PRESCRIPTION Prostate supplement - Revive - OTC Zinc (CHELATED ZINC) 50 mg tab Take 1 tablet by mouth once daily. ascorbic acid (VITAMIN C) 500 mg tablet Take 1 tablet by mouth once daily. multivitamins w-minerals/lut(CENTRUM SILVER TAB) Take one(1) tablet daily. gluc samuels/chondro samuels a/vit c/mn(GLUCOSAMINE-CHONDROITIN MAX ST 500 MG-400 MG CAP) 2 tabs daily NIACIN 500 MG TAB Take one(1) tablet daily at bedtime. No current facility-administered medications for this visit. ALLERGIES: Ampicillin and Penicillins PAST MEDICAL HISTORY Diagnosis Date Advance directive discussed with patient 01/25/2022 Discussed 12/2021, declined packets Anterolisthesis of lumbar spine 01/24/2023 MRI: 11/06/2022: L5-S1 2-3 mm Arthritis 01/31/2024 On meloxicam BENIGN HYPERTENSION 05/28/2005 BPH with urinary obstruction 11/22/2014 Carpal tunnel syndrome, bilateral 11/22/2014 Cerebral cysts Degenerative disc disease, cervical 11/22/2014 Elevated prostate specific antigen (PSA) 11/22/2014 Encounter for Medicare annual wellness exam 10/26/2020 Medicare Part B: 08/27/2021 Last done: 01/24/2023 Gastroesophageal reflux disease 11/22/2014 Gout 10/29/2007 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 Hiatal hernia 10/26/2020 Mixed hyperlipidemia 12/06/2015 Spondylosis of lumbar region without myelopathy or radiculopathy 11/21/2018 Well adult exam 10/26/2020 Last done: 10/26/2020 PAST SURGICAL HISTORY Procedure Laterality Date CARPAL TUNNEL Left 12/18/2019 COLONOSCOPY FLX DX W/COLLJ SPEC WHEN PFRMD 1/17/14 Colonoscopy NEUROPLASTY AND/TRANSPOSITION ULNAR NERVE ELBOW Left 12/18/2019 FAMILY HISTORY Problem Relation Age of Onset Hypertension Mother other (dementia [Other]) Mother other (pancreatic cancer [Other]) Father other (ovarian cancer [Other]) Sister Chronic Kidney Disease Sister on dialysis None Brother Social History Tobacco Use Smoking status: Never Smokeless tobacco: Never Vaping Use Vaping status: Never Used Substance Use Topics Alcohol use: Yes Comment: RARE Drug use: Never REVIEW OF SYMPTOMS: The review of systems data was entered by the nurse and reviewed by me Nursing Notes: Cyndi Seymour LPN 02/03/2024 1:23 PM Signed REVIEW OF SYSTEMS: General: The patient denies fatigue, denies weight loss, denies weight gain, denies feeling hot, and denies feelings of cold. Eyes: The patient denies glaucoma, denies eye injury/surgery, wears glasses or contacts. Ear/Nose/Throat: The patient denies allergies, denies hayfever, denies ear infections, and denies bloody noses. Cardiovascular: The patient denies chest pain, denies heart disease, denies high blood pressure,denies cardiac stent, denies prior heart attack, denies irregular heart beat, denies high cholesterol, denies poor circulation, denies heart failure, other cardiac issues, denies claudication, denies cold feet, denies peripheral arterial stent. Res (more content not included)... [facility] 02-03-2024 Telephone encounter Note Left message with patient's to contact the office. Lulu Mckeon MA [facility] 02-03-2024 Nurse Note REVIEW OF SYSTEMS: General: The patient denies fatigue, denies weight loss, denies weight gain, denies feeling hot, and denies feelings of cold. Eyes: The patient denies glaucoma, denies eye injury/surgery, wears glasses or contacts. Ear/Nose/Throat: The patient denies allergies, denies hayfever, denies ear infections, and denies bloody noses. Cardiovascular: The patient denies chest pain, denies heart disease, denies high blood pressure,denies cardiac stent, denies prior heart attack, denies irregular heart beat, denies high cholesterol, denies poor circulation, denies heart failure, other cardiac issues, denies claudication, denies cold feet, denies peripheral arterial stent. Respiratory: The patient denies tuberculosis, denies pneumonia, denies frequent cough, denies pulmonary embolism, denies shortness of breath, and denies coughing up blood. Gastrointestinal: The patient denies difficulty swallowing, denies acid reflux, denies ulcers, denies vomiting, denies jaundice/hepatitis, denies gallbladder problems, denies black or tarry stools, denies hemorrhoids, denies bleeding from rectum, notes diverticulitis, denies constipation, denies diarrhea, denies loss of stool control, and notes hernias. Kidney/Bladder: The patient denies kidney stones, denies urine infections, and denies bloody urine. Skin: The patient denies a history of skin cancer, denies bleeding/changing moles, and denies a history of skin rash. Neurologic: The patient denies a history of epilepsy/convulsions, denies headaches, denies head/spinal injuries, and denies stroke/TIA. Psychiatric: The patient denies psychiatric medications, denies depression, and denies voices, denies substance abuse. Endocrine: The patient denies thyroid disorders, denies diabetes, and denies hormonal problems. Hematologic: The patient denies a history of bruising, denies bleeding, and denies anemia, denies blood clots. Infections: The patient denies a history of measles and mumps, denies rheumatic fever, and denies sexually transmitted diseases. Musculoskeletal: The patient denies back pain/injury, notes back problems, denies sciatica, denies knee/foot trouble, notes arthritis, or notes gout. When was patient's last Mammogram screening? N/A Last Colonoscopy: 05/15/2013 Cyndi Seymour LPN [facility] 02-03-2024 Nurse Note REVIEW OF SYSTEMS: General: The patient denies fatigue, denies weight loss, denies weight gain, denies feeling hot, and denies feelings of cold. Eyes: The patient denies glaucoma, denies eye injury/surgery, wears glasses or contacts. Ear/Nose/Throat: The patient denies allergies, denies hayfever, denies ear infections, and denies bloody noses. Cardiovascular: The patient denies chest pain, denies heart disease, denies high blood pressure,denies cardiac stent, denies prior heart attack, denies irregular heart beat, denies high cholesterol, denies poor circulation, denies heart failure, other cardiac issues, denies claudication, denies cold feet, denies peripheral arterial stent. Respiratory: The patient denies tuberculosis, denies pneumonia, denies frequent cough, denies pulmonary embolism, denies shortness of breath, and denies coughing up blood. Gastrointestinal: The patient denies difficulty swallowing, denies acid reflux, denies ulcers, denies vomiting, denies jaundice/hepatitis, denies gallbladder problems, denies black or tarry stools, denies hemorrhoids, denies bleeding from rectum, notes diverticulitis, denies constipation, denies diarrhea, denies loss of stool control, and notes hernias. Kidney/Bladder: The patient denies kidney stones, denies urine infections, and denies bloody urine. Skin: The patient denies a history of skin cancer, denies bleeding/changing moles, and denies a history of skin rash. Neurologic: The patient denies a history of epilepsy/convulsions, denies headaches, denies head/spinal injuries, and denies stroke/TIA. Psychiatric: The patient denies psychiatric medications, denies depression, and denies voices, denies substance abuse. Endocrine: The patient denies thyroid disorders, denies diabetes, and denies hormonal problems. Hematologic: The patient denies a history of bruising, denies bleeding, and denies anemia, denies blood clots. Infections: The patient denies a history of measles and mumps, denies rheumatic fever, and denies sexually transmitted diseases. Musculoskeletal: The patient denies back pain/injury, notes back problems, denies sciatica, denies knee/foot trouble, notes arthritis, or notes gout. When was patient's last Mammogram screening? N/A Last Colonoscopy: 05/15/2013 Cyndi Seymour LPN documented in this encounter [facility] 02-03-2024 Note Addended by: TALHA FRAGA on: 02/03/2024 12:25 PM Modules accepted: Orders [facility] 02-03-2024 Telephone encounter Note Please advise patient that lead toxicity can lead to memory and chronic physical issues. [facility] 02-03-2024 Telephone encounter Note Patient informed and verbalized understanding. Does not wish at this time to see Occ med. Destiney Bhagat MA [facility] 02-03-2024 Telephone encounter Note Let patient know his lead level is high. I have placed a referral to see occupational Med to help get this lower. His UA showed some blood. Want to repeat in a month. Order placed. His Vit D level is way to high at 144.8. this can lead to calcium issues. I would advise him to stop his vit D for a week the start 2,000 international unit(s) 's just once a day. We will recheck level in a month. Lipid panel ok. HDL is low and increased physical activity can help improve this. All his other labs and PSA were ok. [facility] 01-31-2024 Instructions Talha Fraga MD - 01/31/2024 8:07 AM EDT Please bring in copies of your power of employment attorney for health care and living will. Consider getting the shingrix vaccine for the prevention of shingles from a local pharmacy Screening schedule The following prevention plan is recommended: Depression Screening Never done Anxiety Screening Never done Shingrix Vaccine(1 of 2) Never done Pneumococcal Vaccine: 65+(1 of 1 - PCV) Never done BP Controlled (<130/80) due on 01/25/2023 Advance Directive Discussion due on 04/29/2023 Colorectal Cancer Screening due on 05/15/2023 Covid-19 Vaccine( season) due on 12/29/2023 WHAT YOU CAN DO TO PREVENT FALLS Many falls can be prevented. By making some changes, you can lower your chances of falling. Four things YOU can do to prevent falls for you* and your caregiver 1. Begin a regular exercise program Exercise is one of the most important ways to lower your chances of falling. It makes you stronger and helps you feel better. Exercises that improve balance and coordination (like Janes Chi) are the most helpful. Lack of exercise leads to weakness and increases your chances of falling. Ask your doctor or health care provider about the best type of exercise program for you. 2. Have your health care provider review your medicines Have your doctor or pharmacist review all the medicines you take, even [id number] medicines. As you get older, the way medicines work in your body can change. Some medicines, or combinations of medicines, can make you sleepy or dizzy and can cause you to fall. 3. Have your vision checked Have your eyes checked by an eye doctor at least once a year. You may be wearing the wrong glasses or have a condition like glaucoma or cataracts that limits your vision. Poor vision can increase your chances of falling. 4. Make your home safer About half of all falls happen at home. To make your home safer: Remove things you can trip over (like papers, books, clothes, and shoes) from stairs and places where you walk. Remove small throw rugs or use double-sided tape to keep the rugs from slipping. Keep items you use often in cabinets you can reach easily without using a step stool. Have grab bars put in next to your toilet and in the tub or shower. Use non-slip mats in the bathtub and on shower floors. Improve the lighting in your home. As you get older, you need brighter lights to see well. Hang light-weight curtains or shades to reduce glare. Have handrails and lights put in on all staircases. Wear shoes both inside and outside the house. Avoid going barefoot or wearing slippers. For more information, contact: Centers for Disease Control and Prevention www.cdc.gov/injury * This information may not apply if you have certain medical conditions. documented in this encounter [facility] 01-31-2024 History of Present illness Narrative Images from the original note were not included. Arthur Diego is a 68 year old male here for a Medicare wellness visit. Medicare Health Risk Assessment General Health Good Exercise: Minutes/Day 0 min Exercise: Days/Week 0 days Alcohol: Daily Use Monthly or less Alcohol: Drinks/Day 1 or 2 Alcohol: 6 or more drinks Never Feel off balance No Concerns: Teeth/Dentures No Concerns: Sexual function No Troubled by feelings None of the above Frequency: Eating healthy diet Several days ADLs requiring help None of the above Safety precautions in home/vehicle No Smoke, vape, chews tobacco No Difficulty hearing No Difficulty seeing No Current Providers Specialists: I have reviewed specialist-related care of the patient in the medical record. Current care team: Patient Care Team: Talha Fraga MD as PCP - General (Family Medicine) Optho Medical/Family history review Reviewed and updated problem list, medical/surgical/family/social history, medications, and allergies. Opioid use review Opioid Medications (last 90 days) No data to display Anxiety/Depression screening PHQ-2 Score: 0 (Lower risk for depression) Recommendation: no further intervention at this time Cognitive screening Cognitive screening reviewed and No further action needed (score 3-5). Functional Observation Was the patient's Timed Up & Go test unsteady or >= 12 seconds? No Advance Care Planning Surrogate decision maker and/or advance care plan documented Measurements BP 142/94 (BP Site: Left Arm, BP Position: Sitting, BP Cuff Size: Regular Adult) Pulse 62 Resp 16 Ht 173.4 cm (5' 8.25) Wt 91.6 kg (202 lb) BMI 30.49 kg/m Vision Screening: Follows with optometry/ophthalmology Assessment/Plan Medicare annual wellness visit, subsequent (Z00.00) - Counseled on healthy diet and regular exercise - Fall avoidance information provided - Personalized prevention plan provided See Below Chief Complaint Patient presents with: Medicare Wellness Exam HPI Arthur Diego is a 68 year old male who presents here today for Chronic Medical Conditions. and Medicare Annual Visit. Patient with Hx of HTN, Hyperlipidemia, GERD, Gout, BPH, elevated PSA, spondylosis lumbar region as well as those reviewed and addressed below and in ROS. Patient has been doing well. No new issues or concerns. Past medical history, appointments, medications, allergies reviewed. Previous Medical History PAST MEDICAL HISTORY Diagnosis Date Advance directive discussed with patient 01/25/2022 Discussed 12/2021, declined packets Anterolisthesis of lumbar spine 01/24/2023 MRI: 11/06/2022: L5-S1 2-3 mm BENIGN HYPERTENSION 05/28/2005 BPH with urinary obstruction 11/22/2014 Carpal tunnel syndrome, bilateral 11/22/2014 Cerebral cysts Degenerative disc disease, cervical 11/22/2014 Elevated prostate specific antigen (PSA) 11/22/2014 Encounter for Medicare annual wellness exam 10/26/2020 Medicare Part B: 08/27/2021 Last done: 01/24/2023 Gastroesophageal reflux disease 11/22/2014 Gout 10/29/2007 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 Hiatal hernia 10/26/2020 Mixed hyperlipidemia 12/06/2015 Spondylosis of lumbar region without myelopathy or radiculopathy 11/21/2018 Well adult exam 10/26/2020 Last done: 10/26/2020 Previous Surgical History PAST SURGICAL HISTORY Procedure Laterality Date CARPAL TUNNEL Left 12/18/2019 COLONOSCOPY FLX DX W/COLLJ SPEC WHEN PFRMD 05/15/13 Colonoscopy NEUROPLASTY &/TRANSPOSITION ULNAR NERVE ELBOW Left 12/18/2019 Family History FAMILY HISTORY Problem Relation Age of Onset Hypertension Mother other (pancreatic cancer [Other]) Father other (ovarian cancer [Other]) Sister None Sister None Brother other (dementia [Other]) Mother Patient Allergies ALLERGIES Allergen Reactions Ampicillin Hives Penicillins Hives Current Medications Current Outpatient Medications on File Prior to Visit Medication Sig lisinopril (ZESTRIL) 20 mg tablet Take 1 tablet by mouth once daily. allopurinol (ZYLOPRIM) 300 mg tablet Take 1 tablet by mouth once daily. Omeprazole Magnesium (PRILOSEC OTC) 20 mg tablet Take 1 tablet by mouth daily before breakfast. 1/2 hr before meal. COMPOUNDED PRESCRIPTION Prostate supplement - Revive - OTC Zinc (CHELATED ZINC) 50 mg tab Take 1 tablet by mouth once daily. Cholecalciferol, Vitamin D3, 5,000 unit cap Take 1 capsule by mouth once daily. (Patient taking differently: Take 5,000 Units by mouth once daily. Take (2) tablets daily) ascorbic acid (VITAMIN C) 500 mg tablet Take 1 tablet by mouth once daily. multivitamins w-minerals/lut(CENTRUM SILVER TAB) Take one(1) tablet daily. gluc samuels/chondro samuels a/vit c/mn(GLUCOSAMINE-CHONDROITIN MAX ST 500 MG-400 MG CAP) 2 tabs daily NIACIN 500 MG TAB Take one(1) tablet daily at bedtime. No current facility-administered medications on file prior to visit. Social History Social History Tobacco Use Smoking status: Never Smokeless tobacco: Never Substance Use Topics Alcohol use: Yes Comment: RARE Review of Symptoms REVIEW OF SYSTEMS GENERAL: No unintentional weight loss, malaise or fevers HEENT: Negative for frequent or significant headaches, No changes in vision, no nose bleeds or other nasal problems. Some decreased hearing. NECK: Negative for lumps, goiter, pain and significant neck swelling RESPIRATORY: Negative for cough, hemoptysis, wheezing, COPD, dyspnea or shortness of breath CARDIOVASCULAR: Negative for chest pain, leg swelling, hypertension, CHF or palpitations GI: No nausea, vomiting, or diarrhea, No heartburn or reflux symptoms, and no blood. : No history of dysuria, frequency or incontinence MUSCULOSKELETAL: Negative for new or changes in his typical oint pain or swelling, back pain or muscle pain SKIN: Negative for lesions, rash, and itching PSYCH: Negative for sleep disturbance, mood disorder and recent psychosocial stressors HEMATOLOGY/LYMPHOLOGY: Negative for prolonged bleeding, bruising easily or swollen nodes ENDOCRINE: Negative for cold or heat intolerance, polyuria, polydipsia and goiter NEURO: No history of headaches, syncope, paralysis, seizures or tremors EXAM: BP 142/94 (BP Site: Left Arm, BP Position: Sitting, BP Cuff Size: Regular Adult) Pulse 62 Resp 16 Ht 173.4 cm (5' 8.25) Wt 91.6 kg (202 lb) BMI 30.49 kg/m BP 136/82 Pulse 62 Resp 16 Ht 173.4 cm (5' 8.25) Wt 91.6 kg (202 lb) BMI 30.49 kg/m Last 5 Encounter Wt Readings: Date: Wt: 01/31/2024 91.6 kg (202 lb) 02/27/2023 94.3 kg (208 lb) 01/24/2023 92.1 kg (203 lb) 01/25/2022 91.6 kg (202 lb) 04/03/2021 93.3 kg (205 lb 9.6 oz) General Appearance: Well appearing, alert, in no acute distress, well-hydrated, well nourished. and Overweight. Skin: Skin color, texture, turgor normal, no suspicious rashes or lesions. Head: Normocephalic, no masses, lesions, tenderness or abnormalities. Eyes: Anicteric sclera. Pupils are equally round and reactive to light. Extraocular movements are intact. . Ears: External ears, TM's normal, canals clear. Nose/Sinuses: Nares normal, septum midline, mucosa normal, no drainage or sinus tenderness. Oropharynx: Lips, mucosa, and tongue normal, teeth and gums normal, oropharynx normal. Neck: Supple, no adenopathy; thyroid symmetric, normal size, no bruits. Lungs: Lungs clear to auscultation. No wheezing, rhonchi, rales.. Heart: RRR without murmur, gallop, or rubs. No ectopy. Abdomen: Normal abdominal exam, Abdomen soft, non-tender. Bowel sounds normal. No masses, organomegaly. Extremities: No deformities, edema, skin discoloration, Good capillary refill. . Musculoskeletal: Muscular strength intact, No joint swelling, deformity, or tenderness. Peripheral Pulses: Normal. Neurologic: Gait normal. Reflexes normal and symmetric. Sensation grossly intact.. Genitalia: Normal. Rectal: Rectal negative. Prostate palpation negative except slightly enlarged with smooth firm capsule. Health Maintenance List Depression Screening Never done Anxiety Screening Never done Shingrix Vaccine(1 of 2) Never done Pneumococcal Vaccine: 65+(1 of 1 - PCV) Never done BP Controlled (<130/80) due on 01/25/2023 Advance Directive Discussion due on 04/29/2023 Colorectal Cancer Screening due on 05/15/2023 Covid-19 Vaccine( season) due on 12/29/2023 Annual PCP Team Chronic Disease Visit due on 02/28/2024 Diabetes Screening due on 01/24/2026 Lipid Screening due on 01/25/2028 Prostate Cancer Screening Discussion due on 01/25/2028 DTaP,Tdap,Td Vaccine(5 - Td or Tdap) due on 10/26/2030 RSV Vaccine(1 - 1-dose 75+ series) due on 09/24/2031 Hepatitis C Screening Completed Influenza Vaccine Discontinued Data reviewed A/P ASSESSMENT/PLAN: 1. Encounter for Medicare annual wellness exam - ICD9: V70.0, ICD10: Z00.00 (primary diagnosis) - Counseled on healthy diet and regular exercise - Discussed need for and benefit of weight loss. BMI 30.49 kg/(m^2) - Follow up for annual exam in one year - Advised on Shingrix 2. Essential hypertension, benign - ICD9: 401.1, ICD10: I10 - Controlled - Continue current medications - Recommend home blood pressure monitoring, to bring results to next visit - Encouraged sodium restriction, DASH or Mediterranean diet - Recommend regular aerobic exercise - Discussed need for and benefit of weight loss. BMI 30.49 kg/(m^2) - COMPREHENSIVE METABOLIC PANEL - URINALYSIS, WITH MICROSCOPIC - LIPID PANEL, NONFASTING 3. Mixed hyperlipidemia - ICD9: 272.2, ICD10: E78.2 - Control undetermined, due for labs - Counseled on healthy diet and regular exercise - Discussed need for and benefit of weight loss. BMI 30.49 kg/(m^2) - COMPREHENSIVE METABOLIC PANEL - URINALYSIS, WITH MICROSCOPIC - LIPID PANEL, NONFASTING 4. Gastroesophageal reflux disease without esophagitis - ICD9: 530.81, ICD10: K21.9 - Continue treatment with Prilosec 20 mg every day Check - VITAMIN B12 - MAGNESIUM 5. Chronic gout without tophus, unspecified cause, unspecified site - ICD9: 274.02, ICD10: M1A.9XX0 Cont allopurinol. Check - URIC ACID 6. BPH with urinary obstruction - ICD9: 600.01, 599.69, ICD10: N40.1, N13.8 - stable clinically. 7. Elevated prostate specific antigen (PSA) - ICD9: 790.93, ICD10: R97.20 Check - PROSTATE SPECIFIC ANTIGEN, FREE 8. Advance directive discussed with patient - ICD9: V65.49, ICD10: Z71.89 - patient to bring in copies. 9. Medication management - ICD9: V58.69, ICD10: Z79.899 Check - VITAMIN B12 - VITAMIN D 25 HYDROXY - MAGNESIUM 10. Screening for depression - ICD9: V79.0, ICD10: Z13.31 - DEPRESSION SCREENING 11. Encounter for screening examination for other mental health and behavioral disorders - ICD9: V79.8, ICD10: Z13.39 - ANXIETY SCREENING 12. Screening for colon cancer - ICD9: V76.51, ICD10: Z12.11 - CONSULT TO GENERAL SURGERY 13. Body mass index (BMI) 30.0-30.9, adult - ICD9: V85.30, ICD10: Z68.30 Check - VITAMIN D 25 HYDROXY 14. Arthritis - ICD9: 716.90, ICD10: M19.90 - will try meloxicam. - discussed risk of gastric irritation and renal impairment. 15. Lead exposure - ICD9: V15.86, ICD10: Z77.011 - with Hx of shooting will check - LEAD BLOOD Requested Prescriptions Signed Prescriptions Disp Refills allopurinol (ZYLOPRIM) 300 mg tablet 90 tablet 1 Sig: Take 1 tablet by mouth once daily. lisinopril (ZESTRIL) 20 mg tablet 90 tablet 1 Sig: Take 1 tablet by mouth once daily. F/u in a year WAE sooner if needed. I spent a total of 40 minutes on the date of the service which included preparing to see the patient, [id number] patient care, completing clinical documentation, performing a medically appropriate examination, counseling and educating the patient/family/caregiver and ordering medications, tests, or procedures. Talha Fraga MD The sensitive examination was discussed with the Patient or Patient's Authorized Rn Nicu. As applicable, any other physician, advance practice provider, medical student, or other health professional student that will be observing or involved in the sensitive examination for educational or training purposes was discussed with the Patient or Authorized Rn Nicu. The Patient or Authorized Rn Nicu has agreed to proceed with the sensitive examination. (Sensitive examination includes inspection and/or palpation of the breasts, pelvis, prostate and anorectal regions) documented in this encounter [facility] 01-31-2024 Note HNO ID: [id number] Author: TALHA FRAGA MD Service: ? Author Type: Physician Type: Progress Notes Filed: 01/31/2024 10:16 Note Text: Arthur Diego is a 68 year old male here for a Medicare wellness visit. Medicare Health Risk Assessment General Health Good Exercise: Minutes/Day 0 min Exercise: Days/Week 0 days Alcohol: Daily Use Monthly or less Alcohol: Drinks/Day 1 or 2 Alcohol: 6 or more drinks Never Feel off balance No Concerns: Teeth/Dentures No Concerns: Sexual function No Troubled by feelings None of the above Frequency: Eating healthy diet Several days ADLs requiring help None of the above Safety precautions in home/vehicle No Smoke, vape, chews tobacco No Difficulty hearing No Difficulty seeing No Current Providers Specialists: I have reviewed specialist-related care of the patient in the medical record. Current care team: Patient Care Team: Talha Fraga MD as PCP - General (Family Medicine) Optho Medical/Family history review Reviewed and updated problem list, medical/surgical/family/social history, medications, and allergies. Opioid use review Opioid Medications (last 90 days) No data to display Anxiety/Depression screening PHQ-2 Score: 0 (Lower risk for depression) Recommendation: no further intervention at this time Cognitive screening Cognitive screening reviewed and No further action needed (score 3-5). Functional Observation Was the patient's Timed Up AND Go test unsteady or >= 12 seconds? No Advance Care Planning Surrogate decision maker and/or advance care plan documented Measurements BP 142/94 (BP Site: Left Arm, BP Position: Sitting, BP Cuff Size: Regular Adult) Pulse 62 Resp 16 Ht 173.4 cm (5' 8.25) Wt 91.6 kg (202 lb) BMI 30.49 kg/m? Vision Screening: Follows with optometry/ophthalmology Assessment/Plan Medicare annual wellness visit, subsequent (Z00.00) - Counseled on healthy diet and regular exercise - Fall avoidance information provided - Personalized prevention plan provided See Below Chief Complaint Patient presents with: Medicare Wellness Exam HPI Arthur Diego is a 68 year old male who presents here today for Chronic Medical Conditions. and Medicare Annual Visit. Patient with Hx of HTN, Hyperlipidemia, GERD, Gout, BPH, elevated PSA, spondylosis lumbar region as well as those reviewed and addressed below and in ROS. Patient has been doing well. No new issues or concerns. Past medical history, appointments, medications, allergies reviewed. Previous Medical History PAST MEDICAL HISTORY Diagnosis Date Advance directive discussed with patient 01/25/2022 Discussed 12/2021, declined packets Anterolisthesis of lumbar spine 01/24/2023 MRI: 11/06/2022: L5-S1 2-3 mm BENIGN HYPERTENSION 05/28/2005 BPH with urinary obstruction 11/22/2014 Carpal tunnel syndrome, bilateral 11/22/2014 Cerebral cysts Degenerative disc disease, cervical 11/22/2014 Elevated prostate specific antigen (PSA) 11/22/2014 Encounter for Medicare annual wellness exam 10/26/2020 Medicare Part B: 08/27/2021 Last done: 01/24/2023 Gastroesophageal reflux disease 11/22/2014 Gout 10/29/2007 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 Hiatal hernia 10/26/2020 Mixed hyperlipidemia 12/06/2015 Spondylosis of lumbar region without myelopathy or radiculopathy 11/21/2018 Well adult exam 10/26/2020 Last done: 10/26/2020 Previous Surgical History PAST SURGICAL HISTORY Procedure Laterality Date CARPAL TUNNEL Left 12/18/2019 COLONOSCOPY FLX DX W/COLLJ SPEC WHEN PFRMD 05/15/13 Colonoscopy NEUROPLASTY AND/TRANSPOSITION ULNAR NERVE ELBOW Left 12/18/2019 Family History FAMILY HISTORY Problem Relation Age of Onset Hypertension Mother other (pancreatic cancer [Other]) Father other (ovarian cancer [Other]) Sister None Sister None Brother other (dementia [Other]) Mother Patient Allergies ALLERGIES Allergen Reactions Ampicillin Hives Penicillins Hives Current Medications Current Outpatient Medications on File Prior to Visit Medication Sig lisinopril (ZESTRIL) 20 mg tablet Take 1 tablet by mouth once daily. allopurinol (ZYLOPRIM) 300 mg tablet Take 1 tablet by mouth once daily. Omeprazole Magnesium (PRILOSEC OTC) 20 mg tablet Take 1 tablet by mouth daily before breakfast. 1/2 hr before meal. COMPOUNDED PRESCRIPTION Prostate supplement - Revive - OTC Zinc (CHELATED ZINC) 50 mg tab Take 1 tablet by mouth once daily. Cholecalciferol, Vitamin D3, 5,000 unit cap Take 1 capsule by mouth once daily. (Patient taking differently: Take 5,000 Units by mouth once daily. Take (2) tablets daily) ascorbic acid (VITAMIN C) 500 mg tablet Take 1 tablet by mouth once daily. multivitamins w-minerals/lut(CENTRUM SILVER TAB) Take one(1) tablet daily. gluc samuels/chondro samuels a/vit c/mn(GLUCOSAMINE-CHONDROITIN MAX ST 500 MG-400 MG CAP) 2 tabs daily NIACIN 500 MG TAB Take one(1) tablet daily at bedtime. No current facility-adm (more content not included)... [facility] 07-16-2023 Miscellaneous Notes in office today and patient needs refill on his lisinopril. The following approved medication requests have been transmitted electronically. Requested Prescriptions Signed Prescriptions Disp Refills lisinopril (ZESTRIL) 20 mg tablet 90 tablet 1 Sig: Take 1 tablet by mouth once daily. Authorizing Provider: TALHA FRAGA allopurinol (ZYLOPRIM) 300 mg tablet 90 tablet 1 Sig: Take 1 tablet by mouth once daily. Authorizing Provider: TALHA FRAGA MD documented in this encounter [facility] 01-24-2023 Instructions Talha Fraga MD - 01/24/2023 1:52 PM EDT Bring home blood pressure machine with you to appt in [facility] documented in this encounter [facility] 01-24-2023 History of Present illness Narrative Medicare Yearly Visit Medical B eligibilty date 08/27/2021 Date of last exam 01/25/2023 PAST MEDICAL HISTORY PAST MEDICAL HISTORY Diagnosis Date Advance directive discussed with patient 01/25/2022 Discussed 12/2021, declined packets BENIGN HYPERTENSION 05/28/2005 BPH with urinary obstruction 11/22/2014 Carpal tunnel syndrome, bilateral 11/22/2014 Cerebral cysts Degenerative disc disease, cervical 11/22/2014 Elevated prostate specific antigen (PSA) 11/22/2014 Gastroesophageal reflux disease 11/22/2014 Gout 10/29/2007 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 Hiatal hernia 10/26/2020 Mixed hyperlipidemia 12/06/2015 Spondylosis of lumbar region without myelopathy or radiculopathy 11/21/2018 Well adult exam 10/26/2020 Last done: 10/26/2020 PAST SURGICAL HISTORY PAST SURGICAL HISTORY Procedure Laterality Date CARPAL TUNNEL Left 12/18/2019 COLONOSCOPY FLX DX W/COLLJ SPEC WHEN PFRMD 05/15/13 Colonoscopy NEUROPLASTY &/TRANSPOSITION ULNAR NERVE ELBOW Left 12/18/2019 ALLERGIES: Ampicillin and Penicillins Medications reviewed: Yes FAMILY HISTORY FAMILY HISTORY Problem Relation Age of Onset Hypertension Mother other (pancreatic cancer [Other]) Father other (ovarian cancer [Other]) Sister None Sister None Brother other (dementia [Other]) Mother SOCIAL HISTORY: SOCIAL HISTORY Social History Tobacco Use Smoking status: Never Smokeless tobacco: Never Substance Use Topics Alcohol use: Yes Comment: MITZY Washburn denies regular aerobic exercise. He watches his diet for sodium, low fat and low cholesterol some of the time. List of current specialists seen: none End of Live Planning discussed including patients advanced directive wishes: Yes I am willing to follow Arthur's advanced directives. PHQ-2 / Depression screen Depression Screening 11/21/2018 10/20/2020 01/25/2022 01/24/2023 PHQ-2 Score 0 0 0 0 Depression screening tool completed and reviewed. Based on score and interview, patient is not at risk for depression. Screening tool discussed with patient, and I recommended no further intervention at this time. Functional Ability/Safety Screen 1. Was the patient's timed Up and Go test unsteady or longer than 30 seconds? No 2. Does the patient need help with the phone, transportation, shopping,preparing meals, housework, laundry, medications or managing money? No 3. Does your home have rugs in the hallway(Y), lack of grab bars in the bathroom, lack of handrails on the stairs or have poor lighting? No Hearing Evaluation: normal PHYSICAL EXAM BP 140/90 (BP Site: Left Arm, BP Position: Sitting, BP Cuff Size: Large Adult) Pulse 64 Resp 16 Ht 174 cm (5' 8.5) Wt 92.1 kg (203 lb) BMI 30.42 kg/m Alert and oriented X 3: YES Body mass index is 30.42 kg/m . Visual acuity: see optho See below ASSESSMENT/PLAN: 67 year old male The following prevention plan was discussed during the office visit and provided to the patient: See below Talha Fraga MD Chief Complaint Patient presents with: Medicare Wellness Exam HPI Arthur Diego is a 66 year old male who presents here today for Welcome To Medicare Visit. Patient with Hx of HTN, Hyperlipidemia, GERD, Gout, BPH, elevated PSA, spondylosis lumbar region as well as those reviewed and addressed below and in ROS. Patient has been doing well. No issues or concerns. Past medical history, appointments, medications, allergies reviewed. 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 and Medicare Annual Visit. Patient with Hx of HTN, Hyperlipidemia, GERD, Gout, BPH, elevated PSA, spondylosis lumbar region as well as those reviewed and addressed below and in ROS. Patient indicated he wanted to discuss options on the lisinopril without the hydrocloriathizide Past medical history, appointments, medications, allergies reviewed. 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 Hiatal hernia 10/26/2020 Mixed hyperlipidemia 12/06/2015 Spondylosis of lumbar region without myelopathy or radiculopathy 11/21/2018 Well adult exam 10/26/2020 Last done: 10/26/2020 Previous Surgical History PAST SURGICAL HISTORY Procedure Laterality Date CARPAL TUNNEL Left 12/18/2019 COLONOSCOPY FLX DX W/COLLJ SPEC WHEN PFRMD 05/15/13 Colonoscopy NEUROPLASTY &/TRANSPOSITION ULNAR NERVE ELBOW Left 12/18/2019 Family History FAMILY HISTORY Problem Relation Age of Onset Hypertension Mother other (pancreatic cancer [Other]) Father other (ovarian cancer [Other]) Sister None Sister None Brother other (dementia [Other]) Mother Patient Allergies ALLERGIES Allergen Reactions Ampicillin Hives Penicillins Hives Current Medications Current Outpatient Medications on File Prior to Visit Medication Sig etodolac (LODINE) 300 mg capsule Take 1 capsule by mouth twice daily. allopurinol (ZYLOPRIM) 300 mg tablet Take 1 tablet by mouth once daily. lisinopril-hydroCHLOROthiazide (ZESTORETIC) 10-12.5 mg per tablet Take 1 tablet by mouth once daily. mometasone (ELOCON) 0.1 % cream Apply 1 application to affected area once daily. (Patient not taking: Reported on 01/25/2022) COMPOUNDED PRESCRIPTION Prostate supplement - Revive - OTC Zinc (CHELATED ZINC) 50 mg tab Take 1 tablet by mouth once daily. Cholecalciferol, Vitamin D3, 5,000 unit cap Take 1 capsule by mouth once daily. ascorbic acid (VITAMIN C) 500 mg tablet Take 1 tablet by mouth once daily. multivitamins w-minerals/lut(CENTRUM SILVER TAB) Take one(1) tablet daily. gluc samuels/chondro samuels a/vit c/mn(GLUCOSAMINE-CHONDROITIN MAX ST 500 MG-400 MG CAP) 2 tabs daily NIACIN 500 MG TAB Take one(1) tablet daily at bedtime. No current facility-administered medications on file prior to visit. Social History Social History Tobacco Use Smoking status: Never Smokeless tobacco: Never Substance Use Topics Alcohol use: Yes Comment: RARE Review of Symptoms REVIEW OF SYSTEMS GENERAL: No weight loss, malaise or fevers HEENT: Negative for frequent or significant headaches, No changes in hearing or vision, no nose bleeds or other nasal problems NECK: Negative for lumps, goiter, pain and significant neck swelling RESPIRATORY: Negative for cough, hemoptysis, wheezing, COPD, dyspnea or shortness of breath CARDIOVASCULAR: Negative for chest pain, leg swelling, hypertension, CHF or palpitations GI: No nausea, vomiting, or diarrhea, No frequent heartburn or reflux symptoms, and no blood : No history of dysuria, frequency or blood MUSCULOSKELETAL: Negative for joint pain or swelling, back pain or muscle pain SKIN: Negative for lesions, rash, and itching PSYCH: Negative for sleep disturbance, mood disorder and recent psychosocial stressors HEMATOLOGY/LYMPHOLOGY: Negative for prolonged bleeding, bruising easily or swollen nodes ENDOCRINE: Negative for cold or heat intolerance, polyuria, polydipsia and goiter NEURO: No history of headaches, syncope, paralysis, seizures or tremors EXAM: BP 140/90 (BP Site: Left Arm, BP Position: Sitting, BP Cuff Size: Large Adult) Pulse 64 Resp 16 Ht 174 cm (5' 8.5) Wt 92.1 kg (203 lb) BMI 30.42 kg/m BP 122/84 Pulse 64 Resp 16 Ht 174 cm (5' 8.5) Wt 92.1 kg (203 lb) BMI 30.42 kg/m Last 5 Encounter Wt Readings: Date: Wt: 01/24/2023 92.1 kg (203 lb) 01/25/2022 91.6 kg (202 lb) 04/03/2021 93.3 kg (205 lb 9.6 oz) 01/20/2021 93 kg (205 lb) 10/26/2020 89.4 kg (197 lb) General Appearance: Well appearing, alert, in no acute distress, well-hydrated, well nourished. and Overweight. Skin: Skin color, texture, turgor normal, no suspicious rashes or lesions. Head: Normocephalic, no masses, lesions, tenderness or abnormalities. Eyes: Anicteric sclera. Pupils are equally round and reactive to light. Extraocular movements are intact. . Ears: External ears normal, canals clear. Nose/Sinuses: Nares normal, septum midline, mucosa normal, no drainage or sinus tenderness. Oropharynx: Lips, mucosa, and tongue normal, teeth and gums normal, oropharynx normal. Neck: Supple, no adenopathy; thyroid symmetric, normal size, no bruits. Lungs: Lungs clear to auscultation. No wheezing, rhonchi, rales.. Heart: RRR without murmur, gallop, or rubs. No ectopy. Abdomen: Normal abdominal exam, Abdomen soft, non-tender. Bowel sounds normal. No masses, organomegaly. Extremities: No deformities, edema, skin discoloration, Good capillary refill. . Musculoskeletal: Muscular strength intact, No joint swelling, deformity, or tenderness. Peripheral Pulses: Normal. Neurologic: Gait normal. Reflexes normal and symmetric. Sensation to light touch and crainal nerves 2-12 intact.. Genitalia: Normal, Penis normal. No urethral discharge. Scrotum normal to palpation. No hernia.. Rectal: Normal exam. Prostate enlarged with smooth firm capsule. Health Maintenance List Advance Directive Discussion due on 04/29/2022 Depression Assessment Never done Shingrix Vaccine(1 of 2) due on 01/25/2023 Covid-19 Vaccine(2 - Booster for Magda series) due on 01/25/2023 Pneumococcal Vaccine: 65+(1 - PCV) due on 01/25/2023 Annual PCP Team Chronic Disease Visit due on 01/25/2023 BP Controlled (<130/80) due on 01/25/2023 Colorectal Cancer Screening due on 05/15/2023 Diabetes Screening due on 02/21/2025 Lipid Screening due on 02/21/2027 Prostate Cancer Screening Discussion due on 02/21/2027 DTaP,Tdap,Td Vaccine(5 - Td or Tdap) due on 10/26/2030 Hepatitis C Screening Completed Influenza Vaccine Discontinued Data reviewed Component Latest Ref Rng & Units 02/21/2022 Protein, Total 6.3 - 8.0 g/dL 6.5 Albumin 3.9 - 4.9 g/dL 4.6 Calcium 8.5 - 10.2 mg/dL 9.4 Bilirubin, Total 0.2 - 1.3 mg/dL 0.5 Alkaline Phosphatase 38 - 113 U/L 87 AST 14 - 40 U/L 27 ALT 10 - 54 U/L 30 Glucose 74 - 99 mg/dL 87 BUN 9 - 24 mg/dL 15 Creatinine 0.73 - 1.22 mg/dL 0.90 Sodium 136 - 144 mmol/L 136 Potassium 3.7 - 5.1 mmol/L 3.9 Chloride 97 - 105 mmol/L 99 CO2 22 - 30 mmol/L 29 Anion Gap 9 - 18 mmol/L 8 (L) eGFR >=60 mL/min/1.73m 95 Color Yellow Yellow Clarity Clear Clear Glucose, Urine Negative Negative Bilirubin, Urine Negative Negative Ketones, Urine Negative Negative Specific [place], Ur 1.005 - 1.030 1.021 Hemoglobin/Blood,Ur Negative Negative pH, Urine 5.0 - 8.0 6.0 Protein, Urine Negative Negative Urobilinogen Negative Negative Nitrites Negative Negative Leukest Negative Negative WBC, Urine 0-5 /HPF 0-5 /HPF RBC, Urine 0-3 /HPF 0-3 /HPF Total Cholesterol, Nonfasting <200 mg/dL 159 Triglycerides, Nonfasting <150 mg/dL 411 (H) HDL Cholesterol, Nonfasting >39 mg/dL 26 (L) LDL Cholesterol, Nonfasting Non HDL Cholesterol, Nonfasting <130 mg/dL 133 (H) VLDL Cholesterol, Nonfasting Total Chol/HDL Ratio, Nonfasting <5.10 mg/dL 6.12 (H) LDL/HDL Ratio, Nonfasting PSA <2.60 ng/mL 3.76 (H) PSA, Percent Free % 23 Uric Acid 4.0 - 8.1 mg/dL 4.5 A/P ASSESSMENT/PLAN: 1. Encounter for Medicare annual wellness exam - ICD9: V70.0, ICD10: Z00.00 (primary diagnosis) - Counseled on healthy diet and regular exercise - Discussed need for and benefit of weight loss. BMI 30.42 kg/(m^2) - Follow up for annual exam in one year 2. Essential hypertension, benign - ICD9: 401.1, ICD10: I10 - Controlled - Recommend home blood pressure monitoring, to bring results to next visit - Encouraged sodium restriction, DASH or Mediterranean diet - Recommend regular aerobic exercise - will stop the Zestoretic and change to lisinopril at 20 mg a day. F/u in a month for HTN check Check - COMP METABOLIC PANEL - URINALYSIS, WITH MICROSCOPIC - LIPID PANEL, NONFASTING 3. Mixed hyperlipidemia - ICD9: 272.2, ICD10: E78.2 - await labs - Counseled on healthy diet and regular exercise - Discussed need for and benefit of weight loss. BMI 30.42 kg/(m^2) Check - COMP METABOLIC PANEL - URINALYSIS, WITH MICROSCOPIC - LIPID PANEL, NONFASTING 4. Gastroesophageal reflux disease without esophagitis - ICD9: 530.81, ICD10: K21.9 - Continue treatment with Prilosec OTC 20 mg every day prn 5. Chronic gout without tophus, unspecified cause, unspecified site - ICD9: 274.02, ICD10: [id number].[id number] Cont allopurinol Check - URIC ACID BLOOD 6. BPH with urinary obstruction - ICD9: 600.01, 599.69, ICD10: N40.1, N13.8 - stable 7. Elevated prostate specific antigen (PSA) - ICD9: 790.93, ICD10: R97.20 Check - PSA FREE 8. Advance directive discussed with patient - ICD9: V65.49, ICD10: Z71.89 - patient declined packets 9. Medication management - ICD9: V58.69, ICD10: Z79.899 Check - VITAMIN B12 BLOOD - MAGNESIUM BLD 10. Anterolisthesis of lumbar spine - ICD9: 756.12, ICD10: M43.16 Check - XR LUMBAR LIMITED 2V FLEX/EXT Requested Prescriptions Signed Prescriptions Disp Refills allopurinol (ZYLOPRIM) 300 mg tablet 90 tablet 1 Sig: Take 1 tablet by mouth once daily. Omeprazole Magnesium (PRILOSEC OTC) 20 mg tablet Sig: Take 1 tablet by mouth daily before breakfast. 1/2 hr before meal. lisinopril (ZESTRIL) 20 mg tablet 90 tablet 1 Sig: Take 1 tablet by mouth once daily. F/u in a month HTN with home BP machine. F/u in year extensive. I spent a total of 40 minutes on the date of the service which included preparing to see the patient, [id number] patient care, completing clinical documentation, performing a medically appropriate examination, counseling and educating the patient/family/caregiver and ordering medications, tests, or procedures. Talha Fraga MD documented in this encounter [facility] 10-04-2022 Miscellaneous Notes Images from the original note were not included. PA was approved 04/28/23. Patient was left detailed message on confidential vm Xiomy Muller Ma Prior Authorization has been completed online at [email or web address] for [email or web address], will await response. GARCIAS- [id number] Please keep encounter open until final decision has been received and documented from insurance company. Xiomy Muller MA documented in this encounter [facility] 10-02-2022 Miscellaneous Notes This patient gave consent to this Medical Advice Message and is aware that it may result in a bill to their insurance, as well as the possibility of receiving a bill for a copay and/or deductible. They are an established patient, but are not seeking information exclusively about a problem treated during an in person or video visit in the last seven days. I did not recommend an in person or video visit within seven days of my reply. See the [employer] message reply for my assessment and plan. I spent a total of 9 minutes reviewing the patient's prior medical records and current request for medical advice, prescribing medications or ordering tests (if applicable), replying to the patient, and documenting the encounter. The following approved medication requests have been transmitted electronically. Requested Prescriptions Pending Prescriptions Disp Refills etodolac (LODINE) 300 mg capsule 60 capsule 5 Sig: Take 1 capsule by mouth twice daily. Talha Fraga MD documented in this encounter [facility] 07-17-2022 Miscellaneous Notes Patient has been identified by name and date of : Yes Patient phones for refill(s): Requested Prescriptions Pending Prescriptions Disp Refills celecoxib (CELEBREX) 200 mg capsule 180 capsule 1 Sig: Take 1 capsule by mouth twice daily. allopurinol (ZYLOPRIM) 300 mg tablet 90 tablet 1 Sig: Take 1 tablet by mouth once daily. lisinopril-hydroCHLOROthiazide (ZESTORETIC) 10-12.5 mg per tablet 90 tablet 1 Sig: Take 1 tablet by mouth once daily. Date of last office visit in primary care: 01/25/2022 Next appointment scheduled 01/24/2023 Please advise. Thank you. Khloe Colon LPN documented in this encounter [facility] 01-25-2022 Instructions Talha Fraga MD - 01/25/2022 1:20 PM EDT PCV -20 for pneumonia vaccine. Consider getting the shingrix vaccine for the prevention of shingles from a local pharmacy documented in this encounter [facility] 01-25-2022 History of Present illness Narrative Medicare Yearly Visit Medical B eligibilty date 08/27/2021 Date of last exam NA PAST MEDICAL HISTORY Diagnosis Date Advance directive discussed with patient 01/25/2022 Discussed 12/2021, declined packets BENIGN HYPERTENSION 05/28/2005 BPH with urinary obstruction 11/22/2014 Carpal tunnel syndrome, bilateral 11/22/2014 Cerebral cysts Degenerative disc disease, cervical 11/22/2014 Elevated prostate specific antigen (PSA) 11/22/2014 Gastroesophageal reflux disease 11/22/2014 Gout 10/29/2007 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 Hiatal hernia 10/26/2020 Mixed hyperlipidemia 12/06/2015 Spondylosis of lumbar region without myelopathy or radiculopathy 11/21/2018 Well adult exam 10/26/2020 Last done: 10/26/2020 PAST SURGICAL HISTORY Procedure Laterality Date CARPAL TUNNEL Left 12/18/2019 COLONOSCOPY FLX DX W/COLLJ SPEC WHEN PFRMD 05/15/13 Colonoscopy NEUROPLASTY &/TRANSPOSITION ULNAR NERVE ELBOW Left 12/18/2019 ALLERGIES: Ampicillin and Penicillins Medications reviewed: Yes FAMILY HISTORY Problem Relation Age of Onset Hypertension Mother other (pancreatic cancer [Other]) Father other (ovarian cancer [Other]) Sister None Sister None Brother other (dementia [Other]) Mother SOCIAL HISTORY: Social History Tobacco Use Smoking status: Never Smokeless tobacco: Never Substance Use Topics Alcohol use: Yes Comment: MITZY Washburn denies regular aerobic exercise. He watches his diet for sodium, low fat and low cholesterol some of the time. List of current specialists seen: none End of Live Planning discussed including patients advanced directive wishes: Yes I am willing to follow Arthur's advanced directives. PHQ-2 / Depression screen Depression Screening 12/20/2016 11/21/2018 10/20/2020 01/25/2022 PHQ-2 Score 2 0 0 0 Depression screening tool completed and reviewed. Based on score and interview, patient is not at risk for depression. Screening tool discussed with patient, and I recommended no further intervention at this time. Functional Ability/Safety Screen 1. Was the patient's timed Up and Go test unsteady or longer than 30 seconds? No 2. Does the patient need help with the phone, transportation, shopping,preparing meals, housework, laundry, medications or managing money? No 3. Does your home have rugs in the hallway(Y), lack of grab bars in the bathroom, lack of handrails on the stairs or have poor lighting? No Hearing Evaluation: normal PHYSICAL EXAM BP 126/86 (BP Site: Left Arm, BP Position: Sitting, BP Cuff Size: Large Adult) Pulse 72 Resp 16 Ht 172.7 cm (5' 8) Wt 91.6 kg (202 lb) BMI 30.71 kg/m Alert and oriented X 3: YES Body mass index is 30.71 kg/m . Visual acuity: see optho See below ASSESSMENT/PLAN: 66 year old male The following prevention plan was discussed during the office visit and provided to the patient: See below Talha Fraga MD Chief Complaint Patient presents with: Medicare Wellness Exam HPI Arthur Diego is a 66 year old male who presents here today for Welcome To Medicare Visit. Patient with Hx of HTN, Hyperlipidemia, GERD, Gout, BPH, elevated PSA, spondylosis lumbar region as well as those reviewed and addressed below and in ROS. Patient has been doing well. No issues or concerns. Past medical history, appointments, medications, allergies reviewed. 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 Hiatal hernia 10/26/2020 Hyperlipidemia 04/28/2010 Mixed hyperlipidemia 12/06/2015 Spondylosis of lumbar region without myelopathy or radiculopathy 11/21/2018 Well adult exam 10/26/2020 Last done: 10/26/2020 Previous Surgical History PAST SURGICAL HISTORY Procedure Laterality Date CARPAL TUNNEL Left 12/18/2019 COLONOSCOPY FLX DX W/COLLJ SPEC WHEN PFRMD 05/15/13 Colonoscopy NEUROPLASTY &/TRANSPOSITION ULNAR NERVE ELBOW Left 12/18/2019 Family History FAMILY HISTORY Problem Relation Age of Onset Hypertension Mother other (pancreatic cancer [Other]) Father other (ovarian cancer [Other]) Sister None Sister None Brother other (dementia [Other]) Mother Patient Allergies ALLERGIES Allergen Reactions Ampicillin Hives Penicillins Hives Current Medications Current Outpatient Medications on File Prior to Visit Medication Sig celecoxib (CELEBREX) 200 mg capsule Take 1 capsule by mouth once daily. allopurinol (ZYLOPRIM) 300 mg tablet Take 1 tablet by mouth once daily. lisinopril-hydroCHLOROthiazide (PRINZIDE,ZESTORETIC) 10-12.5 mg per tablet Take 1 tablet by mouth once daily. mometasone (ELOCON) 0.1 % cream Apply 1 application to affected area once daily. COMPOUNDED PRESCRIPTION Prostate supplement - Revive - OTC Zinc (CHELATED ZINC) 50 mg tab Take 1 tablet by mouth once daily. Cholecalciferol, Vitamin D3, 5,000 unit cap Take 1 capsule by mouth once daily. ascorbic acid (VITAMIN C) 500 mg tablet Take 1 tablet by mouth once daily. multivitamins w-minerals/lut(CENTRUM SILVER TAB) Take one(1) tablet daily. gluc samuels/chondro samuels a/vit c/mn(GLUCOSAMINE-CHONDROITIN MAX ST 500 MG-400 MG CAP) 2 tabs daily NIACIN 500 MG TAB Take one(1) tablet daily at bedtime. No current facility-administered medications on file prior to visit. Social History Social History Tobacco Use Smoking status: Never Smokeless tobacco: Never Substance Use Topics Alcohol use: Yes Comment: RARE Review of Symptoms REVIEW OF SYSTEMS GENERAL: No weight loss, malaise or fevers HEENT: Negative for frequent or significant headaches, No changes in hearing or vision, no nose bleeds or other nasal problems NECK: Negative for lumps, goiter, pain and significant neck swelling RESPIRATORY: Negative for cough, hemoptysis, wheezing, COPD, dyspnea or shortness of breath CARDIOVASCULAR: Negative for chest pain, leg swelling, hypertension, CHF or palpitations GI: No nausea, vomiting, or diarrhea and No frequent heartburn or reflux symptoms. No blood : No history of dysuria, blood MUSCULOSKELETAL: Negative for joint pain or swelling, back pain or muscle pain SKIN: Negative for lesions, rash, and itching PSYCH: Negative for sleep disturbance, mood disorder and recent psychosocial stressors HEMATOLOGY/LYMPHOLOGY: Negative for prolonged bleeding, bruising easily or swollen nodes ENDOCRINE: Negative for cold or heat intolerance, polyuria, polydipsia and goiter NEURO: No history of headaches, syncope, paralysis, seizures or tremors EXAM: BP 126/86 (BP Site: Left Arm, BP Position: Sitting, BP Cuff Size: Large Adult) Pulse 72 Resp 16 Ht 172.7 cm (5' 8) Wt 91.6 kg (202 lb) BMI 30.71 kg/m BP 128/82 Pulse 72 Resp 16 Ht 172.7 cm (5' 8) Wt 91.6 kg (202 lb) BMI 30.71 kg/m Last 4 Encounter Wt Readings: Date: Wt: 01/25/2022 91.6 kg (202 lb) 04/03/2021 93.3 kg (205 lb 9.6 oz) 01/20/2021 93 kg (205 lb) 10/26/2020 89.4 kg (197 lb) General Appearance: Well appearing, alert, in no acute distress, well-hydrated, well nourished.. Skin: Skin color, texture, turgor normal, no suspicious rashes or lesions. Head: Normocephalic, no masses, lesions, tenderness or abnormalities. Eyes: Anicteric sclera. Pupils are equally round and reactive to light. Extraocular movements are intact. . Ears: External ears, TM's normal, canals clear. Neck: Supple, no adenopathy; thyroid symmetric, normal size, no bruits. Lungs: Lungs clear to auscultation. No wheezing, rhonchi, rales.. Heart: RRR without murmur, gallop, or rubs. No ectopy. Abdomen: Normal abdominal exam, Abdomen soft, non-tender. Bowel sounds normal. No masses, organomegaly. Extremities: No deformities, edema, skin discoloration, clubbing or cyanosis. Good capillary refill. . Musculoskeletal: No joint swelling, deformity, or tenderness. Peripheral Pulses: Normal. Neurologic: Gait normal. Reflexes normal and symmetric. Sensation gto light touch and cn 2-12 intact.. Genitalia: Normal, Penis normal. No urethral discharge. Scrotum normal to palpation. No hernia.. Rectal: Normal exam. Prostate enlarged but smooth firm capsule. Health Maintenance List HIV SCREENING Never done SHINGRIX VACCINE(1 of 2) Never done COVID-19 VACCINE(2 - Booster for Magda series) due on 12/15/2020 DEPRESSION ASSESSMENT Never done ADVANCE DIRECTIVE DISCUSSION Never done PNEUMOCOCCAL: 65+(1 - PCV) Never done ANNUAL PCP TEAM CHRONIC DISEASE VISIT due on 10/26/2021 BP CONTROLLED (<130/80) due on 10/26/2021 INFLUENZA(1) due on 12/28/2021 COLORECTAL CANCER SCREENING due on 05/15/2023 DIABETES SCREEN due on 10/20/2023 LIPID SCREEN due on 10/19/2025 PROSTATE CANCER SCREENING DISCUSSION due on 10/19/2025 DTAP,TDAP,TD(5 - Td or Tdap) due on 10/26/2030 HEPATITIS C SCREENING Completed Data reviewed Component Latest Ref Rng & Units 10/19/2020 WBC 3.70 - 11.00 k/uL 6.81 RBC 4.20 - 6.00 m/uL 4.83 Hemoglobin 13.0 - 17.0 g/dL 15.0 Hematocrit 39.0 - 51.0 % 44.3 MCV 80.0 - 100.0 fL 91.7 MCH 26.0 - 34.0 pG 31.1 MCHC 30.5 - 36.0 g/dL 33.9 RDW-CV 11.5 - 15.0 % 14.1 Platelet Count 150 - 400 k/uL 220 MPV 9.0 - 12.7 fL 9.4 Neut% % 62.3 Abs Neut (ANC) 1.45 - 7.50 k/uL 4.22 Lymph% % 28.5 Abs Lymph 1.00 - 4.00 k/uL 1.94 [place]% % 6.2 Abs [place] <0.87 k/uL 0.42 Eosin% % 2.3 Abs Eosin <0.46 k/uL 0.16 Baso% % 0.7 Abs Baso <0.11 k/uL 0.05 Nucleated Reds 0 /100 WBC 0.0 Absolute nRBC <0.01 k/uL <0.01 Diff Type Auto Diff Protein, Total 6.3 - 8.0 g/dL 6.7 Albumin 3.9 - 4.9 g/dL 4.5 Calcium 8.5 - 10.2 mg/dL 9.5 Bilirubin, Total 0.2 - 1.3 mg/dL 0.6 Alkaline Phosphatase 38 - 113 U/L 70 AST 14 - 40 U/L 26 Glucose 74 - 99 mg/dL 86 BUN 9 - 24 mg/dL 14 Creatinine 0.73 - 1.22 mg/dL 0.84 Sodium 136 - 144 mmol/L 139 Potassium 3.7 - 5.1 mmol/L 3.7 Chloride 97 - 105 mmol/L 104 CO2 22 - 30 mmol/L 26 Anion Gap 9 - 18 mmol/L 9 ALT 10 - 54 U/L 30 eGFR- >60 eGFR-All Other Races . >60 Color Yellow Yellow Clarity Clear Clear Glucose, Urine Negative mg/dL Negative Bilirubin, Urine Negative Negative Ketones, Urine Negative Negative Specific [place], Ur 1.005 - 1.030 1.023 Hemoglobin/Blood,Ur Negative Negative pH, Urine 5.0 - 8.0 7.0 Protein, Urine Negative 1+ (A) Urobilinogen Negative E.U./dL Negative Nitrites Negative Negative Leukest Negative Negative Comment SEE COMMENT Urine [place] Comment SEE COMMENT WBC, Urine 0 - 5 /HPF 0-5 RBC, Urine 0 - 3 /HPF 0-3 Cast 0 /LPF SEE COMMENT (A) Total Cholesterol, Nonfasting <200 mg/dL 169 Triglycerides, Nonfasting <150 mg/dL 135 HDL Cholesterol, Nonfasting >39 mg/dL 33 (L) LDL Cholesterol, Nonfasting <100 mg/dL 109 (H) Non HDL Cholesterol, Nonfasting <130 mg/dL 136 (H) VLDL Cholesterol, Nonfasting <30 mg/dL 27 Total Chol/HDL Ratio, Nonfasting <5.10 mg/dL 5.12 (H) LDL/HDL Ratio, Nonfasting <2.54 mg/dL 3.30 (H) Hemoglobin A1C 4.3 - 5.6 % 5.5 Estimated Average Glucose mg/dL 111 PSA 0.00 - 2.59 ng/mL 4.37 (H) Uric Acid 4.0 - 8.1 mg/dL 4.4 A/P ASSESSMENT/PLAN: 1. Medicare annual wellness visit, initial - ICD9: V70.0, ICD10: Z00.00 (primary diagnosis) - Counseled on healthy diet and regular exercise - Discussed need for and benefit of weight loss. BMI 30.71 kg/(m^2) - Follow up for annual exam in one year - discussed vaccines. Patient will consider. 2. Essential hypertension, benign - ICD9: 401.1, ICD10: I10 - good control - Continue current medication(s) - Recommended regular aerobic exercise. - Recommend home blood pressure monitoring, to bring results in on next visit - Goal of BP <130/80 - LISINOPRIL 10 MG-HYDROCHLOROTHIAZIDE 12.5 MG TABLET Check - COMP METABOLIC PANEL - URINALYSIS, WITH MICROSCOPIC - LIPID PANEL, NONFASTING 3. Mixed hyperlipidemia - ICD9: 272.2, ICD10: E78.2 - to be determined upon return of lab results - Encouraged following a low fat, low cholesterol diet. - Discussed the benefits of regular aerobic exercise and weight loss. - Encouraged following a low carbohydrate, healthy oil intake diet. - Continue current therapy. Check - COMP METABOLIC PANEL - URINALYSIS, WITH MICROSCOPIC - LIPID PANEL, NONFASTING 4. Gastroesophageal reflux disease without esophagitis - ICD9: 530.81, ICD10: K21.9 - controlled with diet. 5. Chronic gout without tophus, unspecified cause, unspecified site - ICD9: 274.02, ICD10: M1A.9XX0 Cont - ALLOPURINOL 300 MG TABLET Check - URIC ACID BLOOD 6. Elevated prostate specific antigen (PSA) - ICD9: 790.93, ICD10: R97.20 Check - PSA FREE 7. BPH with urinary obstruction - ICD9: 600.01, 599.69, ICD10: N40.1, N13.8 Clinically stable no changes. 8. Advance directive discussed with patient - ICD9: V65.49, ICD10: Z71.89 - patient declined packets but plans to work on this. Requested Prescriptions Signed Prescriptions Disp Refills celecoxib (CELEBREX) 200 mg capsule 180 capsule 1 Sig: Take 1 capsule by mouth twice daily. allopurinol (ZYLOPRIM) 300 mg tablet 90 tablet 1 Sig: Take 1 tablet by mouth once daily. lisinopril-hydroCHLOROthiazide (PRINZIDE,ZESTORETIC) 10-12.5 mg per tablet 90 tablet 1 Sig: Take 1 tablet by mouth once daily. F/u in a year or sooner if issues. I spent a total of 40 minutes on the date of the service which included preparing to see the patient, [id number] patient care, completing clinical documentation, performing a medically appropriate examination, counseling and educating the patient/family/caregiver and ordering medications, tests, or procedures. Talha Fraga MD documented in this encounter [facility] Evaluation note Diagnosis Medicare annual wellness visit, initial- Primary Routine general medical examination at a [facility] Essential hypertension, benign Mixed hyperlipidemia Gastroesophageal reflux disease without esophagitis Esophageal reflux Chronic gout without tophus, unspecified cause, unspecified site Elevated prostate specific antigen (PSA) BPH with urinary obstruction Hypertrophy of prostate with urinary obstruction and other lower urinary tract symptoms (LUTS) Advance directive discussed with patient Other specified counseling [facility] Diagnosis Chronic gout without tophus, unspecified cause, unspecified site Essential hypertension, benign [facility] Diagnosis Spondylosis of lumbar region without myelopathy or radiculopathy Lumbosacral spondylosis without myelopathy [facility] Diagnosis Encounter for Medicare annual wellness exam- Primary Routine general medical examination at a [facility] Essential hypertension, benign Mixed hyperlipidemia Gastroesophageal reflux disease without esophagitis Esophageal reflux Chronic gout without tophus, unspecified cause, unspecified site BPH with urinary obstruction Hypertrophy of prostate with urinary obstruction and other lower urinary tract symptoms (LUTS) Elevated prostate specific antigen (PSA) Advance directive discussed with patient Other specified counseling Medication management Encounter for long-term (current) use of other medications Anterolisthesis of lumbar spine [facility] Anterolisthesis of lumbar spine [facility] Encounter for Medicare annual wellness exam- Primary Routine general medical examination at a [facility] Essential hypertension, benign Mixed hyperlipidemia Gastroesophageal reflux disease without esophagitis Esophageal reflux Chronic gout without tophus, unspecified cause, unspecified site BPH with urinary obstruction Hypertrophy of prostate with urinary obstruction and other lower urinary tract symptoms (LUTS) Elevated prostate specific antigen (PSA) Advance directive discussed with patient Other specified counseling Medication management Encounter for long-term (current) use of other medications Screening for depression Encounter for screening examination for other mental health and behavioral disorders Screening for colon cancer Special screening for malignant neoplasms, colon Body mass index (BMI) 30.0-30.9, adult Arthritis Arthropathy, unspecified, site unspecified Lead exposure Personal history of contact with and (suspected) exposure to lead documented in this encounter [facility] note* Diagnosis Toxic effect of lead, undetermined intent, initial encounter- Primary Microscopic hematuria High vitamin D level Hypervitaminosis D documented in this encounter [facility] note* Diagnosis Screening for colon cancer- Primary Special screening for malignant neoplasms, colon Gastroesophageal reflux disease, unspecified whether esophagitis present Belching Flatulence, eructation, and gas pain Hiatal hernia Diaphragmatic hernia without mention of obstruction or gangrene documented in this encounter [facility] note* Diagnosis Encounter for screening for malignant neoplasm of colon- Primary Special screening for malignant neoplasms, colon Gastroesophageal reflux disease, unspecified whether esophagitis present Belching Flatulence, eructation, and gas pain Screening for colon cancer Special screening for malignant neoplasms, colon documented in this encounter [facility] note* Diagnosis Toxic effect of lead, undetermined intent, sequela- Primary High vitamin D level Hypervitaminosis D documented in this encounter [facility] note* Diagnosis High vitamin D level- Primary Hypervitaminosis D documented in this encounter [facility] note* Diagnosis Fever, unspecified fever cause- Primary Influenza A Influenza with other respiratory manifestations documented in this encounter [facility] note* Diagnosis High vitamin D level- Primary Hypervitaminosis D documented in this encounter [facility] for referral (narrative)* Diagnostic Procedure Only (Routine) - Closed Specialty Diagnoses / Procedures Referred By Contac t Referred To Contact XR IMAGING Diagnoses Anterolisthesis of lumbar spine Procedures XR LUMBAR LIMITED 2V FLEX/EXT RADEX SPINE LUMBOSACRAL 2/3 VIEWS Talha Fraga MD [facility] [place] [address] [place] [id number] Referral ID Status Reason Start Date Expiration Date V isits Requested Visits Authorized [id number] Closed Auto-Generate d Referral 01/24/2023 02/23/2024 1 1 [facility] for referral (narrative)* Diagnostic Procedure Only (Routine) - Closed Specialty Diagnoses / Procedures Referred By Contac t Referred To Contact XR IMAGING Diagnoses Anterolisthesis of lumbar spine Procedures XR LUMBAR LIMITED 2V FLEX/EXT RADEX SPINE LUMBOSACRAL 2/3 VIEWS Talha Fraga MD [address] [place] [address] Xr Imaging [id number] Referral ID Status Reason Start Date Expiration Date V isits Requested Visits Authorized [id number] Closed Auto-Generate d Referral 01/24/2023 02/23/2024 1 1 [facility] for referral (narrative)* Outpatient Procedure (Routine) - Authorized Specialty Diagnoses / Procedures Referred By Contac t Referred To Contact [facility] Diagnoses Screening for colon cancer Procedures COLONOSCOPY SCREENING COLONOSCOPY FLX DX W/COLLJ SPEC WHEN Ivonne Gray APRN.[employer]UC[employer] TEACHER [address] [id number] [facility] [place] [phone] Referral ID Status Reason Start Date Expiration Date Visits Requested Visits Authorized [id number] Authorized Auto-Generat ed Referral 02/03/2024 02/02/2025 1 1 * Outpatient Procedure (Routine) - Authorized Specialty Diagnoses / Procedures Referred By Contac t Referred To Contact [facility] Diagnoses Gastroesophageal reflux disease, unspecified whether esophagitis present Belching Procedures EGD DIAGNOSTIC ESOPHAGOGASTRODUODENOSC OPY TRANSORAL DIAGNOSTIC Ivonne Balderas APRN.H[employer]CHO[employer] SPECIAL EDUCATION TEACHER [address] [facility] [place] [phone] [facility] Disease [place] [address] [phone] Referral ID Status Reason Start Date Expiration Date Visits Requested Visits Authorized [id number] Authorized Auto-Generat ed Referral 02/03/2024 02/02/2025 1 1 [facility] for referral (narrative)* Outpatient Procedure (Routine) - Closed Specialty Diagnoses / Procedures Referred By Contac t Referred To Contact [facility] Diagnoses Screening for colon cancer Procedures COLONOSCOPY SCREENING COLONOSCOPY FLX DX W/COLLJ SPEC WHEN PFIvonne Blanca APRN.H[employer] EDUCATION TEACHER [address] [facility] [place] [address] [address] Referral ID Status Reason Start Date Expiration Date V isits Requested Visits Authorized [id number] Closed Auto-Generate d Referral 02/03/2024 02/02/2025 1 1 * Outpatient Procedure (Routine) - Closed Specialty Diagnoses / Procedures [facility] Referred To Contact [facility] Diagnoses Gastroesophageal reflux disease, unspecified whether esophagitis present Belching Procedures EGD DIAGNOSTIC ESOPHAGOGASTRODUODENOSC OPY TRANSORAL DIAGNOSTIC Ivonne Balderas APRN.[employer] EDUCATION TEACHER [address] [place] [address] [place] [phone] Referral ID Status Reason Start Date Expiration Date V isits Requested Visits Authorized [id number] Closed Auto-Generate d Referral 02/03/2024 02/02/2025 1 1 [facility] for visit Narrative* Diagnostic Procedure Only (Routine) - Closed Specialty Diagnoses / Procedures [facility] Referred To Contact XR IMAGING Diagnoses Anterolisthesis of lumbar spine Procedures XR LUMBAR LIMITED 2V FLEX/EXT RADEX SPINE LUMBOSACRAL 2/3 VIEWS Talha Fraga MD [address] [place] [address] Xr Imaging [id number] Referral ID Status Reason Start Date Expiration Date V isits Requested Visits Authorized [id number] Closed Auto-Generate d Referral 01/24/2023 02/23/2024 1 1 [facility] for visit Narrative* Outpatient Procedure (Routine) - Closed Specialty Diagnoses / Procedures [facility] Referred To Contact [facility] Diagnoses Screening for colon cancer Procedures COLONOSCOPY SCREENING COLONOSCOPY FLX DX W/COLLJ SPEC WHEN PFRMD Ivonne Balderas, YUSRA.H[employer]CHO[employer] SPECIAL EDUCATION TEACHER [address] [place] [address] [facility] [place] [address] [place] [address] Referral ID Status Reason Start Date Expiration Date V isits Requested Visits Authorized [id number] Closed Auto-Generate d Referral 02/03/2024 02/02/2025 1 1 [facility] Summary Purpose Family History No Family History Records FoundNo Family History Records Found Advance Directives No Advanced Directives Records FoundNo Advanced Directives Records Found Reason for Referral Specialty Diagnoses / Procedures Referred By Contjavier t Referred To Contact General Surgery Diagnoses Screening for colon cancer Procedures CONSULT TO GENERAL SURGERY OFFICE/OUTPATIENT [facility] 60 MINUTES Talha Fraga MD [address] [place] [address] Referral ID Status Reason Start Date Expiration Date Visits Requested Visits Authorized [id number] Authorized PCP Requested Referral 01/31/2024 01/30/2025 1 1 Additional Source Comments (unrecognized sect ion and content) No Status Records FoundNo Status Records Found INFORMATION SOURCE (unrecogn ized section and content) DATE CREATED AUTHOR 01/06/2020 [facility] DATE CREATED AUTHOR AUTHOR'S ORGANIZ ATION 09/26/2024 [facility] Source Comments (unrecognize d section and content) In the event this informatio n is protected by the Federal Confidentiality of Alcohol and Drug Abuse Patient Records regulations: The Federal rules restrict any use of the information to criminally investigate or prosecute any alcohol or drug abuse patient.[facility] the event this information is protected by the Federal Confidentiality of Alcohol and Drug Abuse Patient Records regulations: The Federal rules restrict any use of the information to criminally investigate or prosecute any alcohol or drug abuse patient.[facility] the event this information is protected by the Federal Confidentiality of Alcohol and Drug Abuse Patient Records regulations: The Federal rules restrict any use of the information to criminally investigate or prosecute any alcohol or drug abuse patient.[facility] the event this information is protected by the Federal Confidentiality of Alcohol and Drug Abuse Patient Records regulations: The Federal rules restrict any use of the information to criminally investigate or prosecute any alcohol or drug abuse patient.[facility] the event this information is protected by the Federal Confidentiality of Alcohol and Drug Abuse Patient Records regulations: The Federal rules restrict any use of the information to criminally investigate or prosecute any alcohol or drug abuse patient.[facility] the event this information is protected by the Federal Confidentiality of Alcohol and Drug Abuse Patient Records regulations: The Federal rules restrict any use of the information to criminally investigate or prosecute any alcohol or drug abuse patient.[facility] the event this information is protected by the Federal Confidentiality of Alcohol and Drug Abuse Patient Records regulations: The Federal rules restrict any use of the information to criminally investigate or prosecute any alcohol or drug abuse patient.[facility] the event this information is protected by the Federal Confidentiality of Alcohol and Drug Abuse Patient Records regulations: The Federal rules restrict any use of the information to criminally investigate or prosecute any alcohol or drug abuse patient.[facility] the event this information is protected by the Federal Confidentiality of Alcohol and Drug Abuse Patient Records regulations: The Federal rules restrict any use of the information to criminally investigate or prosecute any alcohol or drug abuse patient.[facility] the event this information is protected by the Federal Confidentiality of Alcohol and Drug Abuse Patient Records regulations: The Federal rules restrict any use of the information to criminally investigate or prosecute any alcohol or drug abuse patient.[facility] the event this information is protected by the Federal Confidentiality of Alcohol and Drug Abuse Patient Records regulations: The Federal rules restrict any use of the information to criminally investigate or prosecute any alcohol or drug abuse patient.[facility] the event this information is protected by the Federal Confidentiality of Alcohol and Drug Abuse Patient Records regulations: The Federal rules restrict any use of the information to criminally investigate or prosecute any alcohol or drug abuse patient.[facility] the event this information is protected by the Federal Confidentiality of Alcohol and Drug Abuse Patient Records regulations: The Federal rules restrict any use of the information to criminally investigate or prosecute any alcohol or drug abuse patient.[facility] the event this information is protected by the Federal Confidentiality of Alcohol and Drug Abuse Patient Records regulations: The Federal rules restrict any use of the information to criminally investigate or prosecute any alcohol or drug abuse patient.[facility] the event this information is protected by the Federal Confidentiality of Alcohol and Drug Abuse Patient Records regulations: The Federal rules restrict any use of the information to criminally investigate or prosecute any alcohol or drug abuse patient.[facility] Hospital[facility] the event this information is protected by the Federal Confidentiality of Alcohol and Drug Abuse Patient Records regulations: The Federal rules restrict any use of the information to criminally investigate or prosecute any alcohol or drug abuse patient.[facility] HospitalIn the event this information is protected by the Federal Confidentiality of Alcohol and Drug Abuse Patient Records regulations: The Federal rules restrict any use of the information to criminally investigate or prosecute any alcohol or drug abuse patient.[facility] Hospital[facility] the event this information is protected by the Federal Confidentiality of Alcohol and Drug Abuse Patient Records regulations: The Federal rules restrict any use of the information to criminally investigate or prosecute any alcohol or drug abuse patient.[facility] Reason for Visit (unrecogniz ed section and content) Reason Comments Medicare Wellness Exam Reason Onset Date Comments Refill Request 07/16/2022 Reason Comments Insurance Authorization Etodolac Reason Comments Medicare Wellness Exam Reason Comments Results Reason Comments Consult Specialty Diagnoses / Procedures Referred By Fortunato stephens Referred To Contact General Surgery Diagnoses Screening for colon cancer Procedures CONSULT TO GENERAL SURGERY OFFICE/OUTPATIENT [facility] 60 MINUTES Talha Fraga MD [address] [place] [address] Referral ID Status Reason Start Date Expiration Date V isits Requested Visits Authorized [id number] Closed PCP Requested Referral 01/31/2024 01/30/2025 1 1 Reason Comments Cough Sob with intermitten t low grade temp x 1 day Reason Onset Date Comments Refill Request 07/31/2024 Reason Onset Date Comments Refill Request 10/14/2024 Care Teams (unrecognized sec tion and content) Hand Laster Relationship Specialty Start Date End Date Talha Fraga MD [address] [place] [address] PCP - General Family Medicine 10/27/20 Hand Laster Relationship Specialty Start Date End Date Talha Fraga MD [address] [place], [place] [id number] PCP - General Family Medicine 10/27/20 Hand Laster Relationship Specialty Start Date End Date Talha Fraga MD [address] [place] [address] PCP - General Family Medicine 10/27/20 Hand Laster Relationship Specialty Start Date End Date Talha Fraga MD [address] [place] [address] PCP - General Family Medicine 10/27/20 Hand Laster Relationship Specialty Start Date End Date Talha Fraga MD [address] [place] [address] PCP - General Family Medicine 10/27/20 Hand Laster Relationship Specialty Start Date End Date Talha Fraga MD [address] [place] [address] PCP - General Family Medicine 10/27/20 Hand Laster Relationship Specialty Start Date End Date Talha Fraga MD [address] [place] [address] PCP - General Family Medicine 10/27/20 Hand Laster Relationship Specialty Start Date End Date Talha Fraga MD [address] [place] [address] PCP - General Family Medicine 10/27/20 Hand Laster Relationship Specialty Start Date End Date Talha Fraga MD [address] [place] [address] PCP - General Family Medicine 10/27/20 Hand Laster Relationship Specialty Start Date End Date Talha Fraga MD [address] [place] [address] PCP - General Family Medicine 10/27/20 Hand Laster Relationship Specialty Start Date End Date Talha Fraga MD [address] [place] [address] PCP - General Family Medicine 10/27/20 Hand Laster Relationship Specialty Start Date End Date Talha Fraga MD [address] [place] [address] PCP - General Family Medicine 10/27/20 Aditi Mtz APRN.HIGH SCHOOL SPECIAL EDUCATION TEACHER [address] [place] [address] Resident Athletic Trainer Family Medicine 04/04/24 Alee Pham PA-C [address] [place] [address] Resident Athletic Trainer Family Medicine 04/04/24 Hand Laster Relationship Specialty Start Date End Date Talha Fraga MD [address] [place] [address] PCP - General Family Medicine 10/27/20 Aditi Mtz APRN.HIGH SCHOOL SPECIAL EDUCATION TEACHER [address] [place] [address] Resident Athletic Trainer Family Medicine 04/04/24 Alee Pham PA-C [address] [place] [address] Resident Athletic Trainer Family Medicine 04/04/24 Hand Laster Relationship Specialty Start Date End Date Talha Fraga MD [address] [place] [address] PCP - General Family Medicine 10/27/20 Aditi Mtz APRN.HIGH SCHOOL SPECIAL EDUCATION TEACHER [address] [place] [address] Resident Athletic Trainer Family Medicine 04/04/24 Alee Pham PA-C [address] [place] [address] Resident Athletic Trainer Family Medicine 04/04/24 Hand Laster Relationship Specialty Start Date End Date Talha Fraga MD [address] [place] [address] PCP - General Family Medicine 10/27/20 Aditi Mtz APRN.HIGH SCHOOL SPECIAL EDUCATION TEACHER [address] [place] [address] Resident Athletic Trainer Family Medicine 04/04/24 Alee Pham PA-C [address] [place] [address] Resident Athletic Trainer Family Medicine 04/04/24 Hand Laster Relationship Specialty Start Date End Date Talha Fraga MD [address] [place] [address] PCP - General Family Medicine 10/27/20 Alee Pham PA-C [address] [place] [address] Resident Athletic Trainer Family Medicine 04/04/24 09/27/24 Aditi Mtz APRN.HIGH SCHOOL SPECIAL EDUCATION TEACHER [address] [place] [address] Resident Athletic Trainer Family Medicine 09/28/24 Alee Pham PA-C [address] [place] [address] Resident Athletic Trainer Family Medicine 09/28/24 Hand Laster Relationship Specialty Start Date End Date Talha Fraga MD [address] [place] [address] PCP - General Family Medicine 10/27/20 Aditi Mtz APRN.CNP [address] [place] [address] [facility] 09/28/24 Alee Pham PA-C [address] [place] [address] [facility] 09/28/24 FOR RECORDS PERTAINING TO PATIENTS WHO ARE OR HAVE BEEN ENROLLED IN A CHEMICAL DEPENDENCY/SUBSTANCEABUSE PROGRAM, SOME INFORMATION MAY BE OMITTED. This clinical summary was aggregated from multiple sources. Caution should be exercised in using it in the provision of clinical care. This summary normalizes information from multiple sources, and as a consequence, information in this document may materially change the coding, format and clinical context of patient data. In addition, data may be omitted in some cases. CLINICAL DECISIONS SHOULD BE BASED ON THE PRIMARY CLINICAL RECORDS. [employer] provides no warranty or guarantee of the accuracy or completeness of information in this document.
--- NOTE | 2024-12-27 12:24 | CM.ED ---
Social Work Date of referral: 12/27/24 Reason for referral: Advanced Care Directives (ACD's) not on file. Patient provided consent for Social Work visit. Staff Electrical Engineer requested patient bring in a copy of the ACD's which patient stated he will probably not do as he is not expecting to come to the hospital again. Staff Electrical Engineer provided education however patient didn't appear to be responsive to request. Nicole Underwood, CAKE PRESS OPERATOR HELPER, [employer]
[2024-12-27 12:26] LABS: Hematocrit 41.7 % (40-54); Hemoglobin 14.2 g/dL (13.0-16.5); Immature Granulocytes Count 0.020 X10^3/uL (0.0-0.0); Mean Corp Hgb Conc 34.1 g/dL (32-36); Mean Corpuscular Volume 90.3 fL (80-94); Mean Platelet Vol. 9.6 fl (6.2-12.0); NRBC Flagged by Analyzer 0 % (0-5); Platelet Count 231 K/mm3 (150-450); RBC Distribution Width CV 14.3 % (11.6-14.6); RBC Distribution Width SD 46.9 fl (35.1-43.9); Red Blood Count 4.62 M/mm3 (4.6-6.2); White Blood Count 7.0 K/mm3 (4.4-11.0)
[2024-12-27 12:48] LABS: Anion Gap 11 (5-15); BUN 14 mg/dL (4-19); BUN/Creat Ratio 15.6 RATIO (10-20); Calcium,Total 8.8 mg/dL (7.6-11.0); Carbon Dioxide 23.7 mmol/L (21.0-32.0); Chloride 105 mmol/L (98-108); Estimated Creatinine Clearance 91.81 ml/min (50-250); Glucose 163 mg/dL (70-99); Potassium 4.1 mmol/L (3.3-5.1)
[2024-12-27] MEDS: Pantoprazole Sodium 40 MG in 0.9% Normal Saline (100mL MB+) 100 ML 300 MG IV (12:51)
[2024-12-27 13:24] VITALS: BP 198/97; PULSE 81; RESP 16; TEMP 36.1; O2SAT 100
== END 2024-12-27 13:37 | disposition home or self-care (01) ==
PROVIDERS: Emergency Provider Emergency Medicine; PCP Family Medicine; Visit Provider Emergency Medicine
DX: K92.2 Gastrointestinal hemorrhage, unspecified (principal)
CPT/HCPCS: 80048; 85025; 86850; 86900; 86901; 96360; 99282; A4216

== ENCOUNTER → 2024-12-31 | Outpatient (CLI) | payer MEDICARE, BC, SELFPAY ==
[2024-12-31 13:01] LABS: Hematocrit 46.0 % (40-54); Hemoglobin 15.6 g/dL (13.0-16.5); Immature Granulocytes Count 0.030 X10^3/uL (0.0-0.0); Mean Corp Hgb Conc 33.9 g/dL (32-36); Mean Corpuscular Volume 90.6 fL (80-94); Mean Platelet Vol. 9.7 fl (6.2-12.0); NRBC Flagged by Analyzer 0 % (0-5); Platelet Count 248 K/mm3 (150-450); RBC Distribution Width CV 14.4 % (11.6-14.6); RBC Distribution Width SD 47.8 fl (35.1-43.9); Red Blood Count 5.08 M/mm3 (4.6-6.2); White Blood Count 8.4 K/mm3 (4.4-11.0)
== END | disposition home or self-care (01) ==
LOC: LAB 12:27
PROVIDERS: PCP Family Medicine; Referring Provider Nurse Practitioner Acute Care; Visit Provider Nurse Practitioner Acute Care
DX: K62.5 Hemorrhage of anus and rectum (principal)
CPT/HCPCS: 36415; 85025

== ENCOUNTER 2025-02-03 12:44 | Day surgery (SDC) | payer MEDICARE, BC, SELFPAY ==
[2025-02-03] VITALS (9 sets, daily range): BP systolic 106–164; BP diastolic 73–100; PULSE 60–72; RESP 16; TEMP 36.1–36.5; O2SAT 93–100; BMI 29.6
--- NOTE | 2025-02-03 12:54 | PCM.HP.STD ---
HPI - General General Date of Admission: 02/03/25 Date of Service: 02/03/25 Chief Complaint: Lower GI bleeding HPI Narrative ARTHUR DIEGO, is a 69 M who presents with the Chief Complaint: bleeding - 12/27/2024 blood in stool, red blood, 4 episodes, stools appeared formed/soft - denies any melena - denies any abdominal pain - denies any rectal pain - denies taking any anticoagulants - Meloxicam daily since August - he does have a HH and c/o belching - he was taking prilosec OTC - ER discharged with pantoprazole 40mg BID - reports having an EGD in 2013 - EGD January 2024 per patient this was unremarkable and was done for a 10 year screening - Colonoscopy attempted January 2024 - incomplete due to poor prep, did not drink all of the Golytely prep - denies any weight loss - denies any family h/o colon CA - dad with pancreatic CA - sister with ovarian cancer ] FORMERLY [facility], [facility]–1983 Medical History Wears glasses Hx of degenerative disc disease Gout Non-smoker Hypertension GERD (gastroesophageal reflux disease) Hiatal hernia Home Medications ?Medication ?Instructions ?Recorded ?Last Taken ?Type lisinopril 20 mg tablet 20 mg PO QDAY 12/31/24 Unknown History sodium sul 1.479 gram-potas ch See Rx Instructions PO .COMPLEX 12/31/24 Unknown Rx 0.188 gram-magnes sul 0.225 gram #28 tabs tablet (Sutab) omeprazole 20 mg capsule,delayed 20 mg PO DAILY 01/28/25 Unknown History release Allergy/AdvReac Type Severity Reaction Status Date / Time Penicillins (PCN) Allergy Intermediate Hives Verified 01/28/25 14:24 Social History Smoking Status: Never smoker ROS Constitutional Constitutional: Denies fatigue, fever(s), poor appetite, weight gain or weight loss Gastrointestinal Gastrointestinal: Denies belching, bloating, change in bowel habits, change in stool character, chewing difficulty, coffee ground emesis, constipation, cramping, diarrhea, dyspepsia, dysphagia, early satiety, excessive flatus, fecal incontinence, heartburn, hematemesis, hematochezia, hemorrhoids, loose stools, melena, nausea, odynophagia, rectal bleeding, tenesmus, vomiting or weight changes Physical Exam Const alert, oriented x3, no apparent distress and healthy appearing General Appearance: cooperative GI normal to inspection, nondistended, normoactive bowel sounds, soft to palpation, non-tender and non-distended Percussion: normal to percussion Rectal Exam: deferred Assessment & Plan Assessment/Plan (1) Rectal bleeding: PLAN: Assessment and Plan Assessment and Plan (1) Rectal bleeding: Status: Acute Orders: Orders CBC W/Diff, Automated Today K62.5 - Hemorrhage of anus and rectum Medications: New sod sulf-pot chloride-mag sulf 1.479-0.188- 0.225 gram (Sutab) Take orally take as directed for split dose bowel prep. Do not follow instructions on box. 28 tabs 0RF pantoprazole 40 mg PO QDAY 90 tabs 0RF Discontinued omeprazole Discontinued Reason: Order Changed 20 mg PO QDAY pantoprazole (Protonix) Discontinued Reason: Order Completed 40 mg PO BID 60 tabs 0RF Plan 69-year-old male presents for initial consultation with complaints of rectal bleeding. This past Saturday he experienced 4 episodes of BRBPR with bowel movements. He denies any associated abdominal pain. He was taking omeprazole 20 mg daily as well as meloxicam daily. He was seen in the emergency department on 12/27/2024 and hemoglobin was 14.2 at that time. He has not continued to have any ongoing bleeding. He discontinued meloxicam as well as omeprazole and was started on pantoprazole 40 mg twice daily by ER. He denies any heartburn, epigastric pain, nausea, or vomiting. HeHe reports an EGD was unremarkable 6 years January 2024. I have reduced pantoprazole to 40 mg accordingly. Recommended he avoid nonsteroidal medications. He will complete a CBC today and schedule colonoscopy. Patient Instructions: CBC today Colonoscopy - SuTab
[2025-02-03] MEDS: Lactated Ringers 1,000 ML 15 ML IV (13:26)
--- NOTE | 2025-02-03 13:37 | PCM.PRE.AN2 ---
ASA Classification* ASA Classification ASA Classification: 2 Assessment & Plan Anesthesia* Anesthesia Assessment Anesthesia Assessment: Discussed sedation and/or anesthesia options, risks, benefits, and alternatives with patient/parents/legal guardian/POA. Questions invited. The patient/parents/legal guardian/POA seems to understand and agrees to proceed with anesthesia plan. Reviewed the physical assessment, medical history, allergy history and patient home medications list prior to surgery/procedure/anesthetic and documented any changes. Performed airway and anesthesia risk assessments. Anesthesia Type Anesthesia Type: MAC History Source History Obtained from:: Patient and Chart Anesthesia Focused Assessment* Temperature: 97.7 F Pulse Rate: 72 Blood Pressure: 164/100 Respiratory Rate: 16 Pulse Ox: 100 Oxygen Delivery Method: Room Air Airway Assessment Mouth opens: >3 cm Mallampati Score: II Teeth Condition: Intact and Missing Neck Range of motion (ROM): Limited ROM Labs Anesthesia Preop lab: CBC WBC, (4.4-11.0) 8.4 K/mm3 12/31/24, 12:30 RBC, (4.6-6.2) 5.08 M/mm3 12/31/24, 12:30 Hgb, (13.0-16.5) 15.6 g/dL 12/31/24, 12:30 Hct, (40-54) 46.0 % 12/31/24, 12:30 Plt Count, (150-450) 248 K/mm3 12/31/24, 12:30 CHEMISTRY Potassium, (3.3-5.1) 4.1 mmol/L 12/27/24, 12:20 Sodium, (133-145) 140 mmol/L 12/27/24, 12:20 BUN, (4-19) 14 mg/dL 12/27/24, 12:20 Creatinine, (0.70-1.20) 0.88 mg/dL 12/27/24, 12:20 Glucose, (70-99) 163 mg/dL H 12/27/24, 12:20 COAG Pre-Assessment Diagnosis/Proposed Procedure Planned Operative Procedure(s): Colonoscopy Anesthesia History Anesthesia History - 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 When Was Last Pacemaker Check QUESTION #4 FULL TEXT: You/Your Family Experience fever (hyperthermia) with Anesthesia Last Oral Intake Last Oral intake: Last Oral Intake NPO since 11:00 02/03/25 13:21 Meds taken in AM with sips of water? Meds patient instructed to bowel prep last taken at 02/03/25 13:21 take am of surgery 1100 PONV PONV - soap drier tender: PONV - soap drier tender Female No 01/28/25 14:29 HX of Motion Sickness No 01/28/25 14:29 HX of N/V After Surgery No 01/28/25 14:29 Non-Smoker Yes 01/28/25 14:29 Duration of Surgery greater No 01/28/25 14:29 than 60 minutes Number of Risk Factors 1 01/28/25 14:29 PONV Score Low Risk 01/28/25 14:29 Height & Weight Height & Weight: Anesthesia: Height & Weight Height 5 ft 9 in 02/03/25 13:21 Weight: 91 kg 02/03/25 13:21 Body Mass Index (BMI) 29.6 02/03/25 13:21 Respiratory Assessment Respiratory Assessment - soap drier tender: Respiratory Tract Infection Hx - soap drier tender Hx Respiratory Tract Infection No 01/28/25 14:29 STOP Sleep Apnea STOP Sleep Apnea - soap drier tender: STOP Sleep Apnea - soap drier tender Hx Hypertension Yes 01/28/25 14:29 Hx Sleep Apnea No 01/28/25 14:29 CPAP BIPAP Do you snore loudly (louder No 01/28/25 14:29 than talking or can be heard Do you often feel tired/ No 01/28/25 14:29 fatigued/ sleepy during daytime? Has anyone observed you stop No 01/28/25 14:29 breathing during sleep? STOP Results Negative 01/28/25 14:29 QUESTION #5 FULL TEXT : Do you snore loudly (louder than talking or can be heard through closed doors)? 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 Specify any problems Hx of Preganancy in last 3 N/A 01/28/25 14:29 Months Nurse Filling Out Transfusion JZOLLINGE 01/28/25 14:29 & Questions: Date: 01/28/25 01/28/25 14:29 Time: 14:30 01/28/25 14:29 Patient unable to answer at this time (ie. confused, unrespo /Reproduction History /Reproductive History - soap drier tender: /Reproductive Hx- soap drier tender Hx Now No 01/28/25 14:29 Gestational Age (in weeks): EDC: Hx Hx Para Hx Section SAB No 01/28/25 14:29 Active Medications Active Medications: Current Medications Generic Name Dose Route Start Last Admin Trade Name Freq PRN Reason Stop Dose Admin Lactated Ringer's 1,000 mls @ 15 mls/hr 02/03/25 13:00 02/03/25 13:26 IV 15 mls/hr .Q48H NICKIE Administration PFSH Medical History Wears glasses Hx of degenerative disc disease Gout Non-smoker Hypertension GERD (gastroesophageal reflux disease) Hiatal hernia Home Medications ?Medication ?Instructions ?Recorded ?Last Taken ?Type lisinopril 20 mg tablet 20 mg PO QDAY 12/31/24 Unknown History sodium sul 1.479 gram-potas ch See Rx Instructions PO .COMPLEX 12/31/24 Unknown Rx 0.188 gram-magnes sul 0.225 gram #28 tabs tablet (Sutab) omeprazole 20 mg capsule,delayed 20 mg PO DAILY 01/28/25 Unknown History release Allergy/AdvReac Type Severity Reaction Status Date / Time Penicillins (PCN) Allergy Intermediate Hives Verified 02/03/25 13:19 Social History Smoking Status: Never smoker Review of Systems (Anesthesia) ROS Narrative System reviewed and no additional complaints, except as documented.
--- NOTE | 2025-02-03 13:45 | COLBX_PTH ---
PATIENT: ARTHUR DIEGO LOC: EN U#:[id number] AGE/SX: 69/M ROOM: RE02/03/[address]: Dr. Wang Marsh DO : 1955 BED: DIS: 02/03/2025 SPEC #: [id number] RECD: 02/04/25 07:35 STATUS: RYANN MARIPOSA #: [id number] ANDI: 02/03/25 13:[address]: Wang Marsh DEPT: SURGICAL PATHOLOGY RECD BY: Gayathri Alva ENTERED: 02/04/25 10:12 SP TYPE: COLON BX OTHR DR: Dr. Talha Gong MD Tissues: A - Ileum, NOS B - SPLENIC FLEXURE Procedures: Surgery Specimen Level IV HEADER OPERATION: Colonoscopy and biopsy and polypectomy and hemorrhoid banding PRE-OP DIAGNOSIS: Rectal bleeding TISSUE SUBMITTED: A- Terminal ileum biopsy, B- Splenic flexure polyp x2 MICROSCOPIC DIAGNOSIS A. Small intestine, terminal ileum, biopsy: * Small bowel mucosa with no pathologic change B. Splenic flexure, polyp, biopsy: * Hyperplastic polyp MICROSCOPIC DESCRIPTION Slides are reviewed. GROSS DESCRIPTION A. Received in fixative is one container labeled with the patient's name and designated Terminal ileum biopsy. The specimen consists of two irregular fragments of feliciano tissue, each measuring 0.4 cm. The specimen is totally submitted in one cassette. B. Received in fixative is one container labeled with the patient's name and designated Splenic flexure polyp. The specimen consists of multiple irregular fragments of feliciano tissue that in aggregate measure 1 x 0.5 x 0.1 cm. The specimen is totally submitted in one cassette. [place] 02/04/2025 CPT:33667m6
--- NOTE | 2025-02-03 14:23 | OP.PROVAT_ITS ---
02/03/2025 Talha Gong MD Re : Colonoscopy procedure for Wu Tabares Dear Dr. Gong This procedure was performed on Monday, February 03, 2025. My impressions and recommendations are as follows: Impressions : - Hemorrhoids found on perianal exam. - Non-bleeding external and internal hemorrhoids. Banded. - Diverticulosis in the entire examined colon. - Two 8 mm polyps at the splenic flexure and in the transverse colon, removed with a hot snare. Resected and retrieved. - Moderate mucosal changes were found in the ileum secondary to ileitis. Biopsied. Recommendations : - Discharge patient to home. - Resume previous diet. - Continue present medications. - Await pathology results. - Repeat colonoscopy in 5 years for surveillance. My findings are described in the full procedure note, which is enclosed. If I can be of further assistance, please feel free to contact me at . Sincerely, Wang Marsh, 02/03/2025 2:23:29 PM This report has been signed electronically.
--- NOTE | 2025-02-03 14:23 | OP.COLON_ITS ---
Patient Name: Wu Tabares Procedure Date: 02/03/2025 1:37 PM Date of : 1955 Age: 69 Procedure: Colonoscopy Indications: Hematochezia Providers: Wang Marsh DO Referring MD: Talha Gong MD Medicines: Monitored Anesthesia Care Patient Profile: This is a 69 year old male. Refer to note in patient chart for documentation of history and physical. Last Colonoscopy: date unknown. Complications: No immediate complications. Procedure: Pre-Anesthesia Assessment: - Prior to the procedure, a History and Physical was performed, and patient medications and allergies were reviewed. The patient is competent. The risks and benefits of the procedure and the sedation options and risks were discussed with the patient. All questions were answered and informed consent was obtained. Patient identification and proposed procedure were verified by the physician in the pre-procedure area. Mental Status Examination: alert and oriented. Airway Examination: normal oropharyngeal airway and neck mobility. Respiratory Examination: clear to auscultation. CV Examination: normal. ASA Grade Assessment: II - A patient with mild systemic disease. After reviewing the risks and benefits, the patient was deemed in satisfactory condition to undergo the procedure. The anesthesia plan was to use monitored anesthesia care (MAC). Immediately prior to administration of medications, the patient was re-assessed for adequacy to receive sedatives. The heart rate, respiratory rate, oxygen saturations, blood pressure, adequacy of pulmonary ventilation, and response to care were monitored throughout the procedure. The physical status of the patient was re-assessed after the procedure. After I obtained informed consent, the scope was passed under direct vision. Throughout the procedure, the patient's blood pressure, pulse, and oxygen saturations were monitored continuously. The Colonoscope was introduced through the anus and advanced to the terminal ileum. The colonoscopy was performed without difficulty. The patient tolerated the procedure well. The quality of the bowel preparation was adequate. The terminal ileum, ileocecal valve, appendiceal orifice, and rectum were photographed. Scope In: 1:50:02 PM Scope Withdrawal Time 0 hours 19 minutes 3 seconds Scope Out: 2:12:57 PM Total Procedure Duration Time 0 hours 22 minutes 55 seconds Findings: Hemorrhoids were found on perianal exam. Non-bleeding external and internal hemorrhoids were found during retroflexion. The hemorrhoids were Grade III (internal hemorrhoids that prolapse but require manual reduction). The endoscope was withdrawn. A hemorrhoid was isolated with anoscopy. The ShortShot ligator was positioned over the hemorrhoid at the left lateral position. Suction was applied and one rubber band was placed over the hemorrhoid. This was checked to make certain that the muscularis was free of the band. Post-banding digital rectal exam showed band in good position. There were no complications. Multiple small and large-mouthed diverticula were found in the entire colon. Two sessile polyps were found in the splenic flexure and transverse colon. The polyps were 8 mm in size. These polyps were removed with a hot snare. Resection and retrieval were complete. Verification of patient identification for the specimen was done. Segmental moderate mucosal changes characterized by erosions, erythema and aphthous ulcerations were found in the terminal ileum. Biopsies were taken with a cold forceps for histology. Verification of patient identification for the specimen was done. Estimated blood loss was minimal. Impression: - Hemorrhoids found on perianal exam. - Non-bleeding external and internal hemorrhoids. Banded. - Diverticulosis in the entire examined colon. - Two 8 mm polyps at the splenic flexure and in the transverse colon, removed with a hot snare. Resected and retrieved. - Moderate mucosal changes were found in the ileum secondary to ileitis. Biopsied. Recommendation: - Discharge patient to home. - Resume previous diet. - Continue present medications. - Await pathology results. - Repeat colonoscopy in 5 years for surveillance. Procedure Code(s): --- Professional --- 70602, Colonoscopy, flexible; with removal of tumor(s), polyp(s), or other lesion(s) by snare technique 80722, 59, Colonoscopy, flexible; with biopsy, single or multiple 26803, Hemorrhoidectomy, internal, by rubber band ligation(s) CPT copyright 2021 [employer]. All rights reserved. The codes documented in this report are preliminary and upon lumber cutter review may be revised to meet current compliance requirements. Wang Marsh DO 02/03/2025 2:23:29 PM This report has been signed electronically. Number of Addenda: 0 Note Initiated On: 02/03/2025 1:37 PM
--- NOTE | 2025-02-03 14:26 | PCM.POST.ANE ---
Anesthesia: Postop Eval I Current Vital Signs Temperature: 97 F Pulse Rate: 63 Blood Pressure: 106/74 Respiratory Rate: 16 Pulse Ox: 93 Oxygen Delivery Method: Room Air Assessment Airway patent: Yes Spontaneous unlabored respirations: Yes Mental status: Awake and Calm nausea: No Vomiting: No Anesthesia Complication: Yes Anesthesia Complication Comment:: coughing episode w/O2 desat, suctioned, dexamethasone adm IV Fluid Hydration Crystalloid volume administer (ml): 500 Total IV fluid infused: 500 Progress Note Anesthesia document: Postop Eval 1 completed: Yes
--- NOTE | 2025-02-03 15:15 | PCM.POSTANE2 ---
Anesthesia Postop Eval I Sum Postop Eval Completion status Anesthesia document: Postop Eval 1 completed: Yes Anesthesia Postop Eval I Summary Anesthesia Postop Eval I Summary: Anesthesia Postop Eval I: Assessment Summary Airway patent Yes 02/03/25 14:28 [email or web address] Spontaneous unlabored Yes 02/03/25 14:28 [email or web address] respirations Mental status Awake,Calm 02/03/25 14:28 [email or web address] nausea No 02/03/25 14:28 [email or web address] Vomiting No 02/03/25 14:28 [email or web address] Anesthesia Postop Eval I: Fluid Summary Crystalloid volume administer 500 02/03/25 14:28 [email or web address] (ml) Colloids volume administered ( ml) Blood Product volume administered (ml) Total IV fluid infused 500 02/03/25 14:28 [email or web address] Anesthesia Postop Eval I: Summary Notes Anesthesia Complication Yes 02/03/25 14:28 [email or web address] Anesthesia Complication coughing episode w 02/03/25 14:28 [email or web address] Comment: /O2 desat, suctioned, dexamethasone adm IV Post-operative progress note Anesthesia: Postop Eval II Evaluation Mental status: Awake and Calm Pain Level: 1 nausea: No Vomiting: No Complications Anesthesia Complication: No
== END 2025-02-03 15:09 | disposition home or self-care (01) ==
LOC: EN 12:44 → AC 12:46
PROVIDERS: PCP Family Medicine; Referring Provider Family Medicine; Visit Provider Internal Medicine Gastroenterology
PROC: 0DJD8ZZ Inspection of Lower Intestinal Tract, Via Natural or Artificial Opening Endoscopic (ICD-10-PCS; CPT 45378; principal; 2025-02-03 13:40)
DX: K62.5 Hemorrhage of anus and rectum (principal); K57.30 Diverticulosis of large intestine without perforation or abscess without bleeding; K21.9 Gastro-esophageal reflux disease without esophagitis; I10 Essential (primary) hypertension; K63.5 Polyp of colon; Z79.899 Other long term (current) drug therapy; K64.4 Residual hemorrhoidal skin tags; K64.2 Third degree hemorrhoids; K63.89 Other specified diseases of intestine
CPT/HCPCS: 45380; 45385; 45398; 88305; J2405